=== PATIENT | female | born 1970 | race African-American/Black ===

== ENCOUNTER 2019-11-20 17:45 | Emergency (ER) | payer MEDICARE, MEDICAID, SELFPAY ==
[2019-11-20 17:47] VITALS: BP 125/97; PULSE 94; RESP 20; TEMP 36.2; O2SAT 100
[2019-11-20 19:18] VITALS: BP 125/85; PULSE 98; RESP 18; O2SAT 99
--- NOTE | 2019-11-20 19:30 | ED.EYEPROB ---
HPI - Eye Problem General Chief complaint: Eye Problems <Nikita Taveras PA-C - Last Filed: 11/20/19 19:40> Stated complaint: left eye pain <Nikita Taveras PA-C - Last Filed: 11/20/19 19:40> Time Seen by Provider: 11/20/19 18:38 <Nikita Taveras PA-C - Last Filed: 11/20/19 19:40> Source: patient <Nikita Taveras PA-C - Last Filed: 11/20/19 19:40> Mode of arrival: ambulatory <Nikita Taveras PA-C - Last Filed: 11/20/19 19:40> Limitations: no limitations <Nikita Taveras PA-C - Last Filed: 11/20/19 19:40> History of Present Illness HPI Narrative: Patient is a 49-year-old female who presents to emergency department for evaluation of left eye irritation for the last day noting that she believes she may have scratched her eye during the sleep patient notes 2 weeks ago she did the same thing and had accidentally poked herself in the eye but has started to have improvement. Patient notes irritation to the left eye worse with any movement with light sensitivity and some blurred vision <Nikita Taveras PA-C - Last Filed: 11/20/19 19:40> Related Data Allergies/adverse reactions: Allergies Allergy/AdvReac Type Severity Reaction Status Date / Time No Known Allergies Allergy Verified 11/20/19 17:59 <Nikita Taveras PA-C - Last Filed: 11/20/19 19:40> Review of Systems Review of Systems: All systems reviewed & are unremarkable except as noted in HPI and below <Nikita Taveras PA-C - Last Filed: 11/20/19 19:40> [facility] Past Medical History Medical History: Medical History Lung cancer <Nikita Taveras PA-C - Last Filed: 11/20/19 19:40> Social History Social History: Social History Smoking status: Former smoker <ANIA Ordaz Last Filed: 11/20/19 19:40> Exam Narrative: Exam Narrative: GENERAL: Well-appearing, well-nourished, and in no acute distress. HEAD: Normocephalic, atraumatic. EYES: PERRLA and EOMI. left eye with corneal abrasion over the iris at 6:00 conjunctival injection with clear discharge. . ENT: Nares clear, no rhinorrhea or epistaxis. Mucous membranes moist. CHEST: Clear to auscultation. No respiratory distress. No wheezes rales or rhonchi HEART: Regular rate and rhythm. No murmur heard. EXTREMITIES: Normal range of motion. No edema. SKIN: Warm, dry, no rash. NEURO: No focal deficits. Alert and oriented x3. Neurovascularly intact. Capillary refill less than 2 seconds PSYCH: Normal mood and affect. <ANIA Ordaz Last Filed: 11/20/19 19:40> Course Course Emergency Course: Patient in the room aware of case findings treatment plan and diagnosis agreeing to follow-up as directed with ophthalmology <ANIA Ordaz Last Filed: 11/20/19 19:40> Vital Signs Vital signs: Vital Signs Temperature 97.2 F L 11/20/19 17:47 Pulse Rate 94 11/20/19 17:47 Respiratory Rate 20 11/20/19 17:47 Blood Pressure 125/97 H 11/20/19 17:47 Pulse Oximetry 100 11/20/19 17:47 Temperature 97.2 F L 11/20/19 17:47 Pulse Rate 98 11/20/19 19:18 Respiratory Rate 18 11/20/19 19:18 Blood Pressure 125/85 11/20/19 19:18 Pulse Oximetry 99 11/20/19 19:18 <ANIA Ordaz Last Filed: 11/20/19 19:40> Vital Signs Temperature 97.2 F L 11/20/19 17:47 Pulse Rate 94 11/20/19 17:47 Respiratory Rate 20 11/20/19 17:47 Blood Pressure 125/97 H 11/20/19 17:47 Pulse Oximetry 100 11/20/19 17:47 Temperature 97.2 F L 11/20/19 17:47 Pulse Rate 98 11/20/19 19:18 Respiratory Rate 18 11/20/19 19:18 Blood Pressure 125/85 11/20/19 19:18 Pulse Oximetry 99 11/20/19 19:18 <Balbina Velasco MD - Last Filed: 11/20/19 19:42> MDM - Eye Problem MDM Narrative Medical decision making narrative: Patient with corneal abrasion in the room in
[2019-11-20 19:50] VITALS: BP 133/87; PULSE 77; RESP 17; TEMP 36.6; O2SAT 97
== END 2019-11-20 19:50 | disposition home or self-care (01) ==
PROVIDERS: Emergency Provider General Practice
DX: S05.02XA Injury of conjunctiva and corneal abrasion without foreign body, left eye, initial encounter (principal); Z87.891 Personal history of nicotine dependence; Z85.118 Personal history of other malignant neoplasm of bronchus and lung; W22.8XXA Striking against or struck by other objects, initial encounter
CPT/HCPCS: 99283

== ENCOUNTER 2020-01-02 19:01 | Emergency (ER) | payer MEDICARE, MEDICAID, SELFPAY ==
[2020-01-02] VITALS (9 sets, daily range): BP systolic 132–166; BP diastolic 80–119; PULSE 65–85; RESP 14–26; TEMP 36.3–37; O2SAT 96–100
--- NOTE | ~2020-01-02 | XR_ITS ---
XR foot RT min 3V DATE: 01/02/2020 19:52 INDICATION: Fall. Great toe injury, pain TECHNIQUE: 4 views of the right foot COMPARISON: None FINDINGS: No fracture or dislocation, periosteal reaction or bone destruction. IMPRESSION: Negative Reviewed, dictated and finalized at location A. IMPRESSION: Negative
--- NOTE | ~2020-01-02 | XR_ITS ---
XR wrist RT 2V DATE: 01/02/2020 21:04 INDICATION: Postoperative reduction examination TECHNIQUE: AP and crosstable lateral postoperative reduction views COMPARISON: 01/02/2020 prereduction radiographs FINDINGS: There is considerable interval improvement of the dorsal displacement, with only approximat caridad 3 mm residual dorsal displacement at the comminuted distal radial intra-articular fracture. There is mild impaction. There is reduction of the dorsal inclination of the distal radial articular surfa ce. Radiocarpal alignment is intact. A wrap superimposes the forearm and wrist. IMPRESSION: 3 mm residual dorsal displacement at comminuted intra-articular fracture of the distal ra dius; reduction of dorsal inclination of distal radial articular surface Reviewed, dictated and finalized at location A. IMPRESSION: 3 mm residual dorsal displacement at comminuted intra-articular fra cture of the distal radius; reduction of dorsal inclination of distal radial ar ticular surface
--- NOTE | ~2020-01-02 | XR_ITS ---
XR wrist RT min 3V DATE: 01/02/2020 19:52 INDICATION: Fall. Right wrist injury, pain, deformity TECHNIQUE: 3 views COMPARISON: None FINDINGS: There is a comminuted intra-articular fracture of the distal radius with almost complete do rsal displacement and prominent apex anterior angulation and associated dorsal inclination of the dis gunnar radial articular surface. Radiocarpal alignment is preserved. IMPRESSION: Comminuted intra-articular fracture of the distal radius with nearly complete dorsal disp lacement and prominent dorsal inclination of distal radial articular surface Reviewed, dictated and finalized at location A. IMPRESSION: Comminuted intra-articular fracture of the distal radius with nearl y complete dorsal displacement and prominent dorsal inclination of distal radia l articular surface
[2020-01-02] MEDS: ONDANSETRON INJ 4 MG/2 ML VIAL IV PUSH (19:49)
[2020-01-02] MEDS: MORPHINE SULFATE 4 MG/ML INJ IV PUSH (19:50)
--- NOTE | 2020-01-02 19:56 | ED.UPPEXIN ---
HPI - Extremity Injury (Upper) General Chief Complaint: Extremity Injury, Upper <Helen Soria PA-C - Last Filed: 01/02/20 22:25> Stated Complaint: R wrist pain <Helen Soria PA-C - Last Filed: 01/02/20 22:25> Time Seen by Provider: 01/02/20 19:23 <Helen Soria PA-C - Last Filed: 01/02/20 22:25> Source: patient <Helen Soria PA-C - Last Filed: 01/02/20 22:25> Mode of arrival: wheelchair <Helen Soria PA-C - Last Filed: 01/02/20 22:25> Limitations: no limitations <Helen Soria PA-C - Last Filed: 01/02/20 22:25> History of Present Illness HPI narrative: This is a 49-year-old female that presents the emergency department for right wrist injury sustained just prior to arrival. Reports she was running and tripped down 3 stairs. Reports catching herself with her right wrist. Reports that she has had pain and deformity of the right wrist. Reports decreased range of motion due to pain. Also notes pain in the right foot. Denies hitting her head, loss of consciousness, or numbness. <Helen Soria PA-C - Last Filed: 01/02/20 22:25> Related Data Allergies/Adverse Reactions: Allergies Allergy/AdvReac Type Severity Reaction Status Date / Time No Known Allergies Allergy Verified 01/02/20 19:29 <Helen Soria PA-C - Last Filed: 01/02/20 22:25> Review of Systems Review of Systems: Narrative: CONSTITUTIONAL: Denies fever MUSCULOSKELETAL: Reports joint pain, and myalgia. NEUROLOGIC: Denies numbness <Helen Soria PA-C - Last Filed: 01/02/20 22:25> All systems reviewed & are unremarkable except as noted in HPI and below <Helen Soria PA-C - Last Filed: 01/02/20 22:25> [facility] Social History Social History: Social History Smoking status: Former smoker Gender identity (if verbalized by the patient): Female <Helen Soria PA-C - Last Filed: 01/02/20 22:25> Exam Narrative: Exam Narrative: GENERAL: Well-appearing, well-nourished, and in no acute distress. HEAD: Normocephalic, atraumatic. EYES: EOMI. CHEST: Clear to auscultation. No respiratory distress. No wheezes rales or rhonchi HEART: Regular rate and rhythm. No murmur heard. Normal peripheral pulses. EXTREMITIES: Normal ROM, except decreased range of motion in the right wrist. Moderate edema and obvious deformity to the right wrist. Normal radial pulses. Normal sensation. Normal DP pulses SKIN: Warm, dry, no rash. NEURO: No focal deficits. Alert and oriented x3. PSYCH: Normal mood and affect <Helen Soria PA-C - Last Filed: 01/02/20 22:25> Course TOLL TEST WORKER/PA Physician Supervision For this patient encounter, I reviewed the TOLL TEST WORKER or PA documentation, treatment plan, and medical decision making; and I had [id number] time with this patient. <Carmen Cagle MD - Last Filed: 01/02/20 21:06> Consultations Consultation #1: Spoke with Dr. Parker about patient and work-up who will follow-up in clinic <Helen Soria PA-C - Last Filed: 01/02/20 22:25> Date: 01/02/20 <Helen Soria PA-C - Last Filed: 01/02/20 22:25> Time: 22:22 <ANIA Ng Last Filed: 01/02/20 22:25> Vital Signs Vital signs: Vital Signs Temperature 97.4 F L 01/02/20 19:16 Pulse Rate 80 01/02/20 19:16 Respiratory Rate 22 H 01/02/20 19:16 Blood Pressure 143/80 H 01/02/20 19:16 Pulse Oximetry 100 01/02/20 19:16 Temperature 98.6 F 01/02/20 21:10 Pulse Rate 69 01/02/20 21:24 Respiratory Rate 14 01/02/20 21:24 Blood Pressure 141/85 H 01/02/20 21:24 Pulse Oximetry 96 01/02/20 21:24 <Helen Soria PA-C - Last Filed: 01/02/20 22:25> Vital Signs Temperature 97.4 F L 01/02/20 19:16 Pulse Rate 80 01/02/20 19:16 Respiratory Rate 22 H 01/02/20 19:16 Blood Pressure 143/80 H 01/02/20 19:16 Pulse Oximetry 100 01/02/20 19:16 Temperature 98.6 F 01/02/20 21:10
--- NOTE | 2020-01-02 20:25 | PC.NURSE ---
2029 50 mg propofol administered ERP Gurjit IVP 2030 50 mg propofol administered ERP Gurjit IVP 2033 50 mg propofol administered ERP Gurjit IVP 2039 50 mg propofol administered ERP Gurjit IVP
== END 2020-01-02 22:30 | disposition home or self-care (01) ==
PROVIDERS: Emergency Provider Emergency Medicine
DX: S52.571A Other intraarticular fracture of lower end of right radius, initial encounter for closed fracture (principal); W10.9XXA Fall (on) (from) unspecified stairs and steps, initial encounter; Z87.891 Personal history of nicotine dependence
CPT/HCPCS: 25605; 73100; 73110; 73630; 96374; 96375; 99285; A4565; J2270; J2405; J7030

== ENCOUNTER 2020-01-14 14:10 | Outpatient (CLI) | payer MEDICARE, MEDICAID, SELFPAY ==
[2020-01-15 13:59] LABS: SARS-CoV-2 RNA PCR Negative
== END 2020-01-14 14:11 | disposition home or self-care (01) ==
LOC: ANHCOVIDDT 02-10 14:11
PROVIDERS: Visit Provider Orthopaedic Surgery
DX: Z01.818 Encounter for other preprocedural examination (principal); Z11.59 Encounter for screening for other viral diseases
CPT/HCPCS: 87635; C9803; U0003

== ENCOUNTER 2020-01-16 04:01 | Day surgery (SDC) | payer MEDICARE, MEDICAID, SELFPAY ==
[2020-01-12 14:08] VITALS: BMI 30.9
[2020-01-16] VITALS (10 sets, daily range): BP systolic 111–152; BP diastolic 72–99; PULSE 51–88; RESP 15–17; TEMP 36.1; O2SAT 94–100
--- NOTE | ~2020-01-16 | XR_ITS ---
XR surgery orthopedic 01/16/2020 09:55 Indication: Intraoperative fixation of right wrist fracture Procedure: 3 fluoroscopic images of the right wrist. 56 seconds of fluoroscopy. Comparison: 01/12/2020 Findings: There is anatomic alignment of the right wrist fracture distally status post intraoperative fixation with ventral side plate and multiple screws. Impression: 1: Anatomic alignment of comminuted distal radial fracture status post intraoperative fixation. Reviewed, dictated and finalized at location B. Impression: 1: Anatomic alignment of comminuted distal radial fracture status post intraope rative fixation.
--- NOTE | 2020-01-16 07:19 | WPDHPUPDATE1 ---
History and Physical Update Update Date/Time: 01/16/20 07:19 History and Physical has been reviewed, including an updated exam of the patient. There are NO changes in the patient's condition. Risks, benefits, and alternatives have been discussed and questions answered. Patient agrees to proceed with procedure.
[2020-01-16] MEDS: ACETAMINOPHEN 500 MG TABLET 1000 MG PO (07:40)
[2020-01-16] MEDS: LACTATED RINGERS 1,000 ML 30 ML IV CONT ×2 (07:49→10:18)
[2020-01-16] MEDS: KETOROLAC 15 MG/ML VIAL (*BKC) IV PUSH (07:50)
--- NOTE | 2020-01-16 07:54 | WPDANESEPPF ---
Anes - Initial Pre Proc Eval Procedure: Operation Date: 01/16/20 09:00 Proposed Procedures p Open Reduction Internal Fixation Of Right Wrist Fracture - Khalif Parker MD Date/Time: 01/16/20 07:54 Surgeon: Khalif Parker MD Pre Op Diagnosis: Right Distal Radius Fracture Patient Data Age: 49 Gender: F Height: 5 ft 1 in Weight: 73.3 kg Allergies Allergy/AdvReac Type Severity Reaction Status Date / Time No Known Allergies Allergy Verified 01/16/20 07:21 Home Medications Medication Instructions Recorded Confirmed Type alprazolam 0.25 mg disintegrating 0.25 mg PO DAILY 01/09/20 01/16/20 History tablet buspirone 10 mg tablet 10 mg PO BID 01/09/20 01/16/20 History cetirizine 10 mg capsule 10 mg PO DAILY 01/09/20 01/16/20 History morphine 15 mg tablet, crush 15 mg PO Q12H 01/09/20 01/16/20 History resistant, extended release naloxone 4 mg/actuation nasal spray 4 mg NASAL Q2M PRN 01/09/20 01/12/20 History omeprazole 20 mg capsule,delayed 20 mg PO DAILY 01/09/20 01/16/20 History release ondansetron 8 mg oral soluble film 8 mg PO Q12H PRN 01/09/20 01/12/20 History oxycodone 10 mg tablet 10 mg PO Q8H PRN 01/09/20 01/16/20 History prochlorperazine maleate 10 mg 10 mg PO Q8H PRN 01/09/20 01/12/20 History tablet sertraline 100 mg tablet 100 mg PO DAILY 01/09/20 01/16/20 History Patient hx anesthesia problems: none Family hx anesthesia problems: none PMFSH Social History Social History Smoking packs per day: 1 Smoking cigarettes per day: 20.0 Years smoked: 20 Smoking pack-years: 20.00 Smoking status: Former smoker Tobacco type: cigarettes Additional smoking assessment comments: QUIT 2013 Substance use: current Substance use type: marijuana Last use: 01/12/20 Gender identity (if verbalized by the patient): Female Spiritual care concerns: No Anes - Eval Final PreProcedure Day of Procedure 01/16/20 07:54 Patient weight: normal Heart: regular rate and rhythm Lungs: clear to auscultation Airway: Mallampati scale class II Neurological: alert and oriented Last oral intake: >/= 8 hours ASA classification: III Emergent: no Anesthetic plan: proceed Anesthesia type and monitoring: general LMA and standard monitoring Informed Consent: The patient's anesthetic plan and its attendant risks and benefits were discussed with the patient/family/POA. Questions were solicited and answers provided to the satisfaction of the patient/family/POA.
[2020-01-16] MEDS: ceFAZolin 2 GM/D5W 50 ML 2 GM/50 ML BAG IVPB (08:43)
[2020-01-16] MEDS: BUPIVACAINE/EPINEPHRINE 0.5% 30 ML VIAL INFILTRATE (09:15)
--- NOTE | 2020-01-16 11:35 | PM.PROC ---
Procedure Note - Detailed Date of procedure: 01/16/20 Pre-op diagnosis: Right Distal Radius Fracture Post-op diagnosis: same Procedure performed: ORIF distal radius fracture. Implants: [employer] volar plate; short, narrow. Anesthesia: GETA Surgeon: Khalif Parker MD Estimated blood loss (mL): 10 Complications: No immediate complications Condition: stable Disposition: PACU Findings: Operative details: Preoperative antibiotics were given. A general anesthetic was administered. The hand was prepped and draped in the usual sterile fashion with a well-padded tourniquet. The limb was exsanguinated and the tourniquet inflated to 250 millimeters of mercury. A longitudinal incision was created over the flexor carpi radialis tendon. Dissection was brought down through the sheath. The pronator quadratus was identified and released off of the radius. The fracture was carefully exposed and cleared of debris. Reduction was obtained with traction and manipulation. Fluoroscopy was used to confirm anatomic reduction. The volar plate was placed on the radius and the position was confirmed. Provisional pins were placed. The dynamic cortical screw was applied. The plate was fine tuned and fluoroscopy was use to confirm that the joint would not be violated. Subsequent distal pins and screws were placed, followed by the proximal row. The wound was irrigated and closed. #1 Vicryl suture was used to reapproximate the pronator quadratus. The tourniquet was released and meticulous hemostasis was confirmed. The skin was closed with 3-0 Monocryl suture and a running 4-0 Monocryl suture. Steri-Strips were applied on the skin. A sterile bulky dressing with a volar splint was applied.
--- NOTE | 2020-01-16 12:02 | SUR.PHASEII ---
1153 - dr. mccauley called in regards to pt's pain medication. additional oxycodone ordered to match what patient takes at home for pain control.
== END 2020-01-16 13:09 | disposition home or self-care (01) ==
PROVIDERS: Visit Provider Orthopaedic Surgery
PROC: (CPT 25575; principal; 2020-01-16 09:00)
DX: S52.501A Unspecified fracture of the lower end of right radius, initial encounter for closed fracture (principal); X58.XXXA Exposure to other specified factors, initial encounter; Z87.891 Personal history of nicotine dependence; F12.90 Cannabis use, unspecified, uncomplicated
CPT/HCPCS: 25608; A9270; J0690; J1100; J1885; J2250; J2405; J2704; J3010; J7120

== ENCOUNTER 2022-04-25 23:45 | Emergency (ER) | payer MEDICARE, MEDICAID, SELFPAY ==
--- NOTE | ~2022-04-25 | XR_ITS ---
EXAMINATION: XR ankle LT min 3V DATE: 04/26/2022 00:52 INDICATION: Left ankle pain post injury TECHNIQUE: Anteroposterior, oblique, mortise, and lateral views of the left ankle were obtained. COMPARISON: None. FINDINGS: Alignment is normal. No fracture. Joint spaces are well maintained. No ankle joint effusion. Mild s oft tissue swelling anterior to the ankle. IMPRESSION: 1. No osseous abnormality. Reviewed, dictated and finalized at location A. IMPRESSION: 1. No osseous abnormality.
--- NOTE | ~2022-04-25 | XR_ITS ---
EXAMINATION: XR wrist LT min 3V DATE: 04/26/2022 00:51 INDICATION: Left wrist pain post injury TECHNIQUE: Posteroanterior, ulnar deviation, oblique, and lateral views of the left wrist were obtain ed. COMPARISON: none FINDINGS: Bone alignment is normal. No fracture. Joint spaces are well maintained. There is no elbow joint effu laura. IMPRESSION: 1. No acute osseous abnormality. Reviewed, dictated and finalized at location A.
--- NOTE | ~2022-04-25 | XR_ITS ---
EXAMINATION: XR wrist RT min 3V DATE: 04/26/2022 00:52 INDICATION: Right wrist pain post fall TECHNIQUE: Posteroanterior, ulnar deviation, oblique, and lateral views of the right wrist were obtai bettye. COMPARISON: 04/05/2020 FINDINGS: Interval healing in essentially anatomic alignment of a prior distal right radial fracture which is f ixed with a volar T plate and screws. 1-2 mm ulnar positive variance. No acute fractures identified. 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 Soft tissues are unremarkabl e. IMPRESSION: 1. Old healed internally fixed distal right radial fracture which is in near-anatomic alignment. No a cute osseous abnormality. Reviewed, dictated and finalized at location A. IMPRESSION: 1. Old healed internally fixed distal right radial fracture which is in near-an atomic alignment. No acute osseous abnormality.
[2022-04-25 23:58] VITALS: BP 125/76; PULSE 84; RESP 16; TEMP 36.7; O2SAT 96
--- NOTE | 2022-04-26 00:12 | ED.FALL ---
HPI - Fall General Chief Complaint: Fall Stated Complaint: Fall Time Seen by Provider: 04/25/22 23:56 Source: patient Mode of arrival: ambulatory Limitations: no limitations History of Present Illness HPI Narrative: This is a 51 year old female that presents to the ER after a fall two nights ago. Reports she missed the last step. Reports she fell forward and caught herself with her wrists. Also reports twisting her left ankle. She did not hit her head or lose consciousness. Denies decreased ROM or numbness. Related Data Home Medications Medication Instructions Recorded Confirmed alprazolam 0.25 mg disintegrating 0.25 mg PO DAILY 01/09/20 01/16/20 tablet buspirone 10 mg tablet 10 mg PO BID 01/09/20 01/16/20 cetirizine 10 mg capsule (All Day 10 mg PO DAILY 01/09/20 01/16/20 Allergy (cetirizine)) morphine 15 mg tablet, crush 15 mg PO Q12H 01/09/20 01/16/20 resistant, extended release naloxone 4 mg/actuation nasal spray 4 mg intranasal Q2M PRN Sedation 01/09/20 01/12/20 omeprazole 20 mg capsule,delayed 20 mg PO DAILY 01/09/20 01/16/20 release ondansetron 8 mg oral soluble film 8 mg PO Q12H PRN Nausea 01/09/20 01/12/20 prochlorperazine maleate 10 mg 10 mg PO Q8H PRN Nausea 01/09/20 01/12/20 tablet sertraline 100 mg tablet 100 mg PO DAILY 01/09/20 01/16/20 Allergies Allergy/AdvReac Type Severity Reaction Status Date / Time No Known Allergies Allergy Verified 01/16/20 07:21 Review of Systems Review of Systems: CONSTITUTIONAL: Denies fever MUSCULOSKELETAL: Reports joint pain, and myalgia. NEUROLOGIC: Denies numbness All systems reviewed & are unremarkable except as noted in HPI and below PMFSH Past Medical History Medical History (Updated 04/26/22 @ 01:13 by Helen Soria PA-C) Brain mass Lung cancer Surgical History Surgical History History of brain surgery Family History Family History Unknown No problems noted. Social History Social History Smoking packs per day: 1 Smoking cigarettes per day: 20.0 Years smoked: 20 Smoking pack-years: 20.00 Smoking status: Former smoker Tobacco type: cigarettes Additional smoking assessment comments: QUIT 2012 Substance use: current Substance use type: marijuana Last use: 01/12/20 Gender identity (if verbalized by the patient): Female Spiritual care concerns: No Exam Narrative: GENERAL: Well-appearing, well-nourished, and in no acute distress. HEAD: Normocephalic, atraumatic. EYES: EOMI. CHEST: Clear to auscultation. No respiratory distress. No wheezes rales or rhonchi HEART: Regular rate and rhythm. No murmur heard. Normal peripheral pulses. EXTREMITIES: Normal range of motion. No edema or obvious deformity. Normal peripheral pulses. Normal sensation SKIN: Warm, dry, no rash. NEURO: No focal deficits. Alert and oriented x3. PSYCH: Normal mood and affect Course Vital Signs Vital signs: Vital Signs Temperature 98.1 F 04/25/22 23:58 Pulse Rate 84 04/25/22 23:58 Respiratory Rate 16 04/25/22 23:58 Blood Pressure 125/76 04/25/22 23:58 Pulse Oximetry 96 04/25/22 23:58 Oxygen Delivery Room Air 04/25/22 23:58 Temperature 98.1 F 04/25/22 23:58 Pulse Rate 84 04/25/22 23:58 Respiratory Rate 16 04/25/22 23:58 Blood Pressure 125/76 04/25/22 23:58 Pulse Oximetry 96 04/25/22 23:58 Oxygen Delivery Room Air 04/25/22 23:58 MDM - Fall MDM Narrative Medical decision making narrative: Patient presents emergency department after a fall from a step 2 nights ago. She denies hitting her head or loss of consciousness. She is neurovascularly intact. Reports pain in her bilateral wrists and left ankle. Bilateral wrist x-rays of left ankle x-rays without acute osseous abnormalities. Patient instructed to rest, ice an
== END 2022-04-26 01:30 | disposition home or self-care (01) ==
PROVIDERS: Emergency Provider Emergency Medicine
DX: S99.912A Unspecified injury of left ankle, initial encounter (principal); S69.92XA Unspecified injury of left wrist, hand and finger(s), initial encounter; S69.91XA Unspecified injury of right wrist, hand and finger(s), initial encounter; Z87.891 Personal history of nicotine dependence; Z85.118 Personal history of other malignant neoplasm of bronchus and lung; W10.9XXA Fall (on) (from) unspecified stairs and steps, initial encounter
CPT/HCPCS: 73110; 73610; 99284

== ENCOUNTER 2023-03-08 11:39 | Emergency (ER) | payer MEDICARE, MEDICAID, SELFPAY ==
--- NOTE | ~2023-03-08 | CT_ITS ---
EXAMINATION: CT knee LT wo con DATE: 03/08/2023 15:37 INDICATION: Ground-level fall with diffuse left knee pain TECHNIQUE: High resolution computed tomography (CT) of the left knee was performed without intravenou s contrast. Additional sagittal and coronal reconstructions were performed. Automated exposure contro l and iterative reconstruction technique were employed. The dose-length product was 641.20 mGy-cm. COMPARISON: Left knee radiographs dated 03/18/2023 FINDINGS: Comminuted proximal left tibial fracture. This includes a nondisplaced oblique fracture plane extendi ng from the anterior margin of the medial and lateral tibial plateau posterior inferiorly to the meta physeal region approximately 2 cm distal to the articular surface. There is fragmentation and impacti on of multiple fragments along the anterior metaphyseal region of both the medial and lateral tibial plateaus. This appears to spare the majority of the articular cortices. A minimal portion of the ante romedial rim of the medial tibial plateau is depressed by up to 6 mm. There is a nondisplaced fractur e plane involving a small portion of the anterolateral aspect the lateral tibial plateau stenting pro ximally 6 mm centrally from the rim. No other fractures identified. Large layering lipohemarthrosis a t the suprapatellar pouch. No appreciable osteophytosis to suggest significant osteoarthritis. There is a small amount of fluid tracking along the myotendinous junction between the soleus muscle and med ial head of the gastrocnemius muscle. IMPRESSION: 1. Comminuted intra-articular fracture of the proximal left tibia with impaction and majority the com minution extending along the anterior margin of the medial and lateral tibial plateaus pulmonary mild depression a minimal amount of a anteromedial margin of the lateral tibial plateau but sparing the m ajority of the articular surfaces. 2. Associated large left knee lipohemarthrosis. 3. Fluid extending along the tendon between the soleus and medial head of the gastrocnemius most like ly originating extension of reactive edema or hematoma related to the proximal tibial fracture with d ifferential including muscle strain. Reviewed, dictated and finalized at location A. IMPRESSION: 1. Comminuted intra-articular fracture of the proximal left tibia with impactio n and majority the comminution extending along the anterior margin of the media l and lateral tibial plateaus pulmonary mild depression a minimal amount of a a nteromedial margin of the lateral tibial plateau but sparing the majority of th e articular surfaces. 2. Associated large left knee lipohemarthrosis. 3. Fluid extending along the tendon between the soleus and medial head of the g astrocnemius most likely originating extension of reactive edema or hematoma re lated to the proximal tibial fracture with differential including muscle strain .
--- NOTE | ~2023-03-08 | XR_ITS ---
Left Knee Technique: AP, lateral, and sunrise views were obtained. Clinical History: Pain Findings: There is a transverse, minimally displaced fracture through the proximal tibia, extending t owards the very corner of the lateral tibial plateau, the fracture is predominantly metaphyseal regio n. There is also transverse, essentially nondisplaced fracture of the tip of the fibular head.. Joint spaces are preserved without degenerative or erosive change. Soft tissues are unremarkable. Lipohema rthrosis present. Impression: Transverse fracture predominantly through the proximal tibial metaphyseal region, with probable focal intra-articular extension at the lateral corner of the tibial plateau. Transverse nondisplaced fracture the tip of the fibular head. Lipohemarthrosis. Reviewed, dictated and finalized at location . Impression: Transverse fracture predominantly through the proximal tibial metaphyseal regio n, with probable focal intra-articular extension at the lateral corner of the t ibial plateau. Transverse nondisplaced fracture the tip of the fibular head. Lipohemarthrosis.
[2023-03-08 11:42] VITALS: BP 154/75; PULSE 69; RESP 18; TEMP 36.5; O2SAT 100
--- NOTE | 2023-03-08 13:16 | ED.FALL ---
HPI - Fall General Chief Complaint: Fall Stated Complaint: GLF, right knee popped Time Seen by Provider: 03/08/23 13:13 Source: patient and EMS Mode of arrival: EMS Limitations: no limitations History of Present Illness HPI Narrative: 52 years old -Emirati female came with left knee pain. Patient had a wasp on her arm, got panicky, lost her balance and fell, ground fall, landed on her bottom felt a pop at the left knee, pain is 10 out of 10. History of lung cancer on chemotherapy for the last 8 years. She denies any other injuries. Related Data Home Medications Medication Instructions Recorded Confirmed alprazolam 0.25 mg disintegrating 0.25 mg PO DAILY 01/09/20 01/16/20 tablet buspirone 10 mg tablet 10 mg PO BID 01/09/20 01/16/20 cetirizine 10 mg capsule (All Day 10 mg PO DAILY 01/09/20 01/16/20 Allergy (cetirizine)) morphine 15 mg tablet, crush 15 mg PO Q12H 01/09/20 01/16/20 resistant, extended release naloxone 4 mg/actuation nasal spray 4 mg intranasal Q2M PRN Sedation 01/09/20 01/12/20 omeprazole 20 mg capsule,delayed 20 mg PO DAILY 01/09/20 01/16/20 release ondansetron 8 mg oral soluble film 8 mg PO Q12H PRN Nausea 01/09/20 01/12/20 prochlorperazine maleate 10 mg 10 mg PO Q8H PRN Nausea 01/09/20 01/12/20 tablet sertraline 100 mg tablet 100 mg PO DAILY 01/09/20 01/16/20 apixaban 5 mg tablet (Eliquis) mg 03/08/23 Allergies Allergy/AdvReac Type Severity Reaction Status Date / Time No Known Allergies Allergy Verified 03/08/23 12:09 Review of Systems Review of Systems: All systems reviewed & are unremarkable except as noted in HPI and below PMFSH Past Medical History Medical History Brain mass Lung cancer Surgical History Surgical History History of brain surgery Family History Family History Unknown No problems noted. Social History Social History Smoking packs per day: 1 Smoking cigarettes per day: 20.0 Years smoked: 20 Smoking pack-years: 20.00 Smoking status: Former smoker Tobacco type: cigarettes Additional smoking assessment comments: QUIT 2013 Substance use: current Substance use type: marijuana Last use: 01/12/20 Gender identity (if verbalized by the patient): Female Spiritual care concerns: No Exam Narrative: General appearance: Well-developed, well-nourished Skin: Normal color Head: Normocephalic, nontraumatic Eyes: Clear conjunctiva ENT: Oropharynx normal, ears normal, nose normal Neck: Supple, nontender Chest and respiratory: Airway patent, no respiratory distress, no accessory muscle use Heart: Regular rate/rhythm Abdomen: Soft, nontender, no organomegaly, quiet bowel sounds Vascular: Normal peripheral pulses, normal capillary refill. Musculoskeletal: Severe diffuse tenderness of the left knee, severe limited range of motion, swelling. Neurologic: Alert and oriented ?3, MANAGER SALT is normal as tested, no gross motor deficit Course Consultations Consultation #1: Dr. Parker [facility] Date: 03/08/23 Time: 15:18 Consultation #2: [facility], Dr. Hall, orthopedic on-call Patient can go home and to call orthopedic clinic in the morning at [phone] Date: 03/08/23 Time: 15:51 Vital Signs Vital signs: Vital Signs Temperature 36.5 C 03/08/23 11:42 Pulse Rate 69 03/08/23 11:42 Respiratory Rate 18 03/08/23 11:42 Blood Pressure 154/75 H 03/08/23 11:42 Pulse Oximetry 100 03/08/23 11:42 Oxygen Delivery Room A
[2023-03-08] MEDS: HYDROmorphone HCL INJ (*CRX) 1 MG/ML SYR IM (13:24)
[2023-03-08] MEDS: ONDANSETRON HCL ODT 4 MG TABLET PO (13:24)
[2023-03-08 13:28] VITALS: BP 139/88; PULSE 70; RESP 18; O2SAT 100
--- NOTE | 2023-03-08 15:30 | PC.NURSE ---
Pt taken to CT at this time
[2023-03-08 16:23] VITALS: BP 136/90; PULSE 99; RESP 18; O2SAT 100
== END 2023-03-08 17:09 | disposition home or self-care (01) ==
PROVIDERS: Emergency Provider Emergency Medicine
DX: S82.142A Displaced bicondylar fracture of left tibia, initial encounter for closed fracture (principal); C34.90 Malignant neoplasm of unspecified part of unspecified bronchus or lung; Z87.891 Personal history of nicotine dependence; Z79.60 Long term (current) use of unspecified immunomodulators and immunosuppressants; Z79.01 Long term (current) use of anticoagulants; W18.39XA Other fall on same level, initial encounter
CPT/HCPCS: 73564; 73700; 96372; 99284; A9270; J1170

== ENCOUNTER 2024-09-18 21:07 | Emergency (ER) | payer MEDICARE, MEDICAID, SELFPAY ==
--- NOTE | ~2024-09-18 | CT_ITS ---
Non-contrast Head CT History: Syncope Technique: Axial non-contrast imaging of the brain was performed. Dose reduction technique was used on this scan by utilizing automated exposure control and iterative reconstruction technique. The dose -length product (DLP) was 681.00 mGy-cm. Findings: There is no evidence of intracranial hemorrhage, mass lesion, or acute infarct. Brain par enchyma appears normal. The ventricles and subarachnoid spaces are normal in size. The calvarium ap pears normal. The visualized paranasal sinuses and mastoid air cells are clear. There is postoperati ve change at the right occipital skull. Impression: No intracranial abnormality seen. Prior occipital craniotomy. Reviewed, dictated and finalized at location . Impression: No intracranial abnormality seen. Prior occipital craniotomy.
--- NOTE | ~2024-09-18 | CT_ITS ---
Clinical Indication: Syncope CT Scan of the Chest with Contrast: Technique: Contiguous sections were acquired throughout the chest after intravenous administration of 100 cc of Omnipaque 350. Dose reduction technique was used on this scan by utilizing automated expos ure control and iterative reconstruction technique. The dose-length product (DLP) was 523.07 mGy-cm. Findings: There is no evidence of any significant mediastinal, hilar or axillary lymphadenopathy. There is no f illing defect in the pulmonary arterial tree to suggest pulmonary embolus. There is no evidence of ao rtic dissection or aneurysm. There is no evidence of pleural or pericardial effusion. There is moderate to advanced emphysema with areas of scattered chronic interstitial change. Irregula r somewhat bandlike consolidation in the left lung apex extending to the left hilum is present, sugge stive of postradiation change or postoperative change with probable fiducial markers or clips present . There is additional irregular airspace opacity in the right upper lobe extending towards the hilum, again with surgical clips or fiducial markers, compatible with additional postoperative or posttreat ment change. Images through the upper abdomen reveal no abnormalities. Impression: No evidence of pulmonary embolus, aortic dissection, or aortic aneurysm. Somewhat bandlike irregular consolidation at the left lung apex extending to the hilum, and in the ri ght upper lobe, extending to the hilum, suggestive of postoperative and/or post treatment change. Cor relate with relevant clinical history. Comparison with any outside prior exams would be useful to ass ess for chronicity/interval change. Moderate to advanced emphysema with mild scattered chronic interstitial changes. Reviewed, dictated and finalized at [facility]. Impression: No evidence of pulmonary embolus, aortic dissection, or aortic aneurysm. Somewhat bandlike irregular consolidation at the left lung apex extending to th e hilum, and in the right upper lobe, extending to the hilum, suggestive of pos toperative and/or post treatment change. Correlate with relevant clinical histo ry. Comparison with any outside prior exams would be useful to assess for chron icity/interval change. Moderate to advanced emphysema with mild scattered chronic interstitial changes .
--- NOTE | ~2024-09-18 | XR_ITS ---
CHEST RADIOGRAPH, PA AND LATERAL CLINICAL HISTORY: syncopal episode, on blood thinners with a history of malignancy. COMPARISON: None available TECHNIQUE: PA and lateral views of the chest. FINDINGS The cardiomediastinal silhouette is unremarkable. Multiple clips projecting over the bilateral lung fernandez. 12 mm nodule within the right upper lobe. Coarse interstitial lung markings within the remainder of the chest. The lungs are otherwise clear. IMPRESSION: 12 mm nodule within the right upper lobe (possibly related to patient's history of chemotherapy). Coarse interstitial markings within the remainder of the chest without focal infiltrate or effusion. Reviewed, dictated and finalized at location A. IMPRESSION: 12 mm nodule within the right upper lobe (possibly related to patient's history of chemotherapy). Coarse interstitial markings within the remainder of the chest without focal in filtrate or effusion.
--- OUTSIDE RECORDS SUMMARY | 2024-09-18 21:12 | XMS_ITS | Encounter Summary ---
Author Organization [facility] Address [address] [place] [address] Care Team Providers Care Glass Worker Name Role Phone Marci Jay DO Unavailable [phone] Lisandra Jay MD Primary Care Provider George GARCIA MD, Francis G Primary Care Provider [phone] Eva Wen MD Unavailable Elizabeth Chao RN Unavailable Unavailabl Delonte Locke MD Unavailable Ana Car [facility] Unavailable [phone] Chapis Isabel MD Primary Care Provider [phone] Chapis Isabel MD Primary Care Provider Reason for Visit * Reason Onset Date Comments MEDICATION REFILL 09/20/2021 Encounter Details Date Type Department Care Team (Late st Contact Info) Description 09/20/2021 [facility] [address] [place] [address] Colton Perry MD [address] [facility] [place] [address] MEDICATION REFILL Social History Tobacco Use Types Packs/Day Years Used Date Smoking Tobacco: Former Cigarettes Q uit: 2014 Smokeless Tobacco: Never Alcohol Use Standard Drinks/Week Comments No 0 (1 standard drink = 0.6 oz pur e alcohol) Quit 2 years ago PHQ-2 Answer Date Recorded PHQ2 TOTAL SCORE 5 09/01/2021 Sex and Gender Information Value Date Recorded Sex Assigned at Not on file Gender Identity Not on file Sexual Orientation Not on file documented as of this encounter Functional Status Functional Status Response Date of Assess ment Is person deaf or have serious hearing difficult y? No 12/01/2018 Is person blind or have serious difficulty seein g? No 12/01/2018 Does person have serious dif ficulty walking/climbing stairs? No 12/01/2018 Does person have difficulty dressing/bathing? No 12/01/2018 Does person have difficulty doing errands alone? No 12/01/2018 Cognitive Status Response Date of Assessm ent Does person have difficulty concentrating/remembering/making decisions? No 12/01/2018 documented as of this encounter Plan of Treatment Upcoming Encounters Date Type Department Care Team (Late st Contact Info) Description 09/25/2024 10:00 AM CDT Hospital Encounter [facility] [address] [place] [address] [place] [address] [facility] [address] [place] [phone] 09/25/2024 10:40 AM CDT Office Visit [facility] - Hematology/Oncology [address] [place] [phone] Delonte Rosario MD [address] [place] [phone] 10/07/2024 3:00 PM CDT Office Visit [facility] - ENT [address] [place] [phone] Lalit Jackson MD [address] [place] [address] [place] [address] 10/07/2024 3:30 PM CDT Testing Visit [facility] - ENT [address] [place] [phone] Ronaldo Cavanaugh, PhD [address] [place] [address] [address] [place] [address] 11/06/2024 10:00 AM CDT Appointment [facility] [address] [place] [address] [place] [address] [facility] [address] [place] [phone] 11/06/2024 2:40 PM CDT Office Visit [facility] - Family Medicine [address] [place] [phone] Chapis Isabel MD [address] [place] [address] [address] [place] [address] 01/06/2025 12:30 PM CDT Appointment [facility] MRI [address] [place] [address] Colton Hollingsworth MD [address] [place] [address] 01/06/2025 1:30 PM CDT Appointment [facility] CAT SCAN [address] [place] [address] Colton Hollingsworth MD [address] [place] [phone] 01/12/2025 9:00 AM CDT Appointment [facility] ONC [address] [place] [address] Colton Hollingsworth MD [address] [place] [address] documented as of this encounter Goals Goal Patient Goal Type Associated Problems Recent Progress Patient-Stated? 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) Malignant neoplasm of lung, unspecified laterality, unspecified part of lung (HCC) documented in this encounter Care Teams Glass Worker Relationship Specialty Start Date End Date Lisandra Jay MD [address] [place] [address] PCP - General 09/02/21 10/30/21 Mannie Vazquez III, MD [address] [place] [phone] PCP - General 10/31/21 11/14/22 Chapis Isabel MD [address] [place] [phone] PCP - General Family Medicine 12/26/23 02/17/24 Chapis Isabel MD [address] [place] [phone] PCP - General 03/08/24 Marci Jay DO [address] [place] Resident - PCP Student Resident 10/12/20 06/11/22 Eva Wen MD [address] [place] [address] Resident - PCP Internal Medicine 06/12/22 02/17/24 Elizabeth Chao RN Registered Nurse 05/07/23 02/17/24 Delonte Rosario MD [address] [place] [address] Hematology and Oncology 05/07/23 Ana Car APRN-YOANA [address] [place] [address] Nurse Practitioner Nurse Practitioner Family 05/07/23 02/17/24 documented as of this encounter
--- OUTSIDE RECORDS SUMMARY | 2024-09-18 21:12 | XMS_ITS | Encounter Summary ---
Author Organization [facility] Address [address] [facility] [place] [address] Care Team Providers Care Research Scientist Name Role Phone Marci Jay DO Unavailable [phone] Gayle Bellamy ASSISTANT DIRECTOR OF SECURITY-SALES ADVISORY MANAGER Primary Care Provider + George GARCIA MD, Francis G Primary Care Provider [phone] Gayle Bellamy ASSISTANT DIRECTOR OF SECURITY-SALES ADVISORY MANAGER Primary Care Provider + Lisandra Jay MD Primary Care Provider George GARCIA MD, Francis G Primary Care Provider [phone] Eva Wen MD Unavailable Elizabeth Chao RN Unavailable Unavailabl Delonte Locke MD Unavailable Ana Car ASSISTANT DIRECTOR OF SECURITY-SALES ADVISORY MANAGER Unavailable + [phone] Chapis Isabel MD Primary Care Provider Chapis Isabel MD Primary Care Provider [phone] Reason for Visit * Reason Onset Date Comments MEDICATION REFILL 05/02/2021 Encounter Details Date Type Department Care Team (Late st Contact Info) Description 05/02/2021 [facility] [address] [place] [address] Huey Schafer MD [address] [facility] [place] [address] MEDICATION REFILL Social History Tobacco Use Types Packs/Day Years Used Date Smoking Tobacco: Former Cigarettes Q uit: 2015 Smokeless Tobacco: Never Alcohol Use Standard Drinks/Week Comments No 0 (1 standard drink = 0.6 oz pur e alcohol) Quit 2 years ago Sex and Gender Information Value Date Recorded [...] Encounters Date Type Department Care Team (Late Contact Info) Description 09/25/2024 10:00 AM CDT Hospital Encounter [facility] [address] [place] [address] [place] [address] [facility] [address] [place] [phone] 09/25/2024 10:40 AM CDT Office Visit [facility] - Hematology[facility]Oncology [address] [place] [phone] Delonte Rosario MD [address] [place] [phone] 10/07/2024 3:00 PM CDT Office Visit [facility]NT [address] [place] [address] Lalit Jackson MD [address] [place] [address] [place] [address] 10/07/2024 3:30 PM CDT Testing Visit [facility] - ENT [address] [place] [phone] Ronaldo Cavanaugh, PhD [address] [place] [address] [place] [address] 11/06/2024 10:00 AM CDT Appointment [facility] [address] [place] [address] [place] [address] [facility] [address] [place] [phone] 11/06/2024 2:40 PM CDT Office Visit [facility] - Family Medicine [address] [place] [phone] Chapis Isabel MD [address] [place] [address] [place] [address] 01/06/2025 12:30 PM CDT Appointment [facility] MRI [address] [place] [address] Colton Hollingsworth MD [address] [place] [address] 01/06/2025 1:30 PM CDT Appointment [facility] CAT SCAN [address] [place] [phone] Colton Hollingsworth MD [address] [place] [address] 01/12/2025 9:00 AM CDT Appointment [facility] [address] [place], [place] [phone] Colton Hollingsworth MD [address] [place], [place] [phone] documented as of this encounter Goals Goal Patient Goal Type Associated Problems Recent Progress Patient-Stated? 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) Malignant neoplasm of lung, unspecified laterality, unspecified part of lung (HCC) documented in this encounter Care Teams Research Scientist Relationship Specialty Start Date End Date Gayle Bellamy APRN-YOANA [address] DIV OF [facility] [place] [address] PCP - General 10/13/20 05/29/21 Mannie Vazquez III, MD [address] [place] [phone] PCP - General 05/30/21 06/08/21 Gayle Bellamy, JAY-SALES ADVISORY MANAGER [address] DIV OF [facility] [place] [address] PCP - General 06/09/21 09/01/21 Lisandra Jay MD [address] [place] [address] PCP - General 09/02/21 10/30/21 Mannie Vazquez III, MD [address] [place] [phone] PCP - General 10/31/21 11/14/22 Chapis Isabel MD [address] [place] [address] PCP - General Family Medicine 12/26/23 02/17/24 Chapis Isabel MD [address] [place] [phone] PCP - General 03/08/24 Marci Jay DO [address] DIV OF [facility] INTERNAL MEDICINE [place] Resident - PCP Student Resident 10/12/20 06/11/22 Eva Wen MD [address] [place] [address] Resident - PCP Internal Medicine 06/12/22 02/17/24 Elizabeth Chao, RN Registered Nurse 05/07/23 02/17/24 Delonte Rosario MD [address] [place] [phone] Hematology and Oncology 05/07/23 Ana Car APRN-YOANA [address] [place] [phone] Nurse Practitioner Nurse Practitioner Family 05/07/23 02/17/24 documented as of this encounter
--- OUTSIDE RECORDS SUMMARY | 2024-09-18 21:12 | XMS_ITS | Clinical Summary ---
Author Organization [facility] Address [address] [place] [address] Care Team Providers Care Promotions Representative Name Role Phone Chapis Isabel MD Primary Care Provider [phone] Source Comments [facility],non-owned Affiliates and Associated Physician Practices is amultiple site organization consisting of ambulatory clinics and hospital sitesin [place], [place], [place] and [place]. This disclosure is being madepursuant to the Care Everywhere program and may not contain all information available regarding this patient. Last updated 18.[facility] Luminary Micro Allergies No known active allergies Medications * Be aware that medications may not be up to date on this document. Alwaysverify current medications with the patient. Medication Sig Dispensed Refills Start Date End Date Status naloxone HCl (NARCAN) 4 MG/0.1ML nasal sprayIndication s:Cancer associated pain Yancey 1 spray into the nose as needed 1 device 1 9 Active ARTIFICIAL TEAR OP 1 drop by Ophthalmic route as needed Active buPROPion XL 24hr (WELLBUTRIN-XL) 150 MG tabletIndicatio ns:Recurrent major depressive disorder, in full remission Take 1 (one) tablet by mouth every morning 90 tablet 2 2 Active acetaminophen (Tylenol) 500 MG tablet Take 2 (two) tablets by mouth every 6 hours Maximum allowable Acetaminophen amount = 4 Grams (4000 mg) / 24 hours. 3 Active bisacodyl (Dulcolax) 10 MG suppository Insert 1 (one) suppository into the rectum once as needed for Constipation (no BM 4 hours MOM/Magnesium hydroxide) 3 Active docusate sodium (Colace) 100 MG capsule Take 1 (one) capsule by mouth 2 times daily 3 Active Additional Information Patient not taking.Reported on 09/18/2024 polyethylene glycol 3350 (Miralax) 17 g packet Take 17 (seventeen) g by mouth once daily 3 Active Additional Information Patient taking differently:17 g OralDAILY PRN, Reported on 08/04/2024 melatonin 3 MG tablet Take 1 (one) tablet by mouth nightly as needed - may repeat one time for Insomnia 3 Active nicotine (Nicoderm CQ) 14 MG/24HR patchIndication s:Encounter for smoking cessation counseling Apply 1 (one) patch to skin once daily 30 patch 1 4 Active metFORMIN ER 24hr (Glucophage XR) 500 MG tabletIndicatio ns:Pre-diabetes Take 1 (one) tablet by mouth daily with dinner 90 tablet 3 4 Active traZODone (Desyrel) 50 MG tablet Take 1 (one) tablet by mouth at bedtime 90 tablet 3 4 Active diphenhydrAMINE -zinc acetate (Benadryl Extra Strength) 2-0.1 % creamIndication s:amount per pharmacy for 1 month Apply to affected area as needed for Itching Reasons: amount per pharmacy for 1 month 6 g 2 4 Active triamcinolone acetonide (Kenalog) 0.1 % cream APPLY CREAM EXTERNALLY TO AFFECTED AREA THREE TIMES DAILY 30 g 4 Active triamcinolone acetonide (Kenalog) 0.1 % cream Apply to affected area 3 times daily 30 g 4 Active guaiFENesin ER 12hr (Mucinex) 600 MG tabletIndicatio ns:Acute cough,Congestio n of nasal sinus Take 1 (one) tablet by mouth every 12 hours 60 tablet 5 Active Additional Information Patient not taking.Reported on 09/18/2024 benzonatate (Tessalon) 200 MG capsuleIndicati ons:Acute cough Take 1 (one) capsule by mouth 3 times daily as needed for Cough 30 capsule 5 Active ALPRAZolam (Xanax) 0.5 MG tabletIndicatio ns:Metastatic cancer to brain (HCC) TAKE 1/2 (ONE-HALF) TABLET BY MOUTH TWICE DAILY NEEDED 30 tablet 5 Active Eliquis 5 MG tabletIndicatio ns:Blood clot in vein Take 1 tablet by mouth twice daily 60 tablet 5 Active famotidine (Pepcid) 20 MG tabletIndicatio ns:Gastroesopha geal reflux disease, unspecified whether esophagitis present Take 1 tablet by mouth twice daily 90 tablet 5 Active omeprazole (PriLOSEC) 40 MG capsuleIndicati ons:Gastroesoph ageal reflux disease, unspecified whether esophagitis present TAKE 1 CAPSULE BY MOUTH ONCE DAILY BEFORE BREAKFAST 90 capsule 5 Active morphine CR 12hr (MS Contin) 15 MG tabletIndicatio ns:Cancer associated pain,Malignant neoplasm of lung, unspecified laterality, unspecified part of lung (HCC) Take 1 (one) tablet by mouth every 12 hours 60 tablet 5 Active oxyCODONE, immediate release, (Roxicodone) 10 MG tabletIndicatio ns:Chronic Pain Take 1 (one) tablet by mouth every 6 hours as needed for Pain Reasons: Chronic Pain 60 tablet 5 Active omeprazole (PriLOSEC) 40 MG capsule TAKE 1 CAPSULE BY MOUTH ONCE DAILY BEFORE BREAKFAST 90 capsule 4 08/20/19 25 Discontinued morphine CR 12hr (MS Contin) 15 MG tabletIndicatio ns:Cancer associated pain,Malignant neoplasm of lung, unspecified laterality, unspecified part of lung (HCC) Take 1 (one) tablet by mouth every 12 hours 60 tablet 5 08/20/19 25 Discontinued(Re order) oxyCODONE, immediate release, (Roxicodone) 10 MG tabletIndicatio ns:Chronic Pain Take 1 (one) tablet by mouth every 6 hours as needed for Pain Reasons: Chronic Pain 120 tablet 5 08/20/19 25 Discontinued(Re order) oxyCODONE, immediate release, (Roxicodone) 10 MG tabletIndicatio ns:Chronic Pain Take 1 (one) tablet by mouth every 6 hours as needed for Pain Reasons: Chronic Pain 120 tablet 5 09/16/19 25 Discontinued(Re order) morphine CR 12hr (MS Contin) 15 MG tabletIndicatio ns:Cancer associated pain,Malignant neoplasm of lung, unspecified laterality, unspecified part of lung (HCC) Take 1 (one) tablet by mouth every 12 hours 60 tablet 5 08/26/19 25 Discontinued(Re order) Active Problems Problem Noted Date Diagnosed Date Acute cough 07/04/2024 Congestion of nasal sinus 07/04/2024 Smoking 07/04/2024 Encounter for immunotherapy 07/04/2024 Glaucoma 01/15/2024 Chronic pulmonary embolism without acute cor pul monale 06/12/2023 Overview (06/12/2023): CT of the chest abdominal pelvis with contrast August 14, 2022 Impression: 1.Left descending pulmonary artery shows focal luminal filling defect with calcified and noncalcified thrombus without significant distal obstruction. 2.Stable appearance of bilateral posttreatment changes. No evidence of disease recurrence. 3.No evidence of metastatic disease in the chest, abdomen or pelvis. Tibial plateau fracture, left, closed, initial e ncounter 03/09/2023 retirement (current) use of anticoagulants 2022 Personal history of nicotine dependence 07/02/19 23 Achilles tendinitis of right lower extremity 08/2021 Gastroesophageal reflux disease 01/27/2020 Metastatic cancer to brain 06/19/2019 Drug-induced constipation 01/07/2019 Prediabetes 01/07/2019 Advanced care planning/counseling discussion Overview (04/29/2018): Patient given DPOA forms on 04/29/18. Dysphagia 10/26/2017 Cancer associated pain 10/15/2017 Overview (04/29/2018): Pain contract signed 04/29/18. Malignant neoplasm of lung 09/25/2017 Cancer Staging:Pathologic:Stage SHAGUFTA(cT1, cN2, pM1b) - Signed by Delonte Rosario MD on 09/14/2023 Overview (06/12/2023): Follows [facility] Dr. Rosario - Diagnosed in 06/15 - Had an initial craniotomy and systemic combination chemotherapy. - Recurrent disease November 2018 with PD-L1 10%. Has been on the single agent Keytruda since. - On CT scan, no evidence of progressive disease at that. However PET/CT scan showing the new nodes at the mediastinal and left hilar are still hypermetabolic with SUV 6.6. There was no PET/CT scan for comparison which makes it difficult to distinguish between malignancy vs inflammation - Follows with [facility] for brain mets. Negative Brain MRI 05/31. Continue follow up. - Labs obtained today, CBC and CMP stable. - Treatment toxicity assessment completed, no new or worsening AE's noted. She continues to tolerate immunotherapy well. Follows [facility] Dr. Hollingsworth Right upper lung malignancy, stage T1N2M1, with recurrence growth of the right upper lung nodule status post 6000 cGy in 3 fractions ending on 04/04/2018 Right cerebellar surgical bed after craniotomy status post 2000 cGy in 1 fractions ending on 07/23/2015 Recurrent right cerebellar lesion status post 2400 cGy in 1 fraction ending on December 03, 2018 Progressive left upper lung adenocarcinoma stage T1, status post 6000 cGy in 3 fractions ending on December 06, 2018 Combination chemotherapy with carboplatin, Alimta and Avastin followed by Alimta and Avastin maintenance. Switch to single agent Keytruda 2018 and remains on chronic immunotherapy for Stage IV [id number] adenocarcinoma lung Recurrent major depressive disorder, in full rem ission 06/15/2016 Trigger finger 06/15/2016 Overview (10/24/2017): Overview: To R ring and L long fingers, showed good improvement with local steroid injections. H/O: hysterectomy 06/02/2015 Resolved Problems Problem Noted Date Diagnosed Date Resolved Date Glaucoma suspect of left eye 04/04/2022 01/15/2024 Blurry vision 04/04/2022 01/15/2024 Hyperlipidemia 01/27/2020 01/15/2024 Closed fracture of right wrist 01/27/2020 01/15/2024 Dizziness 01/07/2019 01/15/2024 Bilateral hearing loss 01/07/201901/14 Pneumothorax after biopsy 11/29/2018 Pneumothorax, postprocedural 02/28/2018 07/04/2019 Carpal tunnel syndrome of right wrist 07/13/2017 01/15/2024 Anxiety 06/15/2016 03/19/2020 Hypertension 06/15/2016 01/15/2024 Panic attack 06/15/2016 03/19/2020 Encounters Date Type Department Care Team Description 09/18/2024 2:20 PM CDT Office Visit [facility] - Family Medicine [address] [facility] [place] [address] Chapis Isabel MD Chronic tension-type headache, intractable (Primary Dx) 09/18/2024 Travel 09/17/2024 Refill [facility] - Hematology/Oncolog y [address] [place] [address] Delonte Rosario MD Refill Request 09/15/2024 Refill [facility] - Hematology/Oncolog y [address] [place] [address] Britton Lopez, DESPATCHING AND RECEIVING CLERK REFILL 09/09/2024 Travel 08/26/2024 Refill [facility] - Hematology/Oncolog y [address] [place] [address] Britton Lopez, DESPATCHING AND RECEIVING CLERK REFILL 08/26/2024 [facility]ill [facility]colog y [address] [place] [address] Delonte Rosario MD Refill Request 08/20/2024 Refill [facility] - Hematology/Oncolog y [address] [place] [address] Silvio Stuart MD MEDICATION REFILL 08/20/2024 Refill [facility] - Hematology/Oncolog y [address] [place] [address] Delonte Rosario MD Refill Request 08/15/2024 9:40 AM CHEMICAL PROCESSING SUPERVISOR Office Visit [facility] - Hematology/Oncolog y [address] [place] [address] Miladys Peralta, JAY-PRINTING MECHANIST Malignant neoplasm of left lung, unspecified part of lung (Primary Dx); Encounter for immunotherapy; Acute cough; Congestion of nasal sinus; Cancer associated pain 08/15/2024 9:30 AM CHEMICAL PROCESSING SUPERVISOR - 08/15/2024 11:59 PM CHEMICAL PROCESSING SUPERVISOR Hospital Encounter [facility] [address] [place] [address] Paulo Conte MD Discharge Disposition: Home or Self Care 08/15/2024 Travel 08/13/2024 Refill [facility] - Hematology/Oncolog y [address] [place] [phone] Delonte Rosario MD Refill Request 08/04/2024 10:30 AM CHEMICAL PROCESSING SUPERVISOR - 08/04/2024 11:59 PM CHEMICAL PROCESSING SUPERVISOR Hospital Encounter [facility] [address] [place] [address] Colton Hollingsworth MD Discharge Disposition: Home or Self Care 07/29/2024 Refill [facility] - Hematology/Oncolog y [address] [place] [phone] Delonte Rosario MD Refill Request 07/23/2024 Refill [facility] - Hematology/Oncolog y [address] [place] [phone] Britton Lopez, DESPATCHING AND RECEIVING CLERK REFILL 07/16/2024 Refill [facility] - Hematology/Oncolog y [address] [place] [phone] Delonte Rosario MD Refill Request 07/09/2024 Telephone [facility] - Hematology/Oncolog y [address] [place] [phone] Miladys Peralta, PEDIATRIC SPORTS MEDICINE SPECIALIST-PRINTING MECHANIST Follow-up (Patient had requested phone call after imaging. ) 07/08/2024 1:30 PM CHEMICAL PROCESSING SUPERVISOR - 07/08/2024 11:59 PM CHEMICAL PROCESSING SUPERVISOR Hospital Encounter [facility] [address] [place] [address] Delonte Rosario MD Discharge Disposition: Home or Self Care 07/04/2024 10:20 AM CHEMICAL PROCESSING SUPERVISOR Office Visit [facility] - Hematology/Oncolog y [address] [place] [address] Paulo Conte MD Emrich, Miladys Hauser, PEDIATRIC SPORTS MEDICINE SPECIALIST-PRINTING MECHANIST Acute cough (Primary Dx); Malignant neoplasm of lung, unspecified laterality, unspecified part of lung; Congestion of nasal sinus; Smoking; Encounter for immunotherapy 07/04/2024 9:30 AM CHEMICAL PROCESSING SUPERVISOR - 07/04/2024 11:59 PM CHEMICAL PROCESSING SUPERVISOR Hospital Encounter [facility] [address] [place] [address] Paulo oCnte MD Discharge Disposition: Home or Self Care 07/04/2024 Orders Only [facility]colog y [address] [place] [address] Delonte Rosario MD 07/04/2024 Travel 06/28/2024 Refill [facility] - Hematology/Oncolog y [address] [place] [address] Silvio Stuart MD Refill Request 06/24/2024 Refill [facility]Oncolog y [address] [place] [address] Delonte Rosario MD Refill Request 06/23/2024 Refill [facility]Oncolog y [address] [place] [address] Britton Lopez, DESPATCHING AND RECEIVING CLERK REFILL from Last 3 Months Immunizations Name Administration Dates Next Due COVID MODERNA 12+ yr 50mcg/0.5mL 03/21/2024 Covid Moderna primary monovalent 12+ yr 0.5mL ,10/30/2020 FLU VACCINE TRI IIV3 SPLIT PF IM (FLUVIRIN) 06/01 HEP B VACCINE ADOL/ADULT 2 DOSE 11/21/2022 HEP B VACCINE, ADULT 3 DOSE 06/12/2022 INFLUENZA VACCINE, HIGH-DOSE , QUADR. (FLUZONE HIGH-DOSE QUADRIVALENT; 65Y+), 0.7 ML (HD-IIV4) 04/07/2019 INFLUENZA VACCINE, HIGH-DOSE , TRIV. (FLUZONE HIGH-DOSE TRIVALENT; 65Y+) (HD-IIV3) 04/07/2019 INFLUENZA VACCINE, TRIV. (FL UZONE; FLULAVAL; FLUARIX; AFLURIA TRIVALENT; 6MO+), 0.5 ML (IIV3) 03/21/2024 Influenza Intradermal 05/14/2017,06/15/2016 PNEUMOCOCCAL PPSV23 06/15/2016 TDAP (7yrs+) 10/14/2014 Zoster Hzv Vacc Recombinant Inj Im 04/25/2024, iNFLUENZA VACCINE, RECOM-ESPANA, QUADR. (FLUBLOCK QUADRIVALENT; 18Y+) (RIV4) 06/12/2022 Family History Medical History Relation Name Comments Cancer - Breast Maternal Aunt Cancer - Breast Maternal Cousin Diabetes - Type 2 Maternal Grandmother Hypertension Mother Cancer - Breast Paternal Aunt Relation Name Status Comments Maternal Aunt Maternal Cousin Maternal Grandmother Mother Paternal Aunt Social History Tobacco Use Types Packs/Day Years Used Date Smoking Tobacco: Former Cigarettes Q uit: 2014 Smokeless Tobacco: Never Tobacco Cessation:Counseling Given: Not Answered Alcohol Use Standard Drinks/Week Comments Yes 1 (1 standard drink = 0.6 oz pur e alcohol) AUDIT-C Answer Date Recorded Frequency of Alcohol Consumption Not on file 03/15/2023 Q2: How many drinks containi ng alcohol do you have on a typical day when you are drinking? Patient does not drink Frequency of Binge Drinking Not on file 03/02 PHQ-2 Answer Date Recorded Patient Health Questionnaire-2 Score 4 09/18/2024 Sex and Gender Information Value Date Recorded Sex Assigned at Not on file Gender Identity Not on file Sexual Orientation Not on file Last Filed Vital Signs Vital Sign Reading Time Taken Comments Blood Pressure 123/82 09/18/2024 2:41 PM CDT Pulse 106 09/18/2024 2:41 PM CDT Temperature 35.8 C (96.5 F) 08/15/2024 9:56 AM CHEMICAL PROCESSING SUPERVISOR Respiratory Rate 18 08/15/2024 9:56 AM CHEMICAL PROCESSING SUPERVISOR Oxygen Saturation 98% 09/18/2024 2:41 PM CDT Inhaled Oxygen Concentration - - Weight 72.1 kg (159 lb) 09/18/2024 2:41 PM CDT Height 154.9 cm (5' 1 ) 09/18/2024 2:41 PM CDT Body Mass Index 30.04 09/18/2024 2:41 PM CDT Plan of Treatment Upcoming Encounters Date Type Department Care Team (Late st Contact Info) Description 09/25/2024 10:00 AM CDT Hospital Encounter [facility] [address] [place] [address] [place] [address] [facility] [address] [place] [phone] 09/25/2024 10:40 AM CDT Office Visit [facility] - Hematology/Oncology [address] [place] [phone] Delonte Rosario MD [address] [place] [phone] 10/07/2024 3:00 PM CDT Office Visit [facility] - ENT [address] [place] [phone] Lalit Jackson MD [address] [place] [address] [place] [address] 10/07/2024 3:30 PM CDT Testing Visit [facility] - ENT [address] [place] [phone] Ronaldo Cavanaugh, PhD [address] [place] [address] [address] [place] [address] 11/06/2024 10:00 AM CDT Appointment [facility] [address] [place] [address] [place] [address] [place] [address] 11/06/2024 2:40 PM CDT Office Visit [facility] Medicine [facility] [facility] [place] [phone] Chapis Isabel MD [address] [place] [address] [place] [phone] 01/06/2025 12:30 PM CDT Appointment [facility] [address] [place] [phone] Colton Hollingsworth MD [address] [place] [phone] 01/06/2025 1:30 PM CDT Appointment [facility] [address] [place] [phone] Colton Hollingsworth MD [facility] [place], [place] [phone] 01/12/2025 9:00 AM CDT Appointment [facility] [address] [place], [place] [phone] Colton Hollingsworth MD [address] [place] [address] Health Maintenance Due Date Last Done Comments COLOGUARD (AGES 45-75) - COLON CA SCREENING 1968 COLON MONITORING 1968 COLONOSCOPY - COLON CA SCREENING 1968 CT COLONOGRAPHY - COLON CA SCREENING 1968 Colorectal Cancer Screening 1968 FIT - COLON CA SCREENING 1968 FLEX SIG - COLON CA SCREENING 1968 PNEUMOCOCCAL VACCINE 50+ (2 of 2 - PCV) 06/15/2017 06/15/2016 HEPATITIS B VACCINE (3 of 3 - 19+ 3-dose series) 01/16/2023 11/21/2022, 06/12/2022 MEDICARE AWV 12 MONTHS 06/12/2023 06/12/2022, 10/12/2020 DEPRESSION SCREENING 07/02/2024 01/15/2024, 05/04/2023, 05/04/2023, Additional history exists LIPID TESTING 07/08/2024 07/08/2019, 08/02, 06/21/2016 DTAP/TDAP/TD VACCINES (2 - Td or Tdap) 10/14/2024 10/14/2014 MAMMOGRAM 02/21/2026 02/22/2024, 10/31, 11/10/2021, Additional history exists SCREENING FOR DIABETES 08/15/2027 , 07/04/2024, 05/23/2024, Additional history exists HIV SCREENING Completed 01/07/2019 HEPATITIS C SCREENING Completed 10/12/2020 COVID-19 VACCINE Completed 03/21/2024, , 10/30/2020 INFLUENZA VACCINE Completed 03/21/2024, , 04/07/2019, Additional history exists ZOSTER VACCINE Completed 04/25/2024, 02/21/2024 HIB VACCINE Aged Out No longer eligi ble based on patient's age to complete this topic HPV VACCINE Aged Out No longer eligi ble based on patient's age to complete this topic MENINGOCOCCAL (Group B) VACCINE SHARED DECISION-MAKING Aged Out No longer eligible based on patient's age to complete this topic MENINGOCOCCAL GROUPS A/C/Y/W VACCINE Aged Out No longer eligible based on patient's age to complete this topic PAP with HPV Discontinued Goals Goal Patient Goal Type Associated Problems Recent Progress Patient-Stated? Author Depression Lifestyle No Gayle Bellamy, PEDIATRIC SPORTS MEDICINE SPECIALIST-PRINTING MECHANIST Medical Devices Implanted Type Area Officer Lieutenant Device Identifier Shelf Expiration Date Model / Serial / Lot Point Coil Implanted:Qty: 3 on 02/28/2018 at [facility] Right: Lung [id number] / / Pointcoil Implanted:Qty: 3 on 11/21/2018 at [facility] [id number] / / Description:3 FIDUCIALS IMPL ANTED IN UPPER LOBE OF LEFT LUNG Screw 4.7mm 60mm Ft Evos Strl Osteopenia Implanted:Qty: 1 on 03/15/2023 by Colton Espinoza MD at [facility] Left: [employer] [id number] / / Plate Implanted:Qty: 1 on 03/15/2023 by Colton Espinoza MD at [facility] Left: [employer] Trauma [id number] / / Screw 3.5mm 28mm Slf-Tap Cortx Evos Strl Implanted:Qty: 2 on 03/15/2023 by Colton Espinoza MD at [facility] Left: [employer] [id number] / / Screw 3.5mm 65mm Slf-Tap Cortx Evos Strl Implanted:Qty: 1 on 03/15/2023 by Colton Espinoza MD at [facility] Left: [employer] [id number] / / Screw 3.5mm 30mm Cortx Slf-Tap Evos Strl Implanted:Qty: 1 on 03/15/2023 by Colton Espinoza MD at [facility] Left: [employer] [id number] / / Screw 3.5mm 65mm Slf-Tap Lck Evos Strl Implanted:Qty: 1 on 03/15/2023 by Colton Espinoza MD at [facility] Left: [employer] [id number] / / Screw 3.5mm 60mm Slf-Tap Lck Evos Strl Implanted:Qty: 1 on 03/15/2023 by Colton Espinoza MD at [facility] Left: [employer] [id number] / / Screw 4.7mm 36mm Ft Evos Strl Osteopenia Implanted:Qty: 1 on 03/15/2023 by Colton Espinoza MD at [facility] Left: [employer] [id number] / / Procedures Procedure Name Priority Date/Time Associated Diagnosis Comments COMPREHENSIVE METABOLIC PANEL STAT 08/15/2024 9:47 AM CHEMICAL PROCESSING SUPERVISOR Malignant neoplasm of lung, unspecified laterality, unspecified part of lung Metastatic cancer to brain CBC W AUTO DIFFERENTIAL STAT 08/15/2024 9:47 AM CHEMICAL PROCESSING SUPERVISOR Malignant neoplasm of lung, unspecified laterality, unspecified part of lung Metastatic cancer to brain TSH REFLEX FREE T4 STAT 08/15/2024 9: 47 AM CHEMICAL PROCESSING SUPERVISOR Malignant neoplasm of lung, unspecified laterality, unspecified part of lung Metastatic cancer to brain CT CHEST ABDOMEN PELVIS W CONT Routine 07/08/2024 2:18 PM CHEMICAL PROCESSING SUPERVISOR Malignant neoplasm of lung, unspecified laterality, unspecified part of lung COMPREHENSIVE METABOLIC PANEL STAT 07/04/2024 11:02 AM CHEMICAL PROCESSING SUPERVISOR Non-small cell cancer of left lung Metastatic cancer to brain CBC W AUTO DIFFERENTIAL STAT 07/04/2024 11:02 AM CHEMICAL PROCESSING SUPERVISOR Non-small cell cancer of left lung Metastatic cancer to brain TSH REFLEX FREE T4 STAT 07/04/2024 11 :02 AM CHEMICAL PROCESSING SUPERVISOR Non-small cell cancer of left lung Metastatic cancer to brain MAMMO BILAT SCREENING W BANDAR Routine 02/22/2024 12:10 PM CDT Screening mammogram for breast cancer HEPATITIS C ANTIBODY Routine 10/12/2020 3:27 PM CDT Need for hepatitis C screening test LIPID PROFILE Routine 07/08/2019 2:50 PM CHEMICAL PROCESSING SUPERVISOR Overweight (BMI 25.0-29.9) HIV-1 HIV-2 ANTIGEN/ANTIBODY Routine 01/07/2019 1:49 PM CDT Healthcare maintenance from Last 3 Months or Most Recently Relevant to Health Maintenance Results * TSH REFLEX FREE T4 (08/15/2024 9:47 AM CHEMICAL PROCESSING SUPERVISOR) Only the most recent of2 resultswithin the time period is included. TSH 1.462 0.350 - 4.940 uIU/mL 08/15/2024 10:47 AM [facility] Blood BLOOD SPECIMEN / Unknown Venipuncture / Unknown 08/15/2024 9:47 AM CHEMICAL PROCESSING SUPERVISOR 08/15/2024 10:08 AM CHEMICAL PROCESSING SUPERVISOR Delonte Rosario MD LAB - CHEMISTRY ORDERABLES [facility] [address] [place] [phone], [facility] [phone] * CBC W AUTO DIFFERENTIAL (08/15/2024 9:47 AM [facility]) Only the most recent of2 resultswithin the time period is included. WBC 6.9 4.0 - 10.7 x10E9/L 08/15/2024 10:06 AM [facility] RBC Count 4.70 3.90 - 5.20 x10E12/L 08/15/2024 10:06 AM [facility] Hemoglobin 13.1 11.9 - 15.8 g/dL 08/15/2024 10:06 AM [facility] Hematocrit 39.2 34.8 - 46.1 % 08/15/2024 10:06 AM [facility] MCV 83.4 80.0 - 98.0 fL 08/15/2024 10:06 AM [facility] MCH 27.9 26.7 - 33.6 pg 08/15/2024 10:06 AM [facility] MCHC 33.4 31.7 - 36.3 g/dL 08/15/2024 10:06 AM [facility] RDW-CV 13.9 11.3 - 14.8 % 08/15/2024 10:06 AM [facility] Platelet Count 249 150 - 420 x10E9/L 08/15/2024 10:06 AM [facility] MPV 9.7 7.8 - 11.4 fL 08/15/2024 10:06 AM [facility] Preliminary Absolute Neutrophil 4.64 1.60 - 7.50 x10E9/L 08/15/2024 10:06 AM [facility] Neutrophil % 67.4 41.0 - 74.0 % 08/15/2024 10:06 AM [facility] Lymphocyte % 24.5 17.0 - 47.0 % 08/15/2024 10:06 AM [facility] Monocyte % 5.2 3.0 - 11.0 % 08/15/2024 10:06 AM [facility] Eosinophil % 2.5 0.0 - 7.0 % 08/15/2024 10:06 AM [facility] Basophil % 0.1 0.0 - 1.6 % 08/15/2024 10:06 AM [facility] Immature Granulocytes % 0.3 0.0 - 1.0 % 08/15/2024 10:06 AM [facility] Neutrophil Absolute 4.64 1.60 - 7.50 x10E9/L 08/15/2024 10:06 AM [facility] Lymphocyte Absolute 1.69 1.00 - 4.40 x10E9/L 08/15/2024 10:06 AM [facility] Monocyte Absolute 0.36 0.15 - 1.00 x10E9/L 08/15/2024 10:06 AM [facility] Eosinophil Absolute 0.17 0.00 - 0.60 x10E9/L 08/15/2024 10:06 AM [facility] Basophil Absolute 0.01 0.00 - 0.13 x10E9/L 08/15/2024 10:06 AM [facility] Blood BLOOD SPECIMEN / Unknown Venipuncture / Unknown 08/15/2024 9:47 AM [facility] 08/15/2024 10:00 AM [facility] Delonte Rosario MD LAB - HEMATOLOGY ORDERABLES [facility] [address] [place] [address], [facility] [phone] * (ABNORMAL) COMPREHENSIVE METABOLIC PANEL (08/15/2024 9:47 AM [facility]) Only the most recent of2 resultswithin the time period is included. BUN 12 7 - 26 mg/dL 08/15/2024 10:29 AM [facility] Creatinine 0.75 0.56 - 0.96 mg/dL 08/15/2024 10:29 AM [facility] Sodium 138 136 - 145 mmol/L 08/15/2024 10:29 AM [facility] Potassium 4.1 3.5 - 4.5 mmol/L 08/15/2024 10:29 AM [facility] Chloride 108(H) 98 - 107 mmol/L 08/15/2024 10:29 AM [facility] CO2 21(L) 22 - 29 mmol/L 08/15/2024 10:29 AM [facility] Glucose 127(H) 70 - 99 mg/dL 08/15/2024 10:29 AM [facility] Calcium 9.1 8.4 - 10.2 mg/dL 08/15/2024 10:29 AM [facility] Protein Total 8.1 6.0 - 8.3 g/dL 08/15/2024 10:29 AM [facility] Albumin 4.0 3.4 - 5.0 g/dL 08/15/2024 10:29 AM [facility] Bilirubin Total 0.3 0.2 - 1.2 mg/dL 08/15/2024 10:29 AM [facility] Alkaline Phosphatase 88 40 - 150 U/L 08/15/2024 10:29 AM [facility] ALT 9 5 - 55 U/L 08/15/2024 10:29 AM [facility] AST 12 5 - 34 U/L 08/15/2024 10:29 AM [facility] Anion Gap 9 6 - 16 08/15/2024 10:29 AM [facility] BUN/Creatinine Ratio 16 7 - 23 08/15/2024 10:29 AM [facility] Osmolality Calculated 287 275 - 295 mOsm/kg 08/15/2024 10:29 AM [facility] Albumin/Globulin Ratio 1.0(L) 1.1 - 2.3 08/15/2024 10:29 AM [facility] eGFR by CKD-EPI >90 >=90 mL/min/1.7 3 m2 08/15/2024 10:29 AM [facility] Blood BLOOD SPECIMEN / Unknown Venipuncture / Unknown 08/15/2024 9:47 AM CHEMICAL PROCESSING SUPERVISOR 08/15/2024 10:08 AM CHEMICAL PROCESSING SUPERVISOR Delonte Rosario MD LAB - CHEMISTRY ORDERABLES [facility] [address] [place] [phone], [facility] [phone] * CT THORAX ABDOMEN PELVIS W CONT (07/08/2024 2:18 PM CHEMICAL PROCESSING SUPERVISOR) Anatomical Region Laterality Modality Chest, Abdomen, Pelvis Computed Tomography 07/08/2024 3:10 PM CHEMICAL PROCESSING SUPERVISOR Impressions 07/08/2024 3:19 PM CHEMICAL PROCESSING SUPERVISOR IMPRESSION: 1. Emphysema in both lungs with bilateral areas of consolidation with architectural distortion, consistent with known lung malignancy and treatment change. No CT evidence of disease progression in the lungs. 2. No CT evidence of metastatic disease in the chest, abdomen or pelvis. > Interpreting Provider: Jesus Gonzáles MD on 07/08/2024 3:19 PM Narrative 07/08/2024 3:19 PM CHEMICAL PROCESSING SUPERVISOR PROCEDURE: CT CHEST ABDOMEN PELVIS W CONT DATE/TIME OF EXAM: 07/08/2024 2:19 PM CLINICAL INFORMATION: None relevant/not provided if blank. Indication: C34.90: Malignant neoplasm of lung, unspecified laterality, unspecified part of lung (HCC) Additional History: COMPARISON: 11/20/2023. PET/CT dated 03/14/2024 was reviewed. TECHNIQUE: CT of the chest, abdomen and pelvis was performed following intravenous contrast utilizing standard protocol. CT dose reduction technique was used, including Automated Exposure Control. CONTRAST: IOPAMIDOL 76 % IV SOLN:100 mL FINDINGS: There is been no substantial change in a left upper lobe mass with 2 fiducial markers seen on series 4 image 21 measuring 2.8 cm with spiculations. Additional linear consolidation and architectural distortion seen in the right anterior upper lobe on series 4 image 34 with multiple radiopaque treatment material, also overall similar to the prior exam. There is advanced emphysema in both lungs. There are multiple sub-3 mm nodules scattered throughout both lungs, similar to the prior exam. No new pulmonary nodule or evidence of disease progression. No pleural effusion or pneumothorax. The heart is normal in size. There is no pericardial effusion. The thoracic aorta is normal in caliber. The visualized thyroid gland is normal. There is no mediastinal lymphadenopathy. Abdomen and pelvis: The liver is normal without focal liver lesion or intrahepatic bile duct dilatation. The gallbladder is normal. The spleen is normal. The pancreas is normal. The adrenal glands are normal. Kidneys enhance symmetrically with no hydronephrosis. The urinary bladder is normal. Uterus is normal. There is no adnexal mass. The small and large bowel are normal in caliber without bowel obstruction. There is no free intraperitoneal gas or free fluid in the pelvis. Appendix is normal. Abdominal aorta is normal in caliber with calcifications. The portal vein is patent. No suspicious osseous lytic or blastic lesion on bone windows. Multiple level spine degenerative disc disease. Procedure Note Jesus Gonzáles MD - 07/08/2024 PROCEDURE: CT CHEST ABDOMEN PELVIS W CONT DATE/TIME OF EXAM: 07/08/2024 2:19 PM CLINICAL INFORMATION: None relevant/not provided if blank. Indication: C34.90: Malignant neoplasm of lung, unspecified laterality, unspecified part of lung (HCC) Additional History: COMPARISON: 11/20/2023. PET/CT dated 03/14/2024 was reviewed. TECHNIQUE: CT of the chest, abdomen and pelvis was performed following intravenous contrast utilizing standard protocol. CT dose reduction technique was used, including Automated ExposureControl. CONTRAST: IOPAMIDOL 76 % IV SOLN:100 mL FINDINGS: There is been no substantial change in a left upper lobe mass with 2 fiducial markers seen on series 4 image 21 measuring 2.8 cm with spiculations. Additional linear consolidation and architecturaldistortion seen in the right anterior upper lobe on series 4 image 34 with multiple radiopaque treatment material, also overall similar to the prior exam. There is advanced emphysema in both lungs. There are multiple sub-3 mm nodules scattered throughout both lungs, similar to the prior exam. Nonew pulmonary nodule or evidence of disease progression. No pleural effusion or pneumothorax. The heart is normal in size. There is no pericardial effusion. Thethoracic aorta is normal in caliber. The visualized thyroid gland is normal. There is no mediastinal lymphadenopathy. Abdomen and pelvis: The liver is normal without focal liver lesion or intrahepatic bile duct dilatation. The gallbladder is normal. The spleen is normal. Thepancreas is normal. The adrenal glands are normal. Kidneys enhance symmetrically with no hydronephrosis. The urinary bladder is normal. Uterus is normal. There is no adnexalmass. The small and large bowel are normal in caliber without bowelobstruction. There is no free intraperitoneal gas or free fluid in the pelvis.Appendix is normal. Abdominal aorta is normal in caliber with calcifications. The portalvein is patent. No suspicious osseous lytic or blastic lesion on bone windows. Multiple level spine degenerative disc disease. IMPRESSION: 1. Emphysema in both lungs with bilateral areas of consolidation with architectural distortion, consistent with known lung malignancy and treatment change. No CT evidence of disease progression in the lungs. 2. No CT evidence of metastatic disease in the chest, abdomen or pelvis. > Interpreting Provider: Jesus Gonzáles MD on 07/08/2024 3:19 PM Delonte Rosario MD CT ORDERABLES * Mammo Bilat Screening W [place] (02/22/2024 12:10 PM CDT) Anatomical Region Laterality Modality Breast Bilateral Mammography 02/22/2024 1:03 PM CDT Impressions 02/22/2024 1:09 PM CDT : No mammographic evidence of malignancy. RECOMMENDATION: Screening mammography in one year, pending no interval breast concerns. Patient will receive the examination results by lay letter. OVERALL ASSESSMENT: BI-RADS CATEGORY 1: NEGATIVE. > Interpreting Provider: Jojo Vargas MD on 02/22/2024 1:09 PM Narrative 02/22/2024 1:09 PM CDT EXAMINATIONS: BILATERAL DIGITAL SCREENING MAMMOGRAM AND BILATERAL BREAST TOMOSYNTHESIS LOCATION: [facility] EXAM DATE: 02/22/2024 HISTORY: Screening. RISK ASSESSMENT CALCULATION: Patient completed a breast cancer risk assessment during her appointment 02/22/2024. Based upon the information she provided and her mammographic breast density, her lifetime risk of developing breast cancer is 9 % (Average Risk <15%; Intermediate / Moderate Risk 15-19; High Risk > 20%). Risk assessment based upon the Tyrer-Cuzick v8 model. COMPARISON: Comparison is made with relevant prior imaging in PACS dating back to 2017. TECHNIQUE: Tomosynthesis (3D) and reconstructed synthetic 2-D images acquired and reviewed in the bilateral craniocaudal and mediolateral oblique projections. A total of images obtained. Transpara AI was utilized in the interpretation. BREAST PARENCHYMAL COMPOSITION: Category B: There are scattered areas of fibroglandular density. FINDINGS: There are no suspicious findings or evidence of malignancy on mammography. Benign postsurgical changes in the right breast. There is no significant change from the prior. Misa Jay PEDIATRIC SPORTS MEDICINE SPECIALIST-PRINTING MECHANIST MAMMO ORDERABLES * HEPATITIS C ANTIBODY (10/12/2020 3:27 PM CDT) Hepatitis C Antibody Non-react juan a Non-reac tive 10/12/2020 4:55 PM CDT [facility] Comment:Hepatitis C Antibody screen indicates no serologic evidence of past or current infection with Hepatitis C Virus. Patients with unexplained liver disease who are immunocompromised or suspected of having acute Hepatitis C infection may benefit from Nucleic Acid Test (ALCIRA) for Hepatitis C Viral RNA to confirm Hepatitis C status. Blood BLOOD SPECIMEN / Unknown Lab Venipuncture / Unknown 10/12/2020 3:27 PM CDT 10/12/2020 4:11 PM CDT Khalif Ocasio MD LAB - CHEMISTRY O RDERABLES [facility] [address] [place] [address], [facility] [phone] * LIPID PROFILE (07/08/2019 2:50 PM CHEMICAL PROCESSING SUPERVISOR) Cholesterol Total 169 <200 mg/dL 07/08/2019 3:53 PM [facility] HDL 55 >40 mg/dL 07/08/2019 3:53 PM [facility] Comment: ATP III Classification of HDL Cholesterol: <40 mg/dL: Considered a major risk factor. >60 mg/dL: Considered a negative risk factor. LDL Calculated 99 <100 mg/dL 07/08/2019 3:53 PM [facility] Comment: ATP III Classification of LDL Cholesterol: <100 mg/dL: Optimal 100 - 129 mg/dL: Near Optimal/Above Optimal 130 - 159 mg/dL: Borderline High 160 - 189 mg/dL: High >190 mg/dL: Very High Triglycerides 73 <150 mg/dL 07/08/2019 3:53 PM CHEMICAL PROCESSING SUPERVISOR [facility] Comment: ATP III Classification of Triglycerides: <150 mg/dL: Normal 150 - 199 mg/dL: Borderline High 200 - 400 mg/dL: High >500 mg/dL: Very High Blood BLOOD SPECIMEN / Unknown Lab Venipuncture / Unknown 07/08/2019 2:50 PM CHEMICAL PROCESSING SUPERVISOR 07/08/2019 3:11 PM CHEMICAL PROCESSING SUPERVISOR Gayle Bellamy APRN-PRINTING MECHANIST LAB - CHEMISTRY ORDERABLES [address] [phone] * HIV-1 HIV-2 ANTIGEN/ANTIBODY (01/07/2019 1:49 PM CDT) HIV Antigen/Antibod y 1 & 2 Non-reacti ve Non-react juan a 01/07/2019 3:31 PM CDT [facility] Comment: Neither HIV-1 p24 Antigen nor HIV-1/HIV-2 Antibodies are detected. Blood BLOOD SPECIMEN / Unknown Lab Venipuncture / Unknown 01/07/2019 1:49 PM CDT 01/07/2019 2:38 PM CDT Gayle Bellamy APRN-PRINTING MECHANIST LAB - HEMATOLOGY ORDERABLES Performing Organization Address City/[facility]/ZIP Co de Phone Number [address] [phone] from Last 3 Months or Most Recently Relevant to Health Maintenance Advance Directives Documents on File Type Date Recorded Patient Box Tender Expl anation Adv Directive/Living Will/POA 12/26/2018 11:30 AM POWER OF AIRCRAFT CHARTER DISPATCHER * Full Code (Latest Code Status on File) Date Activated Date Inactivated Comments 03/15/2023 11:33 AM 03/17/2023 12:54 PM * Full Code Date Activated Date Inactivated Comments 11/29/2018 6:49 PM 12/01/2018 3:17 PM Care Teams Promotions Representative Relationship Specialty Start Date End Date Chapis Isabel MD [address] [phone] PCP - General 03/08/24
--- OUTSIDE RECORDS SUMMARY | 2024-09-18 21:12 | XMS_ITS | Encounter Summary ---
Author Organization [facility] Address [address] [facility] [place] [address] Care Team Providers Care Hand Printed Circuit Board Assembler Name Role Phone Hunter Treadwell MD Primary Care Provider Khalif Ocasio MD Primary Care Provider [phone] Marci Jay DO Unavailable [phone] Gayle Bellamy TRAFFIC CONTROL FLAGGER-ATTRACTION ATTENDANT Primary Care Provider + George GARCIA MD, Francis G Primary Care Provider [phone] Gayle Bellamy TRAFFIC CONTROL FLAGGER-ATTRACTION ATTENDANT Primary Care Provider + Lisandra Jay MD Primary Care Provider George GARCIA MD, Francis G Primary Care Provider [phone] Eva Wen MD Unavailable Elizabeth Chao RN Unavailable Unavailabl Delonte Locke MD Unavailable [phone] Ana Car TRAFFIC CONTROL FLAGGER-ATTRACTION ATTENDANT Unavailable [phone] Chapis Isabel MD Primary Care Provider Chapis Isabel MD Primary Care Provider Reason for Visit * Reason Onset Date Comments Tube Feed Management 01/21/2019 Follow-up 01/23/2019 Encounter Details Date Type Department Care Team (Late st Contact Info) Description 01/21/2019 Telephone [facility] General Internal Medicine [address] [facility] [address] [place] [address] Hunter Treadwell MD [address] [place] [address] Tube Feed Management; Follow-up Social History Tobacco Use Types Packs/Day Years [...] No 12/01/2018 documented as of this encounter Miscellaneous Notes * Telephone Encounter - Gayle Zepeda APRN-CNP - 01/23/2019 9:08 AM CDT Can we please find out who send that request to Chrissy? Thanks, CARLOS Quiñones * Telephone Encounter - Erich Jaramillo - 01/23/2019 9:04 AM CDT Contact made with the pt to confirm that she is not on tube feedings, pt confirmed that she is not currently nor was she ever on tube feeding Message routed to the provider as follow-up * Telephone Encounter - Erich Jaramillo - 01/23/2019 9:01 AM CDT [facility] called to follow-up on request for clinical notes for pt's tube feed. Upon chart review, message below provided: Message from YOANA Zepeda Can you please find out when patient was started on tube feeds and how long she has been on tube feeds? ?? I am unable to find documentation that patient is on tube feedings. ?? Thanks, CARLOS Quiñones Caller stated that the prescription had been written by Dr. Treadwell previously, [place] informed caller that Dr. Treadwell is no longer with this practice, and there is not any documentation to support the fact the pt was ever on tube feedings. Caller verbalized understanding * Telephone Encounter - Gayle Zepeda APRN-CNP - 01/21/2019 2:02 PM CDT Can you please find out when patient was started on tube feeds and how long she has been on tube feeds? I am unable to find documentation that patient is on tube feedings. Thanks, CARLOS Quiñones * Telephone Encounter - Erich Jaramillo - 01/21/2019 11:14 AM CDT [facility] called to request clinical notes for that support the need for the pt'stube feed formula. Caller stated that she faxed over a request form to [facility] office on 01/17, upon chart review, caller informed that the fax had not been uploaded into the pt's chart as this time if ithad been received. Caller stated she would re-fax the document, and [facility] fax number was verified. Caller provided a fax number for [place] of [phone] Message routed to [facility] nurse communication and the provider for further assistance documented in this encounter Plan of Treatment Upcoming Encounters Date Type Department Care Team (Late st Contact Info) Description 09/25/2024 10:00 AM CDT Hospital Encounter [facility] [address] [place] [phone] [place] [address] [place] [phone] 09/25/2024 10:40 AM CDT Office Visit [facility] - Hematology/Oncology [address] [place] [phone] Delonte Rosario MD [address] [place] [phone] 10/07/2024 3:00 PM CDT Office Visit [facility] - ENT [address] [place] [phone] Lalit Jackson MD [address] [place] [address] [place] [address] 10/07/2024 3:30 PM CDT Testing Visit [facility] - ENT [address] [place] [phone] Ronaldo Cavanaugh, PhD [address] [place] [address] [address] [place] [address] 11/06/2024 10:00 AM CDT Appointment [facility] [address] [place] [phone] [place] [address] [place] [phone] 11/06/2024 2:40 PM CDT Office Visit [facility] - Family Medicine [address] [facility] [place] [address] Chapis Isabel MD [address] [place] [address] [address] [place] [address] 01/06/2025 12:30 PM CDT Appointment [facility] [address] [place] [phone] Colton Hollingsworth MD [address] [place] [phone] 01/06/2025 1:30 PM CDT Appointment [facility] CAT SCAN [address] [place] [phone] Colton Hollingsworth MD [address] [place] [address] 01/12/2025 9:00 AM CDT Appointment [facility] RAD ONC [address] [place] [address] Colton Hollingsworth MD [address] [place] [phone] documented as of this encounter Goals Goal Patient Goal Type Associated Problems Recent Progress Patient-Stated? Author Depression Lifestyle No Gayle Bellamy, TRAFFIC CONTROL FLAGGER-ATTRACTION ATTENDANT documented as of this encounter Visit Diagnoses Not on filedocumented in this encounter Care Teams Hand Printed Circuit Board Assembler Relationship Specialty Start Date End Date Hunter Treadwell MD PCP - General 01/08/19 01/22/19 Khalif Ocasio MD [address] [place] [address] [address] [place] [address] PCP - General Internal Medicine 10/12/20 10/12/20 Gayle Bellamy, TRAFFIC CONTROL FLAGGER-ATTRACTION ATTENDANT [address] DIV OF [facility] [place] [address] PCP - General 10/13/20 05/29/21 Mannie Vazquez III, MD [address] [place] [address] PCP - General 05/30/21 06/08/21 Gayle Bellamy, TRAFFIC CONTROL FLAGGER-ATTRACTION ATTENDANT [address] [place] [address] PCP - General 06/09/21 09/01/21 Lisandra Jay MD [address] [place] [address] PCP - General 09/02/21 10/30/21 Mannie Vazquez III, MD [address] [place] [phone] PCP - General 10/31/21 11/14/22 Chapis Isabel MD [address] [place] [address] PCP - General Family Medicine 12/26/23 02/17/24 Chapis Isabel MD [address] [place] [address] PCP - General 03/08/24 Marci Jay DO [address] DIV [place], [place] Resident - PCP Student Resident 10/12/20 06/11/22 Eva Wen MD [address] [place], [place] [phone] Resident - PCP Internal Medicine 06/12/22 02/17/24 Elizabeth Chao, RN Registered Nurse 05/07/23 02/17/24 Delonte Rosario MD [address] [place] [address] Hematology and Oncology 05/07/23 Ana Car APRN-YOANA [address] [place] [address] Nurse Practitioner Nurse Practitioner Family 05/07/23 02/17/24 documented as of this encounter
--- OUTSIDE RECORDS SUMMARY | 2024-09-18 21:12 | XMS_ITS | Encounter Summary ---
Author Organization [facility] Address [address] [facility] [facility] [place] [address] Care Team Providers Care Hobbing Machine Operator Name Role Phone Eva Wen MD Unavailable Elizabeth Chao RN Unavailable Unavailabl e Delonte Rosario MD Unavailable Ana Car APRN-SHAKER FLATWORK Unavailable [phone] Chapis Isabel MD Primary Care Provider Chapis Isabel MD Primary Care Provider Reason for Visit * Reason Onset Date Comments MEDICATION REFILL 11/22/2022 Encounter Details Date Type Department Care Team (Late st Contact Info) Description 11/22/2022 Refill [facility] - Hematology[facility]Oncology [address] [place] [address] [place] [address] [facility] [address] [place] [address] MEDICATION REFILL Social History Tobacco Use Types Packs/Day Years Used Date Smoking Tobacco: Former Cigarettes Q uit: 2015 Smokeless Tobacco: Never Alcohol Use Standard Drinks/Week Comments No 0 (1 standard drink = 0.6 oz pur e alcohol) Quit 2 years ago AUDIT-C Answer Date Recorded Q1: How often do you have a drink containing alc ohol? Never 07/05/2022 Average Number of Drinks Not on file 023 Frequency of Binge Drinking Not on file 09/2022 PHQ-2 Answer Date Recorded PHQ2 TOTAL SCORE 1 11/21/2022 Sex and Gender Information Value Date Recorded Sex Assigned at Not on file Gender Identity Not on file Sexual Orientation Not on file COVID-19 Exposure Response Date Recorded In the last 10 days, have yo u been in contact with someone who was confirmed or suspected to have Coronavirus/COVID-19? No / Unsure 11/21/2022 2:31 PM CDT documented as of this encounter Functional Status Functional Status Response Date of Assess ment Is person deaf or have serious hearing difficult y? No 07/05/2022 Is person blind or have serious difficulty seein g? No 07/05/2022 Does person have serious dif ficulty walking/climbing stairs? No 07/05/2022 Does person have difficulty dressing/bathing? No 07/05/2022 Does person have difficulty doing errands alone? No 07/05/2022 Cognitive Status Response Date of Assessm ent Does person have difficulty concentrating/remembering/making decisions? No 07/05/2022 documented as of this encounter Plan of Treatment Upcoming Encounters Date Type Department Care Team (Late st Contact Info) Description 09/25/2024 10:00 AM CDT Hospital Encounter [facility] [address] [place] [address] [place] [address] [facility] [address] [place] [address] 09/25/2024 10:40 AM CDT Office Visit [facility] - Hematology/Oncology [address] [place] [phone] Delonte Rosario MD [address] [place] [address] 10/07/2024 3:00 PM CDT Office Visit [facility] - ENT [address] [place] [phone] Lalit Jackson MD [address] [place] [address] [place] [address] 10/07/2024 3:30 PM CDT Testing Visit [facility] - ENT [address] [place] [phone] Ronaldo Cavanaugh, PhD [address] [place] [address] [place] [address] 11/06/2024 10:00 AM CDT Appointment [facility] [address] [place] [address] [place] [address] [facility] [address] [place] [address] 11/06/2024 2:40 PM CDT Office Visit [facility] - Family Medicine [address] [place] [phone] Chapis Isabel MD [address] [place] [address] [place] [address] 01/06/2025 12:30 PM CDT Appointment [facility] MRI [address] [place] [address] Colton Hollingsworth MD [address] [place] [address] 01/06/2025 1:30 PM CDT Appointment [facility] CAT SCAN [address] [place] [address] Colton Hollingsworth MD [address] [place] [address] 01/12/2025 9:00 AM CDT Appointment [facility] [address] [place], [place] [phone] Colton Hollingsworth MD [address] [place], [place] [phone] documented as of this encounter Goals Goal Patient Goal Type Associated Problems Recent Progress Patient-Stated? 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) Malignant neoplasm of lung, unspecified laterality, unspecified part of lung (HCC) documented in this encounter Care Teams Hobbing Machine Operator Relationship Specialty Start Date End Date Chapis Isabel MD [address] [place] [address] PCP - General Family Medicine 12/26/23 02/17/24 Chapis Isabel MD [address] [place] [address] PCP - General 03/08/24 Eva Wen MD [address] [place] [address] Resident - PCP Internal Medicine 06/12/22 02/17/24 Elizabeth Chao, ROBER Registered Nurse 05/07/23 02/17/24 Delonte Rosario MD [address] [place] [address] Hematology and Oncology 05/07/23 Ana Car APRN-SHAKER FLATWORK [address] [place] [address] Nurse Practitioner Nurse Practitioner Family 05/07/23 02/17/24 documented as of this encounter
--- OUTSIDE RECORDS SUMMARY | 2024-09-18 21:12 | XMS_ITS | Encounter Summary ---
Author Organization [facility] Address [address] [facility] [place] [address] Care Team Providers Care Transportation Driver Name Role Phone Marci Jay DO Unavailable [phone] Gayle Bellamy APPLICATIONS SYSTEM ANALYST-SPECIALTY FOOD PRODUCTS SUPERVISOR Primary Care Provider + George GARCIA MD, Francis G Primary Care Provider [phone] Gayle Bellamy APPLICATIONS SYSTEM ANALYST-SPECIALTY FOOD PRODUCTS SUPERVISOR Primary Care Provider + Lisandra Jay MD Primary Care Provider [phone] George GARCIA MD, Francis G Primary Care Provider [phone] Eva Wen MD Unavailable Elizabeth Chao RN Unavailable UnavailDelonte Dash MD Unavailable [phone] Ana Car APPLICATIONS SYSTEM ANALYST-SPECIALTY FOOD PRODUCTS SUPERVISOR Unavailable + [phone] Chapis Isabel MD Primary Care Provider [phone] Chapis Isabel MD Primary Care Provider [phone] Reason for Visit * Reason Comments Refill Request Encounter Details Date Type Department Care Team (Late st Contact Info) Description 01/02/2021 [facility] [address] [place] [address] Huey Schafer MD [facility] [place] [address] Refill Request Social History Tobacco Use Types Packs/Day Years [...] Description 09/25/2024 10:00 AM CDT Hospital Encounter [facility] [address] [place] [address] [place] [address] [facility] [address] [place] [address] 09/25/2024 10:40 AM CDT Office Visit [facility] - Hematology/Oncology [address] [place] [address] Delonte Rosario MD [address] [place] [address] 10/07/2024 3:00 PM CDT Office Visit [facility] - ENT [address] [facility] [place] [address] Lalit Jackson MD [address] [place] [address] DEPT [place] [address] 10/07/2024 3:30 PM CDT Testing Visit [facility] - ENT [address] [place] [phone] Ronal[place] Cavanaugh, PhD [address] [place] [address] [place] [address] 11/06/2024 10:00 AM CDT Appointment [facility] [address] [place] [address] [place] [address] [facility] [address] [place] [address] 11/06/2024 2:40 PM CDT Office Visit [facility] - Family Medicine [address] [place] [phone] Chapis Isabel MD [address] [place] [address] [place] [address] 01/06/2025 12:30 PM CDT Appointment [facility] MRI [address] [place] [address] Colton Hollingsworth MD [address] [place] [address] 01/06/2025 1:30 PM CDT Appointment [facility] CAT SCAN [address] [place] [phone] Colton Hollingsworth MD [address] [place] [address] 01/12/2025 9:00 AM CDT Appointment [facility] [address] [place] [address] Colton Hollingsworth MD [address] [place], [place] [phone] documented as of this encounter Goals Goal Patient Goal Type Associated Problems Recent Progress Patient-Stated? Author Depression Lifestyle No Gayle Bellamy, APPLICATIONS SYSTEM ANALYST-SPECIALTY FOOD PRODUCTS SUPERVISOR documented as of this encounter Visit Diagnoses Diagnosis Anxiety Anxiety state, unspecified documented in this encounter Care Teams Transportation Driver Relationship Specialty Start Date End Date Gayle Bellamy, APPLICATIONS SYSTEM ANALYST-SPECIALTY FOOD PRODUCTS SUPERVISOR [address] DIV OF [facility] [place] [address] PCP - General 10/13/20 05/29/21 Mannie Vazquez III, MD [address] [place] [address] PCP - General 05/30/21 06/08/21 Gayle Bellamy, APPLICATIONS SYSTEM ANALYST-SPECIALTY FOOD PRODUCTS SUPERVISOR [address] [place] [address] PCP - General 06/09/21 09/01/21 Lisandra Jay MD [address] [place] [address] PCP - General 09/02/21 10/30/21 Mannie Vazquez III, MD [address] [place] [address] PCP - General 10/31/21 11/14/22 Chapis Isabel MD [address] [place] [address] PCP - General Family Medicine 12/26/23 02/17/24 Chapis Isabel MD [address] [facility] [address] PCP - General 03/08/24 Marci Jay DO [address] [place] [facility] [place] Resident - PCP Student Resident 10/12/20 06/11/22 Eva Wen MD [facility]8 [place], [place] [phone] Resident - PCP Internal Medicine 06/12/22 02/17/24 Elizabeth Chao, ROBER Registered Nurse 05/07/23 02/17/24 Delonte Rosario MD [address] [place] [address] Hematology and Oncology 05/07/23 Ana Car APRN-SPECIALTY FOOD PRODUCTS SUPERVISOR [address] [place] [address] Nurse Practitioner Nurse Practitioner Family 05/07/23 02/17/24 documented as of this encounter
--- OUTSIDE RECORDS SUMMARY | 2024-09-18 21:12 | XMS_ITS | Clinical Summary ---
Author Organization [facility] Address [facility] [place] [address] Care Team Providers Care Accountant Supervisor Name Role Phone Unavailable Primary Care Provider Unavailabl e Social History Tobacco Use Types Packs/Day Years Used Date Smoking Tobacco: Never Assessed Comments Unknown Sex and Gender Information Value Date Recorded Sex Assigned at Not on file Legal Sex Female 5:00 PM CDT Gender Identity Not on file Sexual Orientation Not on file Plan of Treatment Health Maintenance Due Date Last Done Comments Cervical Cancer Screening Pa p Smear (Age 30 to 64) Every 3 Years 1968 Colorectal Cancer Screening Colonoscopy (10 Years) 1968 Annual Physical 1971 Hepatitis C 1986 DTaP, Tdap and Td Vaccines ( 1 - Tdap) 1987 Hepatitis B Vaccines (1 of 3 - 19+ 3-dose series) 1987 Cervical Cancer Screening Pa p with HPV Testing (Age 30 to 64) Every 5 Years 1998 Cervical Cancer Screening with HPV 1998 Mammogram Screening 2008 Zoster Vaccines (1 of 2) 2018 COVID-19 Vaccine (2023-2 5 season) 2024 Influenza Adult (#1) 2024 Meningococcal B Vaccine Aged Out No l onger eligible based on patient's age to complete this topic Meningococcal Vaccine Aged Out No pineda sara eligible based on patient's age to complete this topic Pneumococcal Vaccine: Pediat rics (0 to 5 Years) and At-Risk Patients (6 to 64 Years) Aged Out No longer eligible b ased on patient's age to complete this topic RSV Immunizations Under 20 Months Aged Out No longer eligible based on patient's age to complete this topic
--- OUTSIDE RECORDS SUMMARY | 2024-09-18 21:12 | XMS_ITS | Encounter Summary ---
Author Organization [facility] Address [address] [place] [address] Care Team Providers Care Aircraft Log Clerk Name Role Phone Gayle Bellamy NURSE SANE-CLINICAL APPLICATION MANAGER Primary Care Provider + Hunter Treadwell MD Primary Care Provider Khalif Ocasio MD Primary Care Provider [phone] Marci Jay DO Unavailable [phone] Gayle Bellamy NURSE SANE-CLINICAL APPLICATION MANAGER Primary Care Provider + George GARCIA MD, Francis G Primary Care Provider [phone] Gayle Bellamy NURSE SANE-CLINICAL APPLICATION MANAGER Primary Care Provider + Lisandra Jay MD Primary Care Provider George GARCIA MD, Francis G Primary Care Provider [phone] Eva Wen MD Unavailable Elizabeth Chao RN Unavailable Unavailabl Delonte Locke MD Unavailable Ana Car NURSE SANE-CLINICAL APPLICATION MANAGER Unavailable [phone] Chapis Isabel MD Primary Care Provider [phone] Chapis Isabel MD Primary Care Provider [phone] Encounter Details Date Type Department Care Team (Late st Contact Info) Description 10/16/2018 [facility] [address] [place] [address] Document, Scanned Social History Tobacco Use Types Packs/Day Years Used Date Smoking Tobacco: Former Smokeless Tobacco: Never Alcohol Use Standard Drinks/Week [...] or have serious hearing difficult y? No 04/03/2018 Is person blind or have serious difficulty seein g? No 04/03/2018 Does person have serious dif ficulty walking/climbing stairs? No 04/03/2018 Does person have difficulty dressing/bathing? No 04/03/2018 Does person have difficulty doing errands alone? No 04/03/2018 Cognitive Status Response Date of Assessm ent Does person have difficulty concentrating/remembering/making decisions? No 04/03/2018 documented as of this encounter Plan of Treatment Upcoming Encounters Date Type Department Care Team (Late st Contact Info) Description 09/25/2024 10:00 AM CDT Hospital Encounter [facility] [address] [place] [address] [place] [address] [facility] [address] [place] [address] 09/25/2024 10:40 AM CDT Office Visit [facility] - Hematology/Oncology [address] [place] [address] Delnote Rosario MD [address] [place] [address] 10/07/2024 3:00 PM CDT Office Visit [facility] - ENT [address] [place] [phone] Lalit Jackson MD [address] [place] [address] [place] [address] 10/07/2024 3:30 PM CDT Testing Visit [facility] - ENT [address] [place] [phone] Ronal[place] Cavanaugh, PhD [address] [place] [address] [place] [address] 11/06/2024 10:00 AM CDT Appointment [facility] [address] [place] [address] [place] [address] [facility] [address] [place] [address] 11/06/2024 2:40 PM CDT Office Visit [facility] - Family Medicine [address] [place] [phone] Chapis Isabel MD [address] [place] [address] [place] [address] 01/06/2025 12:30 PM CDT Appointment [facility] MRI [address] [place] [address] Colton Hollingsworth MD [address] [place] [address] 01/06/2025 1:30 PM CDT Appointment [facility] CAT SCAN [address] [place] [phone] Colton Hollingsworth MD [address] [place] [address] 01/12/2025 9:00 AM CDT Appointment [facility] [address] [place] [address] Colton Hollingsworth MD [address] [place], [place] [phone] documented as of this encounter Visit Diagnoses Not on filedocumented in this encounter Care Teams Aircraft Log Clerk Relationship Specialty Start Date End Date Gayle Bellamy, NURSE SANE-CLINICAL APPLICATION MANAGER [address] [place] [address] PCP - General Nurse Practitioner 01/07/19 01/07/19 Hunter Treadwell MD [address] [place] [address] PCP - General 01/08/19 01/22/19 Khalif Ocasio MD [address] [place] [address] PCP - General Internal Medicine 10/12/20 10/12/20 Gayle Bellamy, NURSE SANE-CLINICAL APPLICATION MANAGER [address] [place] [address] PCP - General 10/13/20 05/29/21 Mannie Vazquez III, MD [address] [place] [address] PCP - General 05/30/21 06/08/21 Gayle Bellamy, NURSE SANE-CLINICAL APPLICATION MANAGER [address] [place] [address] PCP - General 06/09/21 09/01/21 Lisandra Jay MD [address] [place] [address] PCP - General 09/02/21 10/30/21 Mannie Vazquez III, MD [address] [place] [address] PCP - General 10/31/21 11/14/22 Chapis Isabel MD [address] [place] [address] PCP - General Family Medicine 12/26/23 02/17/24 Chapis Isabel MD [address] [place] [address] PCP - General 03/08/24 Marci Jay DO [address] [place] Resident - PCP Student Resident 10/12/20 06/11/22 Eva Wen MD [address] [place] [address] Resident - PCP Internal Medicine 06/12/22 02/17/24 Elizabeth Chao, RN Registered Nurse 05/07/23 02/17/24 Delonte Rosario MD [address] [place] [phone] Hematology and Oncology 05/07/23 Ana Car APRN-CLINICAL APPLICATION MANAGER [address] [place] [phone] Nurse Practitioner Nurse Practitioner Family 05/07/23 02/17/24 documented as of this encounter
--- OUTSIDE RECORDS SUMMARY | 2024-09-18 21:12 | XMS_ITS | Encounter Summary ---
Author Organization [facility] Address [address] [facility] [place] [address] Care Team Providers Care Specimen Processor Name Role Phone Marci Jay DO Unavailable [phone] Lisandra Jay MD Primary Care Provider George GARCIA MD, Francis G Primary Care Provider [phone] Eva Wen MD Unavailable Elizabeth Chao RN Unavailable Unavailabl Delonte Locke MD Unavailable Ana Car [facility] Unavailable [phone] Chapis Isabel MD Primary Care Provider Chapis Isabel MD Primary Care Provider Reason for Visit * Reason Onset Date Comments MEDICATION REFILL 09/20/2021 Encounter Details Date Type Department Care Team (Late st Contact Info) Description 09/20/2021 [facility] [address] [place] [address] Colton Perry MD [address] [facility] [place] [address] MEDICATION REFILL Social History Tobacco Use Types [...] Description 09/25/2024 10:00 AM CDT Hospital Encounter [facility] [address] [place] [address] [place] [address] [facility] [address] [place] [address] 09/25/2024 10:40 AM CDT Office Visit [facility] - Hematology/Oncology [address] [place] [phone] Delonte Rosario MD [address] [place] [address] 10/07/2024 3:00 PM CDT Office Visit [facility] - ENT [address] [place] [phone] Lalit Jackson MD [address] [place] [address] [place] [address] 10/07/2024 3:30 PM CDT Testing Visit [facility] - ENT [address] [place] [address] Ronal[place] Cavanaugh, PhD [address] [place] [address] [address] [place] [address] 11/06/2024 10:00 AM CDT Appointment [facility] [address] [place] [address] [place] [address] [facility] [address] [place] [address] 11/06/2024 2:40 PM CDT Office Visit [facility]ician Group - Family Medicine [address] [place] [phone] Chapis Isabel MD [address] [place] [address] [address] [place] [address] 01/06/2025 12:30 PM CDT Appointment [facility] MRI [address] [place] [address] Colton Hollingsworth MD [address] [place] [address] 01/06/2025 1:30 PM CDT Appointment [facility] CAT SCAN [address] [place] [address] Colton Hollingsworth MD [address] [place] [phone] 01/12/2025 9:00 AM CDT Appointment [facility] RAD ONC [address] [place] [address] Colton Hollingsworth MD [address] [place] [address] documented as of this encounter Goals Goal Patient Goal Type Associated Problems Recent Progress Patient-Stated? 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) Malignant neoplasm of lung, unspecified laterality, unspecified part of lung (HCC) documented in this encounter Care Teams Specimen Processor Relationship Specialty Start Date End Date Lisandra Jay MD [address] [place] [address] PCP - General 09/02/21 10/30/21 Mannie Vazquez III, MD [address] [place] [address] PCP - General 10/31/21 11/14/22 Chapis Isabel MD [address] [place] [address] PCP - General Family Medicine 12/26/23 02/17/24 Chapis Isabel MD [address] [place] [address] PCP - General 03/08/24 Marci Jay DO [address] [place] Resident - PCP Student Resident 10/12/20 06/11/22 Eva Wen MD [address] [place] [address] Resident - PCP Internal Medicine 06/12/22 02/17/24 Elizabeth Chao RN Registered Nurse 05/07/23 02/17/24 Delonte Rosario MD [address] [place] [address] Hematology and Oncology 05/07/23 Ana Car APRN-YOANA [address] [place] [address] Nurse Practitioner Nurse Practitioner Family 05/07/23 02/17/24 documented as of this encounter
--- OUTSIDE RECORDS SUMMARY | 2024-09-18 21:12 | XMS_ITS ---
Author Organization [facility] Health Address [address] [facility] [address] Care Team Providers Care Advertising Internship Name Role Phone Chapis Isabel MD Primary Care Provider [phone] Active Problems Problem Noted Date Diagnosed Date [...] fracture, left, closed, initial e ncounter 03/09/2023 intermediate project manager (current) use of anticoagulants 2022 Personal history [...] Rosario MD on 09/14/2023 Overview (06/12/2023): Follows [facility] Dr. Rosario - Diagnosed in 06/15 - [...] between malignancy vs inflammation - Follows with [facility] for brain mets. Negative Brain MRI 05/31. Continue follow up. - Labs obtained today, CBC and CMP stable. - Treatment toxicity assessment completed, no new or worsening AE's noted. She continues to tolerate immunotherapy well. Follows [facility] Dr. Hollingsworth Right upper lung malignancy, [...] remains on chronic immunotherapy for Stage IV [id number] adenocarcinoma lung Recurrent major depressive disorder, in full rem ission 06/15/2016 Trigger finger 06/15/2016 Overview (10/24/2017): Overview: To R ring and L long fingers, showed good improvement with local steroid injections. H/O: hysterectomy 06/02/2015 Current Oncology Plans NSC LUNG MET (PEMBROLIZUMAB) Q42 DAYS - 9 CYCLES OF PEMBRO GIVEN ON PREV ORDER* Plan Start Date:07/11/2019 Plan Provider:Paulo Conte MD Linked Problems Malignant neoplasm of lung, unspecified laterality, unspecified part of lung (HCC)Metastatic cancer to brain (HCC) Treatment Medications Current Day (Day 1 , Cycle 65 - Planned for 09/26/2024) Next Day (Day 1, Cycle 65 - Planned for 11/07/2024) pembrolizumab (Keytruda) Infusion pembrolizumab (Keytruda) 400 mg in 0.9% NaCl IV 116 mL infusion pembrolizumab (Keytruda) 400 mg in 0.9% NaCl IV 116 mL infusion Past Plans ONCOLOGY TREATMENT Plan Name Start Date Discontinue Date Treatment Medications Discontinue Reason Plan Provider Cycles NSC LUNG (DOCETAX EL RAMUCIRU MAB) Q21 DAYS 06/19/20 19 07/11/2019 DOCEtaxel (Taxotere) 250 mL infusionramucirumab (CYRAMZA) infusion Not Started Huey Schafer MD Treatment not started NSC LUNG MET (PEMBROL IZUMAB) Q21 DAYS 9 06/17/2019 pembrolizumab (Keytruda) Infusion Progression Huey Schafer MD 9 of 13 cycles started NSCLC (PEMETRE XED BEVACIZU MAB) Q21 DAYS 6 11/13/2018 bevacizumab (Avastin) InfusionPEMEtrexed (Alimta) Infusion Progression Huey Schafer MD 42 of 42 cycles started Radiation Treatments * Plan Last Treated On Elapsed Days Fractions Treated Prescribed Fraction Dose Prescribed Total Dose #Mediastinu m 07/10/2023 10 of 10 3,000 cGy Reference Point Last Treated On Elapsed Days Session Dose Total Dose PTV 07/10/2023 300 cGy 3,000 cGy Lifetime Dose Tracking * Chemical Lifetime Dose Automatic Entry Manual Entr y Dose Length Product 13,316.8 mGy-cm 13,316.8 mGy-cm 0 mGy-cm Resolved Problems Problem Noted Date Diagnosed Date [...]
--- OUTSIDE RECORDS SUMMARY | 2024-09-18 21:12 | XMS_ITS | Encounter Summary ---
Author Organization [facility] Address [address] [facility] [place] [address] Care Team Providers Care Rubbish Collector Name Role Phone Gayle Bellamy MANAGER CONCRETE-COLD ROLL INSPECTOR Primary Care Provider + Hunter Treadwell MD Primary Care Provider Khalif Ocasio MD Primary Care Provider [phone] Marci Jay DO Unavailable [phone] Gayle Bellamy MANAGER CONCRETE-COLD ROLL INSPECTOR Primary Care Provider + George GARCIA MD, Francis G Primary Care Provider [phone] Gayle Bellamy MANAGER CONCRETE-COLD ROLL INSPECTOR Primary Care Provider + Lisandra Jay MD Primary Care Provider [phone] George GARCIA MD, Francis G Primary Care Provider [phone] Eva Wen MD Unavailable Elizabeth Chao RN Unavailable Unavailabl Delonte Locke MD Unavailable nAa Car MANAGER CONCRETE-COLD ROLL INSPECTOR Unavailable [phone] Chapis Isabel MD Primary Care Provider [phone] Chapis Isabel MD Primary Care Provider [phone] Encounter Details Date Type Department Care Team (Late st Contact Info) Description 11/15/2018 [facility]phone [facility] [address] [place] [address] JoseBlaire, MANAGER CONCRETE-COLD ROLL INSPECTOR [address] [facility] OF HEMATOLOGY [place] [address] Social History Tobacco Use Types Packs/Day Years [...] No 04/03/2018 documented as of this encounter Miscellaneous Notes * Telephone Encounter - Tadeo Tillman MD - 11/16/2018 8:33 AM CDT ----- Message from Talya Velazco RN sent at 11/15/2018 2:19 PM CDT ----- Regarding: PRECRIPTION REQUEST Contact: Patient phoned additional time today requesting prescriptions for: Morphine CR 15 mg tablets: Sig: (1) tablet q 12 hours #60- last script 10/16/18 And Oxycodone IR 10 mg tablets Sig:(1) tablet q 8 hours PRN #90-last script 10/16/2018 Talya Velazco RN, OCN [phone]. documented in this encounter Plan of Treatment Upcoming Encounters Date Type Department Care Team (Late st Contact Info) Description 09/25/2024 10:00 AM CDT Hospital Encounter [facility] [address] [place] [address] [place] [address] [place] [phone] 09/25/2024 10:40 AM CDT Office Visit [facility] - Hematology/Oncology [address] [place] [phone] Delonte Rosario MD [address] [place] [phone] 10/07/2024 3:00 PM CDT Office Visit [facility] - ENT [address] [place] [phone] Lalit Jackson MD [address] [place] [address] DEPT [place] [address] 10/07/2024 3:30 PM CDT Testing Visit [facility] - ENT [address] [place] [phone] Ronaldo Cavanaugh, PhD [address] [place] [address] [place] [address] 11/06/2024 10:00 AM CDT Appointment [facility] [address] [place] [address] [place] [address] [phone] 11/06/2024 2:40 PM CDT Office Visit [facility] Group - Family Medicine [address] [facility], [place] [address] Chapis Isabel MD [address] [place] [address] 2L [place] [address] 01/06/2025 12:30 PM CDT Appointment [facility] MRI [address] [place] [phone] Colton Hollingsworth MD [address] [place] [address] 01/06/2025 1:30 PM CDT Appointment [facility] CAT SCAN [address] [place] [phone] Colton Hollingsworth MD [address] [place] [address] 01/12/2025 9:00 AM CDT Appointment [facility] RAD ONC [facility] [place] [address] Colton Hollingsworth MD [address] [place] [address] documented as of this encounter Visit Diagnoses Not on filedocumented in this encounter Care Teams Rubbish Collector Relationship Specialty Start Date End Date Gayle Bellamy, MANAGER CONCRETE-COLD ROLL INSPECTOR [address] [place] [address] PCP - General Nurse Practitioner 01/07/19 01/07/19 Hunter Treadwell MD [facility] [place] [address] PCP - General 01/08/19 01/22/19 Khalif Ocasio MD [address] [place] [address] 2L DIV OF [facility] [place] [address] PCP - General Internal Medicine 10/12/20 10/12/20 Gayle Bellamy, MANAGER CONCRETE-COLD ROLL INSPECTOR [address] 2L DIV OF [facility] [place] [address] PCP - General 10/13/20 05/29/21 Mannie Vazquez III, MD [address] 2[address] [place] [address] PCP - General 05/30/21 06/08/21 Gayle Bellamy APRN-COLD ROLL INSPECTOR [address] 2[address] [place] [address] PCP - General 06/09/21 09/01/21 Lisandra Jay MD [address] [place] [address] PCP - General 09/02/21 10/30/21 Mannie Vazquez III, MD [address] [place] [address] PCP - General 10/31/21 11/14/22 Chapis Isabel MD [address] [place] [address] PCP - General Family Medicine 12/26/23 02/17/24 Chapis Isabel MD [address] [place] [address] PCP - General 03/08/24 Marci Jay DO [address] 2[address] [facility] INTERNAL MEDICINE [place] Resident - PCP Student Resident 10/12/20 06/11/22 Eva Wen MD [address] [place] [address] Resident - PCP Internal Medicine 06/12/22 02/17/24 Elizabeth Chao, ROBER Registered Nurse 05/07/23 02/17/24 Delonte Rosario MD [address] [place] [address] Hematology and Oncology 05/07/23 Ana Car APRN-YOANA [address] [place] [address] Nurse Practitioner Nurse Practitioner Family 05/07/23 02/17/24 documented as of this encounter
--- OUTSIDE RECORDS SUMMARY | 2024-09-18 21:13 | XMS_ITS | Encounter Summary ---
Author Organization [facility] Address [address] [facility] [place] [address] Care Team Providers Care Pot Runner Name Role Phone Khalif Ocasio MD Primary Care Provider [phone] Marci Jay DO Unavailable [phone] Gayle Bellamy CUPOLA OPERATOR INSULATION-APPLICATIONS ENGINEER MANUFACTURING Primary Care Provider + George GARCIA MD, Francis G Primary Care Provider [phone] Gayle Bellamy CUPOLA OPERATOR INSULATION-APPLICATIONS ENGINEER MANUFACTURING Primary Care Provider + Lisandra Jay MD Primary Care Provider [phone] George GARCIA MD, Francis G Primary Care Provider [phone] Eva Wen MD Unavailable Elizabeth Chao RN Unavailable UnavailDelonte Dash MD Unavailable [phone] Ana Car CUPOLA OPERATOR INSULATION-APPLICATIONS ENGINEER MANUFACTURING Unavailable + [phone] Chapis Isabel MD Primary Care Provider [phone] Chapis Isabel MD Primary Care Provider [phone] Reason for Visit * Reason Onset Date Comments MEDICATION REFILL 03/31/2019 Encounter Details Date Type Department Care Team (Late st Contact Info) Description 03/31/2019 Refill [facility] General Internal Medicine [address] [facility] [address] [place] [address] Gayle Bellamy, CUPOLA OPERATOR INSULATION-APPLICATIONS ENGINEER MANUFACTURING [address] [facility] 2L DIV OF [facility] [place] [address] MEDICATION REFILL Social History Tobacco Use Types [...] encounter Miscellaneous Notes * Telephone Encounter - Johanny Zhou - 03/31/2019 10:14 AM CDT Refill request sent per protocol to provider [facility] 02-26-19 NOV 04-07-19 documented in this encounter Plan of Treatment Upcoming Encounters Date Type Department Care Team (Late Contact Info) Description 09/25/2024 10:00 AM CDT Hospital Encounter [facility] [address] [facility] [place] [address] [place] [address] [facility] [address] [place] [address] 09/25/2024 10:40 AM CDT Office Visit [facility] Physician Group - Hematology/Oncology [address] [place] [phone] Delonte Rosario MD [address] [place] [phone] 10/07/2024 3:00 PM CDT Office Visit [facility] Physician Group - ENT [address] [place] [phone] Lalit Jackson MD [address] [place] [address] [place] [address] 10/07/2024 3:30 PM CDT Testing Visit [facility] Physician Group - ENT [address] [place] [phone] Ronaldo Cavanaugh, PhD [address] [place] [address] 2L [place] [address] 11/06/2024 10:00 AM CDT Appointment [facility] [place] [facility] [address] [place] [address] [place] [address] [facility] [address] [place] [phone] 11/06/2024 2:40 PM CDT Office Visit [facility] Physician Group - Family Medicine [address] [place] [phone] Chapis Isabel MD [address] [place] [address] 2L [place] [phone] 01/06/2025 12:30 PM CDT Appointment [facility] MRI [address] [place] [phone] [place]ton Hollingsworth MD [address] [place] [address] 01/06/2025 1:30 PM CDT Appointment [facility] CAT SCAN [address] [place] [phone] Colton Hollingsworth MD [address] [place] [address] 01/12/2025 9:00 AM CDT Appointment [facility] RAD ONC [address] [place] [address] Colton Hollingsworth MD [facility]5 [place], [place] [phone] documented as of this encounter Goals Goal Patient Goal Type Associated Problems Recent Progress Patient-Stated? Author Depression Lifestyle No Gayle Bellamy, CUPOLA OPERATOR INSULATION-APPLICATIONS ENGINEER MANUFACTURING documented as of this encounter Visit Diagnoses Diagnosis Essential hypertension documented in this encounter Care Teams Pot Runner Relationship Specialty Start Date End Date Khalif Ocasio MD [address] [facility] 2L DIV OF [facility] [place] [address] PCP - General Internal Medicine 10/12/20 10/12/20 Gayle Bellamy, CUPOLA OPERATOR INSULATION-APPLICATIONS ENGINEER MANUFACTURING [address] [facility] 2[place] [address] PCP - General 10/13/20 05/29/21 Mannie Vazquez III, MD [address] [facility] 2L [place] [address] PCP - General 05/30/21 06/08/21 Gayle Bellamy, CUPOLA OPERATOR INSULATION-APPLICATIONS ENGINEER MANUFACTURING [address] [facility] 2L DIV OF [facility] [place] [address] PCP - General 06/09/21 09/01/21 Lisandra Jay MD [address] [place] [address] PCP - General 09/02/21 10/30/21 Mannie Vazquez III, MD [address] [place] [phone] PCP - General 10/31/21 11/14/22 Chapis Isabel MD [address] 2[place] [phone] PCP - General Family Medicine 12/26/23 02/17/24 Chapis Isabel MD [address] [place] [phone] PCP - General 03/08/24 Marci Jay DO [address] 2[address] DIV OF [facility] [place] Resident - PCP Student Resident 10/12/20 06/11/22 Eva Wen MD [address] [place] [address] Resident - PCP Internal Medicine 06/12/22 02/17/24 Elizabeth Chao, ROBER Registered Nurse 05/07/23 02/17/24 Delonte Rosario MD [address] [place] [address] Hematology and Oncology 05/07/23 Ana Car APRN-APPLICATIONS ENGINEER MANUFACTURING [address] [place] [address] Nurse Practitioner Nurse Practitioner Family 05/07/23 02/17/24 documented as of this encounter
--- OUTSIDE RECORDS SUMMARY | 2024-09-18 21:13 | XMS_ITS | Encounter Summary ---
Author Organization [facility] Address [address] [facility] [place] [address] Care Team Providers Care Room Cooler Installer Name Role Phone Chapis Isabel MD Primary Care Provider Reason for Visit * Reason Comments Refill Request Encounter Details Date Type Department Care Team (Late st Contact Info) Description 08/26/2024 Refill [facility] - Hematology/Oncology [address] [place] [address] Delonte Rosario MD [address] [place] [address] Refill Request Social History Tobacco Use Types Packs/Day Years Used Date Smoking Tobacco: Former Cigarettes Q uit: 2015 Smokeless Tobacco: Never Alcohol Use Standard Drinks/Week Comments Yes 1 [...] Answer Date Recorded Patient Health Questionnaire-2 Score 2 01/15/2024 Sex and Gender Information Value Date Recorded [...] 10:00 AM CDT Hospital Encounter [facility] [address] [place] [address] [place] [address] [facility] [address] [place] [phone] 09/25/2024 10:40 AM CDT Office Visit [facility] Physician Group - Hematology/Oncology [address] [place] [phone] Delonte Rosario MD [address] [place] [phone] 10/07/2024 3:00 PM CDT Office Visit [facility] - ENT [address] [place] [phone] Lalit Jackson MD [address] [place] [address] [place] [address] 10/07/2024 3:30 PM CDT Testing Visit [facility]ician Group - ENT [address] [place] [phone] Ronaldo Cavanaugh, PhD [address] [place] [address] 2L [place] [address] 11/06/2024 10:00 AM CDT Appointment [facility] [address] [place] [address] [place] [address] [place] [phone] 11/06/2024 2:40 PM CDT Office Visit [facility] Physician Group - Family Medicine [address] [facility], [place] [phone] Chapis Isabel MD [address] [place] [address] 2L [facility] [place] [phone] 01/06/2025 12:30 PM CDT Appointment [facility] MRI [address] [place] [phone] Colton Hollingsworth MD [address] [place] [address] 01/06/2025 1:30 PM CDT Appointment [facility] CAT SCAN [address] [place] [phone] Colton Hollingsworth MD [address] [place] [address] 01/12/2025 9:00 AM CDT Appointment [facility] RAD ONC [address] [place] [address] Colton Hollingsworth MD [address] [place] [address] documented as of this encounter Goals Goal Patient Goal Type Associated Problems Recent Progress Patient-Stated? Author Depression Lifestyle No Gayle Bellamy, HOME HEALTH CLINICIAN-MOBILE PLANT OPERATORS documented as of this encounter Visit Diagnoses Diagnosis Blood clot in vein Embolism and thrombosis of unspecified site documented in this encounter Care Teams Room Cooler Installer Relationship Specialty Start Date End Date Chapis Isabel MD [address] [phone] PCP - General 03/08/24 documented as of this encounter
--- OUTSIDE RECORDS SUMMARY | 2024-09-18 21:13 | XMS_ITS | Encounter Summary ---
Author Organization [facility] Health Address [address] [facility] [place] [address] Care Team Providers Care Sales Clerk Name Role Phone Chapis Isabel MD Primary Care Provider [phone] Reason for Referral * Evaluate & Treat (Routine) - Open Specialty Diagnoses / Procedures Referred By Ever t Referred To Contact Neurology Diagnoses Chronic tension-type headache, intractable Chapis Isabel MD [address] [place] [phone] [facility] [address] [address] Referral ID Status Reason Start Date Expiration Date V isits Requested Visits Authorized [id number] Open Specialty Services Required 09/18/2024 09/18/2025 1 1 Scheduling Instructions Chronic headaches, worsened after brain surgery. Consider trial of botox. Reason for Visit * Reason Comments Headache Encounter Details Date Type Department Care Team ([facility] Contact Info) Description 09/18/2024 2:20 PM CDT Office Visit [facility] - Family Medicine [address] [place] [address], [place] [phone] Chapis Isabel MD [address] [place] [place] [address] [place] [address] Chronic tension-type headache, intractable (Primary Dx) Social History Tobacco Use Types Packs/Day Years Used Date Smoking Tobacco: Former Cigarettes Q uit: 2015 Smokeless Tobacco: Never Tobacco Cessation:Counseling Given: Not [...] on file documented as of this encounter Last Filed Vital Signs Vital Sign Reading Time Taken Comments Blood Pressure 123/82 09/18/2024 2:41 PM CDT Pulse 106 09/18/2024 2:41 PM CDT Temperature - - Respiratory Rate - - Oxygen Saturation 98% 09/18/2024 2:41 PM CDT Inhaled Oxygen Concentration - - Weight 72.1 kg (159 lb) 09/18/2024 2:41 PM CDT Height 154.9 cm (5' 1 ) 09/18/2024 2:41 PM CDT Body Mass Index 30.04 09/18/2024 2:41 PM CDT documented in this encounter Functional Status Functional Status Response [...] No 07/05/2022 documented as of this encounter Patient Instructions * Patient Instructions* Chapis Isabel MD - 09/18/2024 3:26 PM CDT Neurology referral - Someone should be calling you to schedule, or you can call to schedule this. If you don't hear from the scheduling office in a week, please let me know. See me in October - Call when needing oxycodone - will write 3 times a day. To help keep ear wax from building up: Mix OTC hydrogen peroxide with water 50:50 in a cough syrup cup. Soak this into a cotton ball and squeeze the liquid into your ear. Allow this to sit for about 5 minutes and then drain the liquid. Allow warm water from a shower to enter your ear. Make sure all the liquid comes out. You should not insert a qtip into your ear canal, but you can place it at the entrance of the ear canal to help clean up any liquid. Do this every 1-2 weeks. documented in this encounter Plan of Treatment Upcoming Encounters Date Type Department Care Team (Late st Contact Info) Description 09/25/2024 10:00 AM CDT Hospital Encounter [facility] [address] [place] [address] [place] [address] [facility] [address] [place] [phone] 09/25/2024 10:40 AM CDT Office Visit [facility] - Hematology/Oncology [address] [place] [phone] Delonte Rosario MD [address] [place] [phone] 10/07/2024 3:00 PM CDT Office Visit [facility] Physician [facility] - ENT [address] [place] [phone] Lalit Jackson MD [address] [place] [address] [place] [address] 10/07/2024 3:30 PM CDT Testing Visit [facility] - ENT [address] [place] [phone] Ronaldo Cavanaugh, PhD [address] [place] [address] 2L [place] [address] 11/06/2024 10:00 AM CDT Appointment [facility] [address] [place] [address] [place] [address] [facility] [address] [place] [phone] 11/06/2024 2:40 PM CDT Office Visit [facility] Physician Group - Family Medicine [address] [place] [phone] Chapis Isabel MD [address] [place] [address] DIV [place] [address] 01/06/2025 12:30 PM CDT Appointment [facility] MRI [address] [place] [address] Colton Hollingsworth MD [address] [place] [address] 01/06/2025 1:30 PM CDT Appointment [facility] CAT SCAN [address] [place] [phone] Colton Hollingsworth MD [facility] [place] [address] 01/12/2025 9:00 AM CDT Appointment [facility] RAD ONC [facility]5 [place] [address] Colton Hollingsworth MD [address] [place] [address] Scheduled Referrals Name Type Priority Associated Diagnoses Orde r Schedule AMB REFERRAL TO NEUROLOGY Outpatient Referral Routine Chronic tension-type headache, intractable 1 Occurrences starting 09/18/2024 until 09/18/2025 documented as of this encounter Goals Goal Patient Goal Type Associated Problems Recent Progress Patient-Stated? Author Depression Lifestyle No Gayle Bellamy, PROPERTY INSURANCE INSPECTOR-MEAT HOSTESS documented as of this encounter Visit Diagnoses Diagnosis Chronic tension-type headache, intractable- Primary Chronic tension type headache documented in this encounter Care Teams Sales Clerk Relationship Specialty Start Date End Date Chapis Isabel MD [address] [place] [address] PCP - General 03/08/24 documented as of this encounter
--- OUTSIDE RECORDS SUMMARY | 2024-09-18 21:13 | XMS_ITS | Encounter Summary ---
Author Organization [facility] Health Address [address] [facility] [place] [address] Care Team Providers Care Bicycle Repairer Name Role Phone Chapis Isabel MD Primary Care Provider Reason for Visit * Reason Comments Refill Request Encounter Details Date Type Department Care Team (Late st Contact Info) Description 09/17/2024 Refill [facility] - Hematology/Oncology [address] [place] [address] Delonte Rosario MD [address] [place] [address] Refill Request Social History Tobacco [...] Description 09/25/2024 10:00 AM CDT Hospital Encounter [facility] [address] [place] [address] [place] [address] [facility] [address] [place] [phone] 09/25/2024 10:40 AM CDT Office Visit [facility] - Hematology/Oncology [address] [place] [phone] Delonte Rosario MD [address] [place] [phone] 10/07/2024 3:00 PM CDT Office Visit [facility] - ENT [address] [place] [phone] Lalit Jackson MD [address] [place] [address] DE[place] [address] 10/07/2024 3:30 PM CDT Testing Visit [facility] - ENT [address] [place] [phone] Ronaldo Cavanaugh, PhD [address] [place] [address] 2L [place] [address] 11/06/2024 10:00 AM CDT Appointment [facility] [address] [place] [address] [place] [address] [place] [phone] 11/06/2024 2:40 PM CDT Office Visit [facility] - Family Medicine [address] [facility], [place] [phone] Chapis Isabel MD [address] [place] [address] 2[place] [phone] 01/06/2025 12:30 PM CDT Appointment [facility] MRI [address] [place] [phone] Colton Hollingsworth MD [address] [place] [address] 01/06/2025 1:30 PM CDT Appointment [facility] CAT SCAN [address] [place] [phone] Colton Hollingsworth MD [address] [place] [address] 01/12/2025 9:00 AM CDT Appointment [facility] RAD ONC [address] [place] [address] Colton Hollingsworth MD [address] [place] [address] documented as of this encounter Goals Goal Patient Goal Type Associated Problems Recent Progress Patient-Stated? Author Depression Lifestyle No Gayle Bellamy, CORRECTION LIEUTENANT-METAL MODEL MAKER documented as of this encounter Visit Diagnoses Diagnosis Metastatic cancer to brain (HCC) Secondary malignant neoplasm of brain and spinal cord documented in this encounter Care Teams Bicycle Repairer Relationship Specialty Start Date End Date Chapis Isable MD [address] [place] [phone] PCP - General 03/08/24 documented as of this encounter
--- OUTSIDE RECORDS SUMMARY | 2024-09-18 21:13 | XMS_ITS | Encounter Summary ---
Author Organization [facility] Health Address [address] [facility] [place] [address] Care Team Providers Care Car Shunter Name Role Phone Chapis Isabel MD Primary Care Provider [phone] Reason for Visit * Reason Onset Date Comments MEDICATION REFILL 03/04/2024 Refill Request 03/04/2024 Encounter Details Date Type Department Care Team (Late st Contact Info) Description 03/04/2024 Telephone [facility] - Hematology/Oncology [address] [place] [address] Taylor Smith Update Information MEDICATION REFILL; Refill Request Social History Tobacco Use Types [...] No 07/05/2022 documented as of this encounter Miscellaneous Notes * Telephone Encounter - Taylor Cooper - 03/04/2024 10:56 AM CDT MEDICATION REFILL REQUEST: Patient or (family/friend) calling for request: patient Has pharmacy been contacted by patient/caregiver to verify if any refills are left?yes Name of requestor/pharmacy/company:[facility] Requestor's call back and/or fax number: [phone] Concerns/issues with the prescription?none Pharmacy prescription is to be sent to: [facility] oxycodone Route message to Nurse Pool documented in this encounter Plan of Treatment Upcoming Encounters Date Type Department Care Team (Late st Contact Info) Description 09/25/2024 10:00 AM CDT Hospital Encounter [facility] [address] [place] [address] [place] [address] [facility] [address] [place] [phone] 09/25/2024 10:40 AM CDT Office Visit [facility] - Hematology/Oncology [address] [place] [phone] Delonte Rosario MD [address] [place] [phone] 10/07/2024 3:00 PM CDT Office Visit [facility] - ENT [address] [place] [phone] Lalit Jackson MD [address] [place] [address] [place] [address] 10/07/2024 3:30 PM CDT Testing Visit [facility] - ENT [address] [place] [phone] Ronaldo Cavanaugh, PhD [address] [place] [address] [place] [address] 11/06/2024 10:00 AM CDT Appointment [facility] [address] [place] [address] [place] [address] [facility] [address] [place] [address] 11/06/2024 2:40 PM CDT Office Visit [facility] - Family Medicine [address] [place] [phone] Chapis Isabel MD [address] [place] [address] [place] [address] 01/06/2025 12:30 PM CDT Appointment [facility] MRI [address] [place] [address] Colton Hollingsworth MD [address] [place] [address] 01/06/2025 1:30 PM CDT Appointment [facility] CAT SCAN [address] [place] [address] Colton Hollingsworth MD [address] [place] [address] 01/12/2025 9:00 AM CDT Appointment [facility] [address] [place] [address] Colton Hollingsworth MD [address] [place] [address] documented as of this encounter Goals Goal Patient Goal Type Associated Problems Recent Progress Patient-Stated? Author Depression Lifestyle No Gayle Bellamy, WATER PLANT PUMP OPERATOR-SERVICE RIG OPERATOR documented as of this encounter Visit Diagnoses Not on filedocumented in this encounter Care Teams Car Shunter Relationship Specialty Start Date End Date Chapis Isabel MD [address] [place] [phone] PCP - General 03/08/24 documented as of this encounter
--- OUTSIDE RECORDS SUMMARY | 2024-09-18 21:13 | XMS_ITS | Encounter Summary ---
Author Organization [facility] Health Address [address] [facility] [place] [address] Care Team Providers Care Pastry Assistant Name Role Phone Chapis Isabel MD Primary Care Provider [phone] Encounter Details Date Type Department Care Team (Latest Contact Info) Description 09/18/2024 Travel Social History Tobacco Use Types Packs/Day Years [...] Description 09/25/2024 10:00 AM CDT Hospital Encounter [facility] [address] [place] [address] [place] [address] [place] [phone] 09/25/2024 10:40 AM CDT Office Visit [facility] - Hematology/Oncology [address] [place] [phone] Delonte Rosario MD [address] [place] [phone] 10/07/2024 3:00 PM CDT Office Visit [facility] - ENT [address] [place] [phone] Lalit Jackson MD [address] [place] [address] [place] [address] 10/07/2024 3:30 PM CDT Testing Visit [facility] - ENT [address] [place] [phone] Ronaldo Cavanaugh, PhD [address] [place] [address] [place] [address] 11/06/2024 10:00 AM CDT Appointment [facility] [address] [place] [address] [place] [address] [place] [phone] 11/06/2024 2:40 PM CDT Office Visit [facility] - Family Medicine [facility] [facility], [place] [address] Chapis Isabel MD [address] [place] [address] 2[address] [place] [phone] 01/06/2025 12:30 PM CDT Appointment [facility] MRI [address] [place] [phone] Colton Hollingsworth MD [address] [place] [address] 01/06/2025 1:30 PM CDT Appointment [facility] CAT SCAN [address] [place] [phone] Colton Hollingsworth MD [address] [place] [address] 01/12/2025 9:00 AM CDT Appointment [facility] RAD ONC [address] [place] [address] Colton Hollingsworth MD [address] [place] [address] documented as of this encounter Goals Goal Patient Goal Type Associated Problems Recent Progress Patient-Stated? Author Depression Lifestyle No Gayle Bellamy, ADVANCED CLINICAL SPECIALIST-CERTIFIED NURSES AIDE documented as of this encounter Visit Diagnoses Not on filedocumented in this encounter Care Teams Pastry Assistant Relationship Specialty Start Date End Date Chapis Isabel MD [address] [place] [address] [address] [place] [phone] PCP - General 03/08/24 documented as of this encounter
--- OUTSIDE RECORDS SUMMARY | 2024-09-18 21:13 | XMS_ITS | Encounter Summary ---
Author Organization [facility] Address [address] [facility] [place] [address] Care Team Providers Care Laser Beam Color Scanner Operator Name Role Phone Khalif Ocasio MD Primary Care Provider [phone] Marci Jay DO Unavailable [phone] Gayle Bellamy ECHO TECHNOLOGIST-SQL REPORT DEVELOPER Primary Care Provider + George GARCIA MD, Francis G Primary Care Provider [phone] Gayle Bellamy ECHO TECHNOLOGIST-SQL REPORT DEVELOPER Primary Care Provider + Lisandra aJy MD Primary Care Provider [phone] George GARCIA MD, Francis G Primary Care Provider [phone] Eva Wen MD Unavailable Elizabeth Chao RN Unavailable UnavailDelonte Dash MD Unavailable [phone] Ana Car ECHO TECHNOLOGIST-SQL REPORT DEVELOPER Unavailable + [phone] Chapis Isabel MD Primary Care Provider [phone] Chapis Isabel MD Primary Care Provider [phone] Reason for Visit * Reason Onset Date Comments Eye Problem 11/25/2019 Encounter Details Date Type Department Care Team (Late Contact Info) Description 11/25/2019 Telephone [facility] [address] [place] [address] Lizette Singh MD No info available Eye Problem Social History Tobacco Use Types Packs/Day Years [...] encounter Miscellaneous Notes * Telephone Encounter - Elviateresa Edward - 11/25/2019 4:30 PM CDT Currently on chemotherapy Recurrent corneal abrasions Woke up a couple days ago with eye pain and blurry vision Went to ED and dx with corneal abrasion that needs fu Patient to be seen tomorrow on MARILEE at 0930 prior to chemo treatment on same day at 11 ==r Pt called in was In the ed and was told to come in at 8:45 I dont see notes pt is in pain. documented in this encounter Plan of Treatment Upcoming Encounters Date Type Department Care Team (Late Contact Info) Description 09/25/2024 10:00 AM CDT Hospital Encounter [facility] [address] [place] [address] [place] [address] [facility] [address] [place] [address] 09/25/2024 10:40 AM CDT Office Visit [facility] - Hematology/Oncology [address] [place] [phone] Delonte Rosario MD [address] [place] [phone] 10/07/2024 3:00 PM CDT Office Visit [facility] - ENT [address] [place] [phone] Lalit Jackson MD [address] [place] [address] [place] [address] 10/07/2024 3:30 PM CDT Testing Visit [facility] - ENT [address] [place] [phone] Ronaldo Cavanaugh, PhD [address] [place] [address] 2L [place] [address] 11/06/2024 10:00 AM CDT Appointment [facility] [address] [place] [address] [place] [address] [facility] [address] [place] [address] 11/06/2024 2:40 PM CDT Office Visit [facility] - Family Medicine [address] [place] [phone] Chapis Isabel MD [address] [place] [address] 2L [place] [phone] 01/06/2025 12:30 PM CDT Appointment [facility] MRI [address] [place] [phone] Colton Hollingsworth MD [address] [place], [place] [phone] 01/06/2025 1:30 PM CDT Appointment [facility] CAT SCAN [address] [place] [phone] Colton Hollingsworth MD [address] [place], [place] [phone] 01/12/2025 9:00 AM CDT Appointment [facility] RAD ONC [address] [place] [address] Colton Hollingsworth MD [address] [place], [place] [phone] documented as of this encounter Goals Goal Patient Goal Type Associated Problems Recent Progress Patient-Stated? Author Depression Lifestyle No Gayle Bellamy, ECHO TECHNOLOGIST-SQL REPORT DEVELOPER documented as of this encounter Visit Diagnoses Not on filedocumented in this encounter Care Teams Laser Beam Color Scanner Operator Relationship Specialty Start Date End Date Khalif Ocasio MD [address] [facility] [address] 2[address] [place] [address] PCP - General Internal Medicine 10/12/20 10/12/20 Gayle Bellamy, ECHO TECHNOLOGIST-SQL REPORT DEVELOPER [address] [place] [address] PCP - General 10/13/20 05/29/21 Mannie Vazquez III, MD [address] [place] [phone] PCP - General 05/30/21 06/08/21 Gayle Bellamy, ECHO TECHNOLOGIST-SQL REPORT DEVELOPER [address] [place] [address] PCP - General 06/09/21 09/01/21 Lisandra Jay MD [address] [place] [address] PCP - General 09/02/21 10/30/21 Mannie Vazquez III, MD [address] [place] [phone] PCP - General 10/31/21 11/14/22 Chapis Isabel MD [address] [place] [phone] PCP - General Family Medicine 12/26/23 02/17/24 Chapis Isabel MD [address] [place] [phone] PCP - General 03/08/24 Marci Jay DO [address] 2[address] [place] Resident - PCP Student Resident 10/12/20 06/11/22 Eva Wen MD [address] [place] [address] Resident - PCP Internal Medicine 06/12/22 02/17/24 Elizabeth Chao, ROBER Registered Nurse 05/07/23 02/17/24 Delonte Rosario MD [address] [place] [phone] Hematology and Oncology 05/07/23 Ana Car APRN-SQL REPORT DEVELOPER [address] [place] [address] Nurse Practitioner Nurse Practitioner Family 05/07/23 02/17/24 documented as of this encounter
--- OUTSIDE RECORDS SUMMARY | 2024-09-18 21:13 | XMS_ITS | Encounter Summary ---
Author Organization [facility] Health Address [address] [facility] [place] [address] Care Team Providers Care Manual Writer Name Role Phone Chapis Isabel MD Primary Care Provider [phone] Reason for Visit * Reason Onset Date Comments MEDICATION REFILL 04/03/2024 Encounter Details Date Type Department Care Team (Late st Contact Info) Description 04/03/2024 Refill [facility] - Hematology/Oncology [address] [place] [phone] Taylor Smith Update Information MEDICATION REFILL Social History Tobacco Use Types [...] * Telephone Encounter - Taylor Cooper - 04/03/2024 10:32 AM CDT MEDICATION REFILL REQUEST: Patient or (family/friend) calling for request:patient Has pharmacy been contacted by patient/caregiver to verify if any refills are left?yes Name of requestor/pharmacy/company:jayy [facility]on Requestor's call back and/or fax number: [phone] Concerns/issues with the prescription?last month pharmacy didn;t have enough supply of oxycodone Pharmacy prescription is to be sent to: [facility] [employer] [facility] Oxycodone; morphine Route message to Nurse Pool documented in this encounter Plan of Treatment Upcoming Encounters Date Type Department Care Team (Late st Contact Info) Description 09/25/2024 10:00 AM CDT Hospital Encounter [facility] [address] [place] [address] [place] [address] [facility] [address] [place] [phone] 09/25/2024 10:40 AM CDT Office Visit [facility] - Hematology/Oncology [address] [place] [phone] Delonte Rosario MD [address] [place] [phone] 10/07/2024 3:00 PM CDT Office Visit [facility] - ENT [address] [place] [phone] Lalit Jackson MD [address] [place] [address] [place] [address] 10/07/2024 3:30 PM CDT Testing Visit [facility] - ENT [address] [place] [phone] Ronaldo Cavanaugh, PhD [address] [place] [address] [place] [address] 11/06/2024 10:00 AM CDT Appointment [facility] [address] [place] [address] [place] [address] [facility] [address] [place] [phone] 11/06/2024 2:40 PM CDT Office Visit [facility] - Family Medicine [address] [place] [phone] Chapis Isabel MD [address] [place] [address] [place] [address] 01/06/2025 12:30 PM CDT Appointment [facility] MRI [address] [place] [address] Colton Hollingsworth MD [address] [place] [address] 01/06/2025 1:30 PM CDT Appointment [facility] CAT SCAN [address] [place] [address] Colton Hollingsworth MD [address] [place] [address] 01/12/2025 9:00 AM CDT Appointment [facility] [address] [place] [address] Colton Hollingsworth MD [address] [place] [address] documented as of this encounter Goals Goal Patient Goal Type Associated Problems Recent Progress Patient-Stated? Author Depression Lifestyle No Gayle Bellamy, ABSORPTION OPERATOR-ADMISSION SPECIALIST documented as of this encounter Visit Diagnoses Not on filedocumented in this encounter Care Teams Manual Writer Relationship Specialty Start Date End Date Chapis Isabel MD [address] [place] [phone] PCP - General 03/08/24 documented as of this encounter
[2024-09-18 21:27] VITALS: BP 111/84; PULSE 78; RESP 17; TEMP 36.6; O2SAT 100
--- NOTE | 2024-09-18 21:31 | ECG_ITS ---
Test Date: 2024-09-18 21:37:55 Measurements Intervals [place] Rate: 85 P: 62 IA: 219 QRS: 76 QRSD: 78 T: 20 QT: 367 QTc: 438 Interpretive Statements SINUS RHYTHM WITH FIRST DEGREE AV BLOCK POSSIBLE LEFT ATRIAL ENLARGEMENT [-0.1mV P WAVE IN V1/V2] NONSPECIFIC T-WAVE ABNORMALITY No previous ECG available for comparison Electronically Signed On 09-19-2024 18:27:35 CDT by Amy Jay M.D.
[2024-09-18 21:53] LABS: Basophils Percent Auto 0.4 % (0.2-1.2); Eosinophils Absolute Auto 0.2 K/mm3 (0-0.3); Eosinophils Percent Auto 2.3 % (0-4.4); Hematocrit 39.6 % (37.0-47.0); Hemoglobin 13.1 g/dL (12.0-15.0); Immature Granulocyte Absolute 0.03 K/mm3 (0.00-0.031); Immature Granulocyte Percent A 0.4 % (0-0.5); Lymphocytes Absolute Auto 2.13 K/mm3 (0.9-3.2); Lymphocytes Percent Auto 25.7 % (18.3-44.2); Mean Corpuscular HGB Conc 33.1 g/dl (32-36); Mean Corpuscular Hemoglobin 28.6 pg (26-34); Mean Corpuscular Volume 86.5 fl (80-100); Mean Platelet Volume 10.2 fl (7.4-10.4); Monocytes Absolute Auto 0.5 K/mm3 (0.1-0.6); Neutrophils Absolute Auto 5.4 K/mm3 (1.3-6.7); Neutrophils Percent Auto 65.2 % (45.5-73.1); Platelet Count Result 249 k/mm3 (150-375); Red Blood Count 4.58 M/mm3 (4.2-5.4); White Blood Count 8.3 K/mm3 (4.5-10.0)
[2024-09-18 22:04] LABS: Alanine Aminotransferase 16 U/L (6-35); Albumin Level 4.5 g/dL (3.5-5.1); Alkaline Phosphatase 95 U/L (38-126); Anion Gap 11 mmol/L (4-12); Aspartate Amino Transferase 22 U/L (14-36); Bilirubin,Total 0.4 mg/dL (0.2-1.3); Blood Urea Nitrogen 18 mg/dL (7-17); Calcium 9.3 mg/dL (8.4-10.2); Carbon Dioxide 24 mmol/L (22-30); Chloride 105 mmol/L (98-107); Estimated CRCL calculation 71 ml/min; Estimated Glomerular Filt Rate > 60; Glucose 125 mg/dL (65-110); Potassium 3.9 mmol/L (3.4-5.0); Sodium 140 mmol/L (137-145)
[2024-09-19 01:04] VITALS: BP 96/67; PULSE 77; PULSE 78; RESP 12; TEMP 36.3; O2SAT 100; O2SAT 99
[2024-09-19 02:00] VITALS: BP 102/79; BP 105/76; BP 94/72; PULSE 78; PULSE 85; PULSE 88
[2024-09-19 02:58] LABS: Magnesium 1.7 mg/dL (1.6-2.3); Troponin I < 0.012 ng/mL (0.000-0.034)
[2024-09-19 03:03] VITALS: O2SAT 97
[2024-09-19 03:14] LABS: BEDSIDEPREGUCG Negative (Negative)
[2024-09-19 03:15] VITALS: BP 125/67; PULSE 74; RESP 16; TEMP 36.6; O2SAT 100
--- OUTSIDE RECORDS SUMMARY | 2024-09-19 04:33 | XMS_ITS | Encounter Summary ---
Author Organization [facility] Address [address] [facility] [place] [address] Care Team Providers Care Family Advocate Name Role Phone Gayle Bellamy SWIMMING POOL MAINTENANCE SUPERVISOR-TOOL AND EQUIPMENT RENTAL CLERK Primary Care Provider + Hunter Treadwell MD Primary Care Provider Khalif Ocasio MD Primary Care Provider [phone] Marci Jay DO Unavailable [phone] Gayle Bellamy SWIMMING POOL MAINTENANCE SUPERVISOR-TOOL AND EQUIPMENT RENTAL CLERK Primary Care Provider + George GARCIA MD, Francis G Primary Care Provider [phone] Gayle Bellamy SWIMMING POOL MAINTENANCE SUPERVISOR-TOOL AND EQUIPMENT RENTAL CLERK Primary Care Provider + Lisandra Jay MD Primary Care Provider George GARCIA MD, Francis G Primary Care Provider [phone] Eva Wen MD Unavailable Elizabeth Chao RN Unavailable Unavailabl Delonte Locke MD Unavailable [phone] Ana Car SWIMMING POOL MAINTENANCE SUPERVISOR-TOOL AND EQUIPMENT RENTAL CLERK Unavailable [phone] Chapis Isabel MD Primary Care Provider Chapis Isabel MD Primary Care Provider [phone] Encounter Details Date Type Department Care Team (Late st Contact Info) Description 11/15/2018 [facility]phone [facility] [address] [place] [address] JoseBlaire, SWIMMING POOL MAINTENANCE SUPERVISOR-TOOL AND EQUIPMENT RENTAL CLERK [address] [facility] [place] [place] [address] Social History Tobacco Use Types Packs/Day Years [...] #90-last script 10/16/2018 Talya Velazco RN, OCN [phone]. documented in this encounter Plan of Treatment Upcoming Encounters Date Type Department Care Team (Late st Contact Info) Description 09/25/2024 10:00 AM CDT Hospital Encounter [facility] [address] [place] [address] [place] [address] [place] [phone] 09/25/2024 10:40 AM CDT Office Visit [facility] - Hematology/Oncology [address] [place] [phone] Delonte Rosario MD [address] [place] [phone] 10/07/2024 3:00 PM CDT Office Visit [facility] - ENT [address] [place] [phone] Lalit Jackson MD [address] [place] [address] DE[place] [address] 10/07/2024 3:30 PM CDT Testing Visit [facility] - ENT [address] [place] [phone] Ronaldo Cavanaugh, PhD [address] [place] [address] [place] [address] 11/06/2024 10:00 AM CDT Appointment [facility] [address] [place] [address] [place] [address] [phone] 11/06/2024 2:40 PM CDT Office Visit [facility] - Family Medicine [address] [facility] [place] [address] Chapis Isabel MD [address] [place] [address] [address]L [place] [address] 01/06/2025 12:30 PM CDT Appointment [facility] MRI [address] [place] [phone] Colton Hollingsworth MD [address] [place] [address] 01/06/2025 1:30 PM CDT Appointment [facility] CAT SCAN [address] [place] [phone] Colton Hollingsworth MD [address] [place] [address] 01/12/2025 9:00 AM CDT Appointment [facility] RAD ONC [facility] [place] [address] Colton Hollingsworth MD [address] [place] [address] documented as of this encounter Visit Diagnoses Not on filedocumented in this encounter Care Teams Family Advocate Relationship Specialty Start Date End Date Gayle Bellamy, SWIMMING POOL MAINTENANCE SUPERVISOR-TOOL AND EQUIPMENT RENTAL CLERK [address] [place] [address] PCP - General Nurse Practitioner 01/07/19 01/07/19 Hunter Treadwell MD [facility] [place] [address] PCP - General 01/08/19 01/22/19 Khalif Ocasio MD [address] [place] [address] 2L DIV OF [facility] [place] [address] PCP - General Internal Medicine 10/12/20 10/12/20 Gayle Bellamy, SWIMMING POOL MAINTENANCE SUPERVISOR-TOOL AND EQUIPMENT RENTAL CLERK [address] 2[address] DIV OF [facility] [place] [place] [address] PCP - General 10/13/20 05/29/21 Mannie Vazquez III, MD [address] [place] [address] PCP - General 05/30/21 06/08/21 Gayle Bellamy APRN-TOOL AND EQUIPMENT RENTAL CLERK [address] [place] [address] PCP - General 06/09/21 09/01/21 Lisandra Jay MD [address] [place] [address] PCP - General 09/02/21 10/30/21 Mannie Vazquez III, MD [address] [place] [address] PCP - General 10/31/21 11/14/22 Chapis Isabel MD [address] [place] [address] PCP - General Family Medicine 12/26/23 02/17/24 Chapis Isabel MD [address] [place] [address] PCP - General 03/08/24 Marci Jay DO [address] [facility] [place] Resident - PCP Student Resident 10/12/20 06/11/22 Eva Wen MD [address] [place] [address] Resident - PCP Internal Medicine 06/12/22 02/17/24 Elizabeth Chao, ROBER Registered Nurse 05/07/23 02/17/24 Delonte Rosario MD [address] [place] [address] Hematology and Oncology 05/07/23 Ana Car APRN-YOANA [address] [place] [address] Nurse Practitioner Nurse Practitioner Family 05/07/23 02/17/24 documented as of this encounter
--- OUTSIDE RECORDS SUMMARY | 2024-09-19 04:33 | XMS_ITS | Encounter Summary ---
Author Organization [facility] Address [address] [facility] [address] Care Team Providers Care Comber Setter Name Role Phone Marci Jay DO Unavailable [phone] Lisandra Jay MD Primary Care Provider George GARCIA MD, Francis G Primary Care Provider [phone] Eva Wen MD Unavailable Elizabeth Chao RN Unavailable Unavailabl Delonte Locke MD Unavailable [phone] Ana Car APRNSAINT [facility] Unavailable [phone] Chapis Isabel MD Primary Care Provider Chapis Isabel MD Primary Care Provider Reason for Visit * Reason Onset Date Comments MEDICATION REFILL 09/20/2021 Encounter Details Date Type Department Care Team (Late st Contact Info) Description 09/20/2021 [facility] [address] [place] [address] Colton Perry MD [address] [facility] [place] [address] MEDICATION REFILL Social History Tobacco Use Types [...] Encounter [facility] [address] [place] [address] [place] [address] [facility] [address] [place] [phone] 09/25/2024 10:40 AM CDT Office Visit [facility] - Hematology/Oncology [address] [place] [phone] Delonte Rosario MD [address] [place] [address] 10/07/2024 3:00 PM CDT Office Visit [facility] - ENT [address] [place] [phone] Lalit Jackson MD [address] [place] [address] [place] [address] 10/07/2024 3:30 PM CDT Testing Visit [facility] - ENT [address] [place] [phone] Ronaldo Cavanaugh, PhD [address] [place] [address] 2[address] [place] [address] 11/06/2024 10:00 AM CDT Appointment [facility] [address] [place] [address] [place] [address] [facility] [address] [place] [phone] 11/06/2024 2:40 PM CDT Office Visit [facility] - Family Medicine [address] [place] [phone] Chapis Isabel MD [address] [place] [address] 2[address] [place] [address] 01/06/2025 12:30 PM CDT Appointment [facility] MRI [address] [place] [address] Colton Hollingsworth MD [address] [place] [address] 01/06/2025 1:30 PM CDT Appointment [facility] CAT SCAN [address] [place] [address] Colton Hollingsworth MD [address] [place] [phone] 01/12/2025 9:00 AM CDT Appointment [facility] RAD ONC [address] [place] [address] Colton Hollingsworth MD [address] [place] [address] documented as of this encounter Goals Goal Patient Goal Type Associated Problems Recent Progress Patient-Stated? 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) Malignant neoplasm of lung, unspecified laterality, unspecified part of lung (HCC) documented in this encounter Care Teams Comber Setter Relationship Specialty Start Date End Date Lisandra Jay MD [address] [place] [address] PCP - General 09/02/21 10/30/21 Mannie Vazquez III, MD [address] [place] [address] PCP - General 10/31/21 11/14/22 Chapis Isabel MD [address] [place] [address] PCP - General Family Medicine 12/26/23 02/17/24 Chapis Isabel MD [address] [place] [address] PCP - General 03/08/24 Marci Jay DO [address] 2[address] DIV [place] Resident - PCP Student Resident 10/12/20 06/11/22 Eva Wen MD [address] [place] [address] Resident - PCP Internal Medicine 06/12/22 02/17/24 Elizabeth Chao RN Registered Nurse 05/07/23 02/17/24 Delonte Rosario MD [address] [place] [address] Hematology and Oncology 05/07/23 Ana Car APRN-YOANA [address] [place] [address] Nurse Practitioner Nurse Practitioner Family 05/07/23 02/17/24 documented as of this encounter
--- OUTSIDE RECORDS SUMMARY | 2024-09-19 04:33 | XMS_ITS | Clinical Summary ---
Author Organization [facility] Address [facility] [place] [address] Care Team Providers Care Frame Repairer Name Role Phone Unavailable Primary Care Provider [...]
--- OUTSIDE RECORDS SUMMARY | 2024-09-19 04:33 | XMS_ITS | Encounter Summary ---
Author Organization [facility] Address [address] [place] [address] Care Team Providers Care Menhaden Fishing Crew Member Name Role Phone Marci Jay DO Unavailable [phone] Gayle Bellamy INDUSTRIAL SAFETY AND HEALTH TECHNICIAN-SUPERVISOR FINISHING Primary Care Provider + George GARCIA MD, Francis G Primary Care Provider [phone] Gayle Bellamy INDUSTRIAL SAFETY AND HEALTH TECHNICIAN-SUPERVISOR FINISHING Primary Care Provider + Lisandra Jay MD Primary Care Provider George GARCIA MD, Francis G Primary Care Provider [phone] Eva Wen MD Unavailable Elizabeth Chao RN Unavailable UnavailDelonte Dash MD Unavailable [phone] Ana Car INDUSTRIAL SAFETY AND HEALTH TECHNICIAN-SUPERVISOR FINISHING Unavailable + [phone] Chapis Isabel MD Primary Care Provider [phone] Chapis Isabel MD Primary Care Provider [phone] Reason for Visit * Reason Comments Refill Request Encounter Details Date Type Department Care Team (Late st Contact Info) Description 01/02/2021 [facility] [address] [place] [address] Huey Schafer MD [facility] [facility] OF HEMAT[facility] [place] [address] Refill Request Social History Tobacco Use Types [...] 10:00 AM CDT Hospital Encounter [facility] [address] [place] [address] [place] [address] [facility] [address] [place] [phone] 09/25/2024 10:40 AM CDT Office Visit [facility] - Hematology/Oncology [address] [place] [phone] Delonte Rosario MD [address] [place] [address] 10/07/2024 3:00 PM CDT Office Visit [facility] ENT [address] [facility] [place] [address] Lalit Jackson MD [address] [place] [address] DEPT [place] [address] 10/07/2024 3:30 PM CDT Testing Visit [facility] - ENT [address] [place] [phone] Ronaldo Cavanaugh, PhD [address] [place] [address] [place] [address] 11/06/2024 10:00 AM CDT Appointment [facility] [address] [place] [address] [place] [address] [facility] [address] [place] [address] 11/06/2024 2:40 PM CDT Office Visit [facility] - Family Medicine [address] [place] [phone] Chapis Isabel MD [address] [place] [address] OF [place] [phone] 01/06/2025 12:30 PM CDT Appointment [facility] MRI [address] [place] [address] Colton Hollingsworth MD [address] [place] [address] 01/06/2025 1:30 PM CDT Appointment [facility] CAT SCAN [address] [place] [phone] Colton Hollingsworth MD [address] [place] [address] 01/12/2025 9:00 AM CDT Appointment [facility] ONC [address] [place] [address] Colton Hollingsworth MD [address] [place], [place] [phone] documented as of this encounter Goals Goal Patient Goal Type Associated Problems Recent Progress Patient-Stated? Author Depression Lifestyle No Gayle Bellamy, INDUSTRIAL SAFETY AND HEALTH TECHNICIAN-SUPERVISOR FINISHING documented as of this encounter Visit Diagnoses Diagnosis Anxiety Anxiety state, unspecified documented in this encounter Care Teams Menhaden Fishing Crew Member Relationship Specialty Start Date End Date Gayle Bellamy, INDUSTRIAL SAFETY AND HEALTH TECHNICIAN-SUPERVISOR FINISHING [address] 2[address] DIV OF [facility] [place] [address] PCP - General 10/13/20 05/29/21 Mannie Vazquez III, MD [address] [place] [phone] PCP - General 05/30/21 06/08/21 Gayle Bellamy, INDUSTRIAL SAFETY AND HEALTH TECHNICIAN-SUPERVISOR FINISHING [address] [place] [address] PCP - General 06/09/21 09/01/21 Lisandra Jay MD [address] [place] [address] PCP - General 09/02/21 10/30/21 Mannie Vazquez III, MD [address] [place] [address] PCP - General 10/31/21 11/14/22 Chapis Isabel MD [address] [place] [address] PCP - General Family Medicine 12/26/23 02/17/24 Chapis Isabel MD [address] [facility] [place] [address] PCP - General 03/08/24 Marci Jay DO [address] DIV OF [facility] [place] Resident - PCP Student Resident 10/12/20 06/11/22 Eva Wen MD [facility]8 [place], [place] [phone] Resident - PCP Internal Medicine 06/12/22 02/17/24 Elizabeth Chao, ROBER Registered Nurse 05/07/23 02/17/24 Delonte Rosario MD [address] [place] [address] Hematology and Oncology 05/07/23 Ana Car APRN-SUPERVISOR FINISHING [address] [place] [address] Nurse Practitioner Nurse Practitioner Family 05/07/23 02/17/24 documented as of this encounter
--- OUTSIDE RECORDS SUMMARY | 2024-09-19 04:33 | XMS_ITS | Encounter Summary ---
Author Organization [facility] Address [address] [facility] [place] [address] Care Team Providers Care Liquified Natural Gas Technician Name Role Phone Marci Jay DO Unavailable [phone] Lisandra Jay MD Primary Care Provider George GARCIA MD, Francis G Primary Care Provider [phone] Eva Wen MD Unavailable Elizabeth Chao RN Unavailable Unavailabl Delonte Locke MD Unavailable Ana Car [facility] Unavailable [phone] Chapis Isabel MD Primary Care Provider [phone] Chapis Isabel MD Primary Care Provider [phone] Reason for Visit * Reason Onset Date Comments MEDICATION REFILL 09/20/2021 Encounter Details Date Type Department Care Team (Late st Contact Info) Description 09/20/2021 [facility] [address] [place] [address] Colton Perry MD [address] [facility] [place] [address] MEDICATION REFILL Social History Tobacco Use Types [...] Description 09/25/2024 10:00 AM CDT Hospital Encounter [facility] [address] [place] [address] [place] [address] [facility] [address] [place] [phone] 09/25/2024 10:40 AM CDT Office Visit [facility] - Hematology/Oncology [address] [place] [phone] Delonte Rosario MD [address] [place] [address] 10/07/2024 3:00 PM CDT Office Visit [facility] - ENT [address] [place] [phone] Lalit Jackson MD [address] [place] [address] [place] [address] 10/07/2024 3:30 PM CDT Testing Visit [facility] - ENT [address] [place] [phone] Ronaldo Cavanaugh, PhD [address] [place] [address] 2L [place] [address] 11/06/2024 10:00 AM CDT Appointment [facility] [address] [place] [address] [place] [address] [facility] [address] [place] [address] 11/06/2024 2:40 PM CDT Office Visit [facility] - Family Medicine [address] [place] [address] Chapis Isabel MD [address] [place] [address] 2L [place] [address] 01/06/2025 12:30 PM CDT Appointment [facility] [address] [place] [address] Colton Hollingsworth MD [address] [place] [address] 01/06/2025 1:30 PM CDT Appointment [facility] CAT SCAN [address] [place] [address] Colton Hollingsworth MD [address] [place] [phone] 01/12/2025 9:00 AM CDT Appointment [facility] ONC [address] [place] [address] Colton Hollingswroth MD [address] [place] [address] documented as of this encounter Goals Goal Patient Goal Type Associated Problems Recent Progress Patient-Stated? 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) Malignant neoplasm of lung, unspecified laterality, unspecified part of lung (HCC) documented in this encounter Care Teams Liquified Natural Gas Technician Relationship Specialty Start Date End Date Lisandra Jay MD [address] [place] [address] PCP - General 09/02/21 10/30/21 Mannie Vazquez III, MD [address] [place] [address] PCP - General 10/31/21 11/14/22 Chapis Isabel MD [address] 2[address] [place] [address] PCP - General Family Medicine 12/26/23 02/17/24 Chapis Isabel MD [address] [place] [address] PCP - General 03/08/24 Marci Jay DO [address] 2[address] [place] Resident - PCP Student Resident 10/12/20 06/11/22 Eva Wen MD [address] [place] [address] Resident - PCP Internal Medicine 06/12/22 02/17/24 Elizabeth Chao RN Registered Nurse 05/07/23 02/17/24 Delonte Rosario MD [address] [place] [address] Hematology and Oncology 05/07/23 Ana Car APRN-YOANA [address] [place] [address] Nurse Practitioner Nurse Practitioner Family 05/07/23 02/17/24 documented as of this encounter
--- OUTSIDE RECORDS SUMMARY | 2024-09-19 04:33 | XMS_ITS | Encounter Summary ---
Author Organization [facility] Address [address] [place] [address] Care Team Providers Care Biomedical Equipment Technician Name Role Phone Marci Jay DO Unavailable [phone] Gayle Bellamy AUTOMATIC BRINE MIXER OPERATOR-WARD MAID Primary Care Provider + George GARCIA MD, Francis G Primary Care Provider [phone] Gayle Bellamy AUTOMATIC BRINE MIXER OPERATOR-WARD MAID Primary Care Provider + Lisandra Jay MD Primary Care Provider George GARCIA MD, Francis G Primary Care Provider [phone] Eva Wen MD Unavailable Elizabeth Chao RN Unavailable Unavailabl Delonte Locke MD Unavailable [phone] Ana Car AUTOMATIC BRINE MIXER OPERATOR-WARD MAID Unavailable + [phone] Chapis Isabel MD Primary Care Provider Chapis Isabel MD Primary Care Provider [phone] Reason for Visit * Reason Onset Date Comments MEDICATION REFILL 05/02/2021 Encounter Details Date Type Department Care Team (Late st Contact Info) Description 05/02/2021 [facility] [address] [place] [address] Huey Schafer MD [address] [facility] OF HEMATOLOGY & [place] [address] MEDICATION REFILL Social History Tobacco Use Types [...] Description 09/25/2024 10:00 AM CDT Hospital Encounter [facility] [address] [place] [address] [place] [address] [facility] [address] [place] [address] 09/25/2024 10:40 AM CDT Office Visit [facility] [address] [place] [address] Delonte Rosario MD [address] [place] [address] 10/07/2024 3:00 PM CDT Office Visit [facility] ENT [address], [place] [address] Lalit Jackson MD [address] [place] [address] DEPT [place] [address] 10/07/2024 3:30 PM CDT Testing Visit [facility] - ENT [address] [place] [phone] Ronaldo Cavanaugh, PhD [address] [place] [address] [place] [address] 11/06/2024 10:00 AM CDT Appointment [facility] [address] [place] [address] [place] [address] [facility] [address] [place] [address] 11/06/2024 2:40 PM CDT Office Visit [facility] - Family Medicine [address] [place] [address] Chapis Isabel MD [address] [place] [address] [place] [address] 01/06/2025 12:30 PM CDT Appointment [facility] MRI [address] [place] [address] Colton Hollingsworth MD [address] [place] [address] 01/06/2025 1:30 PM CDT Appointment [facility] CAT SCAN [address] [place] [address] Colton Hollingsworth MD [address] [place] [address] 01/12/2025 9:00 AM CDT Appointment [facility] [address] [place], [place] [phone] Colton Hollingsworth MD [address] [place], [place] [phone] documented as of this encounter Goals Goal Patient Goal Type Associated Problems Recent Progress Patient-Stated? 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) Malignant neoplasm of lung, unspecified laterality, unspecified part of lung (HCC) documented in this encounter Care Teams Biomedical Equipment Technician Relationship Specialty Start Date End Date Gayle Bellamy APRN-YOANA [address] DIV OF [facility] [place] [address] PCP - General 10/13/20 05/29/21 Mannie Vazquez III, MD [address] [place] [phone] PCP - General 05/30/21 06/08/21 Gayle Bellamy, JAY-WARD MAID [address] DIV OF [facility] [place] [address] PCP - General 06/09/21 09/01/21 Lisandra Jay MD [address] [place] [address] PCP - General 09/02/21 10/30/21 Mannie Vazquez III, MD [address] [place] [address] PCP - General 10/31/21 11/14/22 Chapis Isabel MD [address] [place] [address] PCP - General Family Medicine 12/26/23 02/17/24 Chapis Isabel MD [address] [place] [address] PCP - General 03/08/24 Marci Jay DO [address] DIV OF [facility] [place] Resident - PCP Student Resident 10/12/20 06/11/22 Eva Wen MD [address] [place] [address] Resident - PCP Internal Medicine 06/12/22 02/17/24 Elizabeth Chao, RN Registered Nurse 05/07/23 02/17/24 Delonte Rosario MD [address] [place] [phone] Hematology and Oncology 05/07/23 Ana Car APRN-YOANA [address] [place] [address] Nurse Practitioner Nurse Practitioner Family 05/07/23 02/17/24 documented as of this encounter
--- OUTSIDE RECORDS SUMMARY | 2024-09-19 04:33 | XMS_ITS | Encounter Summary ---
Author Organization [facility] Health Address [address] [facility] [place] [address] Care Team Providers Care Wares Sorter Name Role Phone Eva Wen MD Unavailable Elizabeth Chao RN Unavailable Unavailabl e Delonte Rosario MD Unavailable [phone] Ana Car APRN-MASTER CONTROL TECHNICIAN Unavailable [phone] Chapis Isabel MD Primary Care Provider [phone] Chapis Isabel MD Primary Care Provider [phone] Reason for Visit * Reason Onset Date Comments MEDICATION REFILL 11/22/2022 Encounter Details Date Type Department Care Team (Late st Contact Info) Description 11/22/2022 Refill [facility] [address] [place] [address] [place] [address] [facility] [address] [place] [address] MEDICATION REFILL Social History Tobacco [...] Description 09/25/2024 10:00 AM CDT Hospital Encounter [facility] [address] [place] [address] [place] [address] [facility] [address] [place] [address] 09/25/2024 10:40 AM CDT Office Visit [facility] - Hematology/Oncology [address] [place] [address] Delonte Rosario MD [address] [place] [address] 10/07/2024 3:00 PM CDT Office Visit [facility] - ENT [address] [place] [phone] Lalit Jackson MD [address] [place] [address] DE[place] [address] 10/07/2024 3:30 PM CDT Testing Visit [facility] - ENT [address] [place] [phone] Ronaldo Cavanaugh, PhD [address] [place] [address] [place] [address] 11/06/2024 10:00 AM CDT Appointment [facility] [address] [place] [address] [place] [address] [facility] [address] [place] [address] 11/06/2024 2:40 PM CDT Office Visit [facility] - Family Medicine [address] [place] [phone] Chapis Isabel MD [address] [place] [address] [place] [address] 01/06/2025 12:30 PM CDT Appointment [facility] MRI [address] [place] [address] Colton Hollingsworth MD [address] [place] [address] 01/06/2025 1:30 PM CDT Appointment [facility] CAT SCAN [address] [place] [address] Colton Hollingsworth MD [address] [place] [address] 01/12/2025 9:00 AM CDT Appointment [facility] [address] [place], [place] [phone] Colton Hollingsworth MD [address] [place], [place] [phone] documented as of this encounter Goals Goal Patient Goal Type Associated Problems Recent Progress Patient-Stated? 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) Malignant neoplasm of lung, unspecified laterality, unspecified part of lung (HCC) documented in this encounter Care Teams Wares Sorter Relationship Specialty Start Date End Date Chapis Isabel MD [address] [place] [address] PCP - General Family Medicine 12/26/23 02/17/24 Chapis Isabel MD [address] [place] [address] PCP - General 03/08/24 Eva Wen MD [address] [place] [address] Resident - PCP Internal Medicine 06/12/22 02/17/24 Elizabeth Chao, ROBER Registered Nurse 05/07/23 02/17/24 Delonte Rosario MD [address] [place] [address] Hematology and Oncology 05/07/23 Ana Car APRN-MASTER CONTROL TECHNICIAN [address] [place] [address] Nurse Practitioner Nurse Practitioner Family 05/07/23 02/17/24 documented as of this encounter
--- OUTSIDE RECORDS SUMMARY | 2024-09-19 04:33 | XMS_ITS | Encounter Summary ---
Author Organization [facility] Address [address] [facility] [place] [address] Care Team Providers Care Car Changer Name Role Phone Gayle Bellamy AUTOMATION ARCHITECT-CINDER DUMP CRANE OPERATOR Primary Care Provider + Hunter Treadwell MD Primary Care Provider Khalif Ocasio MD Primary Care Provider [phone] Marci Jay DO Unavailable [phone] Gayle Bellamy AUTOMATION ARCHITECT-CINDER DUMP CRANE OPERATOR Primary Care Provider + George GARCIA MD, Francis G Primary Care Provider [phone] Gayle Bellamy AUTOMATION ARCHITECT-CINDER DUMP CRANE OPERATOR Primary Care Provider + Lisandra Jay MD Primary Care Provider [phone] George GARCIA MD, Francis G Primary Care Provider [phone] Eva Wen MD Unavailable Elizabeth Chao RN Unavailable Unavailabl Delonte [place] MD Unavailable Ana Car AUTOMATION ARCHITECT-CINDER DUMP CRANE OPERATOR Unavailable [phone] Chapis Isabel MD Primary Care Provider Chapis Isabel MD Primary Care Provider Encounter Details Date Type Department Care Team (Late st Contact Info) Description 10/16/2018 [facility] [address] [place] [address] Document, Scanned Social History Tobacco Use Types [...] Description 09/25/2024 10:00 AM CDT Hospital Encounter [facility] [address] [place] [address] [place] [address] [facility] [address] [place] [address] 09/25/2024 10:40 AM CDT Office Visit [facility]On[facility] [address] [place] [address] Delonte Rosario MD [address] [place] [address] 10/07/2024 3:00 PM CDT Office Visit [facility] ENT [address] [place] [address] Lalit Jackson MD [address] [place] [address] DE[place] [address] 10/07/2024 3:30 PM CDT Testing Visit [facility] - ENT [address] [place] [phone] Ronaldo Cavanaugh, PhD [address] [place] [address] [place] [address] 11/06/2024 10:00 AM CDT Appointment [facility] [address] [place] [address] [place] [address] [facility] [address] [place] [address] 11/06/2024 2:40 PM CDT Office Visit [facility] - Family Medicine [address] [place] [address] Chapis Isabel MD [address] [place] [address] [place] [address] 01/06/2025 12:[address] [facility] MRI [address] [place] [address] Colton Hollingsworth MD [address] [place] [address] 01/06/2025 1:[address] [facility] CAT SCAN [address] [place] [address] Colton Hollingsworth MD [address] [place] [address] 01/12/2025 9:00 AM CDT Appointment [facility] [address] [place] [address] Colton Hollingsworth MD [address] [place], [place] [phone] documented as of this encounter Visit Diagnoses Not on filedocumented in this encounter Care Teams Car Changer Relationship Specialty Start Date End Date Gayle Bellamy, AUTOMATION ARCHITECT-CINDER DUMP CRANE OPERATOR [address] [place] [address] PCP - General Nurse Practitioner 01/07/19 01/07/19 Hunter Treadwell MD [address] [place] [address] PCP - General 01/08/19 01/22/19 Khalif Ocasio MD [address] [place] [address] PCP - General Internal Medicine 10/12/20 10/12/20 Gayle Bellamy, AUTOMATION ARCHITECT-CINDER DUMP CRANE OPERATOR [address] [place] [address] PCP - General 10/13/20 05/29/21 Mannie Vazquez III, MD [address] [place] [address] PCP - General 05/30/21 06/08/21 Gayle Bellamy, AUTOMATION ARCHITECT-CINDER DUMP CRANE OPERATOR [address] [place] [address] PCP - General 06/09/21 09/01/21 Lisandra Jay MD [address] [place] [address] PCP - General 09/02/21 10/30/21 Mannie Vazquez III, MD [address] [place] [address] PCP - General 10/31/21 11/14/22 Chapis Isabel MD [address] [place] [address] PCP - General Family Medicine 12/26/23 02/17/24 Chapis Isabel MD [address] [place] [address] PCP - General 03/08/24 Marci Jay DO [address] [place] Resident - PCP Student Resident 10/12/20 06/11/22 Eva Wen MD [address] [place] [address] Resident - PCP Internal Medicine 06/12/22 02/17/24 Elizabeth Chao, RN Registered Nurse 05/07/23 02/17/24 Delonte Rosario MD [address] [place] [phone] Hematology and Oncology 05/07/23 Ana Car APRN-CINDER DUMP CRANE OPERATOR [address] [place] [address] Nurse Practitioner Nurse Practitioner Family 05/07/23 02/17/24 documented as of this encounter
--- OUTSIDE RECORDS SUMMARY | 2024-09-19 04:34 | XMS_ITS | Encounter Summary ---
Author Organization [facility] Address [address] [place] [address] Care Team Providers Care Full Time Paramedic Name Role Phone Khalif Ocasio MD Primary Care Provider [phone] Marci Jay DO Unavailable [phone] Gayle Bellamy SHIPWRIGHT HELPER-LAP WINDING MACHINE OPERATOR Primary Care Provider + George GARCIA MD, Francis G Primary Care Provider [phone] Gayle Bellamy SHIPWRIGHT HELPER-LAP WINDING MACHINE OPERATOR Primary Care Provider + Lisandra Jay MD Primary Care Provider [phone] George GARCIA MD, Francis G Primary Care Provider [phone] Eva Wen MD Unavailable Elizabeth Chao RN Unavailable UnavailDelonte Dash MD Unavailable [phone] Ana Car SHIPWRIGHT HELPER-LAP WINDING MACHINE OPERATOR Unavailable + [phone] Chapis Isabel MD Primary Care Provider [phone] Chapis Isabel MD Primary Care Provider [phone] Reason for Visit * Reason Onset Date Comments Eye Problem 11/25/2019 Encounter Details Date Type Department Care Team (Late Contact Info) Description 11/25/2019 Telephone [facility] [address] [place] [address] Lizette Singh MD No info available Eye [...] Description 09/25/2024 10:00 AM CDT Hospital Encounter [facility] [address] [place] [address] [place] [address] [facility] [address] [place] [address] 09/25/2024 10:40 AM CDT Office Visit [facility] - Hematology/Oncology [address] [place] [address] Delonte Rosario MD [address] [place] [address] 10/07/2024 3:00 PM CDT Office Visit [facility] - ENT [address] [place] [phone] Lalit Jackson MD [address] [place] [address] [place] [address] 10/07/2024 3:30 PM CDT Testing Visit [facility] - ENT [address] [place] [phone] Ronaldo Cavanaugh, PhD [address] [place] [address] 2[address] [place] [address] 11/06/2024 10:00 AM CDT Appointment [facility] [address] [place] [address] [place] [address] [facility] [address] [place] [address] 11/06/2024 2:40 PM CDT Office Visit [facility] - Family Medicine [address] [place] [phone] Chapis Isabel MD [address] [place] [address] 2L [place] [address] 01/06/2025 12:30 PM CDT Appointment [facility] [address] [place] [phone] Colton Hollingsworth MD [address] [place], [place] [phone] 01/06/2025 1:30 PM CDT Appointment [facility] CAT SCAN [address] [place] [phone] Colton Hollingsworth MD [address] [place], [place] [phone] 01/12/2025 9:00 AM CDT Appointment [facility] [address] [place] [address] Colton Hollingsworth MD [address] [place], [place] [phone] documented as of this encounter Goals Goal Patient Goal Type Associated Problems Recent Progress Patient-Stated? Author Depression Lifestyle No Gayle Bellamy, SHIPWRIGHT HELPER-LAP WINDING MACHINE OPERATOR documented as of this encounter Visit Diagnoses Not on filedocumented in this encounter Care Teams Full Time Paramedic Relationship Specialty Start Date End Date Khalif Ocasio MD [address] [place] [address] PCP - General Internal Medicine 10/12/20 10/12/20 Gayle Bellamy, SHIPWRIGHT HELPER-LAP WINDING MACHINE OPERATOR [address] [place] [address] PCP - General 10/13/20 05/29/21 Mannie Vazquez III, MD [address] [place] [address] PCP - General 05/30/21 06/08/21 Gayle Bellamy, SHIPWRIGHT HELPER-LAP WINDING MACHINE OPERATOR [address] [place] [address] PCP - General 06/09/21 09/01/21 Lisandra Jay MD [address] [place] [address] PCP - General 09/02/21 10/30/21 Mannie Vazquez III, MD [address] [place] [address] PCP - General 10/31/21 11/14/22 Chapis Isabel MD [address] [address] PCP - General Family Medicine 12/26/23 02/17/24 Chapis Isabel MD [address] [address] PCP - General 03/08/24 Marci Jay DO [address] [place] Resident - PCP Student Resident 10/12/20 06/11/22 Eva Wen MD [address] [place] [address] Resident - PCP Internal Medicine 06/12/22 02/17/24 Elizabeth Chao, ROBER Registered Nurse 05/07/23 02/17/24 Delonte Rosario MD [address] [place] [phone] Hematology and Oncology 05/07/23 Ana Car APRN-LAP WINDING MACHINE OPERATOR [address] [place] [address] Nurse Practitioner Nurse Practitioner Family 05/07/23 02/17/24 documented as of this encounter
--- OUTSIDE RECORDS SUMMARY | 2024-09-19 04:34 | XMS_ITS | Encounter Summary ---
Author Organization [facility] Health Address [address] [place] [address] Care Team Providers Care De Icer Installer Name Role Phone Chapis Isabel MD Primary Care Provider [phone] Reason for Visit * Reason Onset Date Comments MEDICATION REFILL 03/04/2024 Refill Request 03/04/2024 Encounter Details Date Type Department Care Team (Late st Contact Info) Description 03/04/2024 Telephone [facility]Oncology [address] [place] [address] Taylor Smith Update Information MEDICATION [...] landon Requestor's call back and/or fax number: [phone] Concerns/issues with the prescription?none Pharmacy prescription is to be sent to: [facility] oxycodone Route message to Nurse Pool documented in this encounter Plan of Treatment Upcoming Encounters Date Type Department Care Team (Late st Contact Info) Description 09/25/2024 10:00 AM CDT Hospital Encounter [facility] [address] [place] [address] [place] [address] [facility] [address] [place] [address] 09/25/2024 10:40 AM CDT Office Visit [facility] - Hematology/Oncology [address] [place] [phone] Delonte Rosario MD [address] [place] [address] 10/07/2024 3:00 PM CDT Office Visit [facility] - ENT [address] [place] [phone] Lalit Jackson MD [address] [place] [address] [place] [address] 10/07/2024 3:30 PM CDT Testing Visit [facility] - ENT [address] [place] [phone] Ronaldo Cavanaugh, PhD [address] [place] [address] [place] [address] 11/06/2024 10:00 AM CDT Appointment [facility] [address] [place] [address] [place] [address] [facility] [address] [place] [address] 11/06/2024 2:40 PM CDT Office Visit [facility] - Family Medicine [address] [place] [phone] Chapis Isabel MD [address] [place] [address] [place] [address] 01/06/2025 12:30 PM CDT Appointment [facility] [address] [place] [address] Colton Hollingsworth MD [address] [place] [address] 01/06/2025 1:30 PM CDT Appointment [facility] CAT SCAN [address] [place] [address] Colton Hollingsworth MD [address] [place] [address] 01/12/2025 9:00 AM CDT Appointment [facility] [address] [place] [address] Colton Hollingsworth MD [address] [place] [address] documented as of this encounter Goals Goal Patient Goal Type Associated Problems Recent Progress Patient-Stated? Author Depression Lifestyle No Gayle Bellamy, THIRD MATE-FISHING WORKER documented as of this encounter Visit Diagnoses Not on filedocumented in this encounter Care Teams De Icer Installer Relationship Specialty Start Date End Date Chapis Isabel MD [address] [place] [address] PCP - General 03/08/24 documented as of this encounter
--- OUTSIDE RECORDS SUMMARY | 2024-09-19 04:34 | XMS_ITS | Encounter Summary ---
Author Organization [facility] Health Address [address] [facility] [place] [address] Care Team Providers Care Haulpak Driver Name Role Phone Chapis Isabel MD Primary Care Provider [phone] Reason for Visit * Reason Comments Refill Request Encounter Details Date Type Department Care Team (Late st Contact Info) Description 09/17/2024 Refill [facility] - Hematology/Oncology [address] [place] [address] Delonte Rosario MD [address] [place] [address] Refill Request Social History Tobacco [...] Description 09/25/2024 10:00 AM CDT Hospital Encounter [facility] [address] [place] [address] [place] [address] [facility] [address] [place] [phone] 09/25/2024 10:40 AM CDT Office Visit [facility] - Hematology/Oncology [address] [place] [phone] Delonte Rosario MD [address] [place] [phone] 10/07/2024 3:00 PM CDT Office Visit [facility] - ENT [address] [place] [phone] Lalit Jackson MD [address] [place] [address] [place] [address] 10/07/2024 3:30 PM CDT Testing Visit [facility] - ENT [address] [place] [phone] Ronaldo Cavanaugh, PhD [address] [place] [address] 2L [place] [address] 11/06/2024 10:00 AM CDT Appointment [facility] [address] [place] [address] [place] [address] [place] [phone] 11/06/2024 2:40 PM CDT Office Visit [facility] - Family Medicine [address] [facility] [place] [phone] Chapis Isabel MD [address] [place] [address] [address] [phone] 01/06/2025 12:30 PM CDT Appointment [facility] MRI [address] [place] [phone] Colton Hollingsworth MD [address] [place] [address] 01/06/2025 1:30 PM CDT Appointment [facility] CAT SCAN [address] [place] [phone] Colton Hollingsworth MD [address] [place] [address] 01/12/2025 9:00 AM CDT Appointment [facility] RAD ONC [address] [place] [address] Colton Hollingsworth MD [address] [place] [phone] documented as of this encounter Goals Goal Patient Goal Type Associated Problems Recent Progress Patient-Stated? Author Depression Lifestyle No Gayle Bellamy, CLINICAL ASSOCIATE-BONDING AND COMPOSITE FABRICATOR documented as of this encounter Visit Diagnoses Diagnosis Metastatic cancer to brain (HCC) Secondary malignant neoplasm of brain and spinal cord documented in this encounter Care Teams Haulpak Driver Relationship Specialty Start Date End Date Chapis Isabel MD [address] [place] [phone] PCP - General 03/08/24 documented as of this encounter
--- OUTSIDE RECORDS SUMMARY | 2024-09-19 04:34 | XMS_ITS | Encounter Summary ---
Author Organization [facility] Address [address] [facility] [place] [address] Care Team Providers Care Valve Pipe Irrigator Name Role Phone Khalif Ocasio MD Primary Care Provider [phone] Marci Jay DO Unavailable [phone] Gayle Bellamy BULK STATION AGENT-RING FACER Primary Care Provider + George GARCIA MD, Francis G Primary Care Provider [phone] Gayle Bellamy BULK STATION AGENT-RING FACER Primary Care Provider + Lisandra Jay MD Primary Care Provider [phone] George GARCIA MD, Francis G Primary Care Provider [phone] Eva Wen MD Unavailable Elizabeth Chao RN Unavailable UnavailDelonte Dash MD Unavailable [phone] Ana Car BULK STATION AGENT-RING FACER Unavailable + [phone] Chapis Isabel MD Primary Care Provider [phone] Chapis Isabel MD Primary Care Provider [phone] Reason for Visit * Reason Onset Date Comments MEDICATION REFILL 03/31/2019 Encounter Details Date Type Department Care Team (Late st Contact Info) Description 03/31/2019 Refill [facility] [address] [facility] [address] [place] [address] Gayle Bellamy, BULK STATION AGENT-RING FACER [address] [facility] 2L DIV OF [facility] [place] [address] MEDICATION REFILL Social History Tobacco Use Types [...] Refill request sent per protocol to provider [facility] 02-26-19 NOV 04-07-19 documented in this encounter Plan of Treatment Upcoming Encounters Date Type Department Care Team (Late Contact Info) Description 09/25/2024 10:00 AM CDT Hospital Encounter [facility] [address] [facility] [place] [address] [place] [address] [facility] [address] [place] [address] 09/25/2024 10:40 AM CDT Office Visit [facility] - Hematology/Oncology [address] [place] [phone] Delonte Roasrio MD [address] [place] [phone] 10/07/2024 3:00 PM CDT Office Visit [facility] - ENT [address] [place] [phone] Lalit Jackson MD [address] [place] [address] [place] [address] 10/07/2024 3:30 PM CDT Testing Visit [facility] - ENT [address] [place] [phone] Ronaldo Cavanaugh, PhD [address] [place] [address] 2L [place] [address] 11/06/2024 10:00 AM CDT Appointment [facility] [address] [place] [address] [place] [address] [facility] [address] [place] [phone] 11/06/2024 2:40 PM CDT Office Visit [facility] - Family Medicine [address] [place] [phone] Chapis Isabel MD [address] [place] [address] 2L [place] [phone] 01/06/2025 12:30 PM CDT Appointment [facility] MRI [address] [place] [phone] Colton Hollingsworth MD [address] [place] [address] 01/06/2025 1:30 PM CDT Appointment [facility] CAT SCAN [address] [place] [phone] Colton Hollingsworth MD [address] [place] [address] 01/12/2025 9:00 AM CDT Appointment [facility] RAD ONC [address] [place] [address] Colton Hollingsworth MD [facility] [place], [place] [phone] documented as of this encounter Goals Goal Patient Goal Type Associated Problems Recent Progress Patient-Stated? Author Depression Lifestyle No Gayle Bellamy, BULK STATION AGENT-RING FACER documented as of this encounter Visit Diagnoses Diagnosis Essential hypertension documented in this encounter Care Teams Valve Pipe Irrigator Relationship Specialty Start Date End Date Khalif Ocasio MD [address] [facility] [address] DIV OF [facility] [place] [address] PCP - General Internal Medicine 10/12/20 10/12/20 Gayle Bellamy, BULK STATION AGENT-RING FACER [address] [facility] 2[place] [address] PCP - General 10/13/20 05/29/21 Mannie Vazquez III, MD [address] [facility] [address] [address] PCP - General 05/30/21 06/08/21 Gayle Bellamy, BULK STATION AGENT-RING FACER [address] [facility] [address] DIV OF [facility] [place] [address] PCP - General 06/09/21 09/01/21 Lisandra Jay MD [address] [place] [address] PCP - General 09/02/21 10/30/21 Mannie Vazquez III, MD [address] [place] [phone] PCP - General 10/31/21 11/14/22 Chapis Isabel MD [address] [place] [phone] PCP - General Family Medicine 12/26/23 02/17/24 Chapis Isabel MD [address] [place] [phone] PCP - General 03/08/24 Marci Jay DO [address] DIV OF [facility] INTERNAL [place], [place] Resident - PCP Student Resident 10/12/20 06/11/22 Eva Wen MD [address] [place] [address] Resident - PCP Internal Medicine 06/12/22 02/17/24 Elizabeth Chao, ROBER Registered Nurse 05/07/23 02/17/24 Delonte Rosario MD [address] [place] [address] Hematology and Oncology 05/07/23 Ana Car APRN-RING FACER [address] [place] [address] Nurse Practitioner Nurse Practitioner Family 05/07/23 02/17/24 documented as of this encounter
--- OUTSIDE RECORDS SUMMARY | 2024-09-19 04:34 | XMS_ITS | Clinical Summary ---
Author Organization [facility] Address [address] [place] [address] Care Team Providers Care Program Therapist Name Role Phone Chapis Isabel MD Primary Care Provider [phone] Source Comments [facility],non-owned Affiliates and Associated Physician Practices is amultiple site organization consisting of ambulatory clinics and hospital sitesin [place], [place], [place] and [place]. This disclosure is being madepursuant to the Care Everywhere program and may not contain all information available regarding this patient. Last updated 18.[facility] [employer] Allergies No known active allergies Medications * Be aware that medications may not be up to date on this document. Alwaysverify current medications with the patient. Medication Sig Dispensed Refills Start Date End Date Status naloxone HCl (NARCAN) 4 MG/0.1ML nasal sprayIndications :Cancer associated pain Hyder 1 spray into the nose as needed 1 device 1 06/02/2019 Active ARTIFICIAL TEAR OP 1 drop by Ophthalmic route as needed Active buPROPion XL 24hr (WELLBUTRIN-XL) 150 MG tabletIndication s:Recurrent major depressive disorder, in full remission Take 1 (one) tablet by mouth every morning 90 tablet 2 09/01/2021 Active acetaminophen (Tylenol) 500 MG tablet Take 2 (two) tablets by mouth every 6 hours Maximum allowable Acetaminophen amount = 4 Grams (4000 mg) / 24 hours. 03/16/2023 Active bisacodyl (Dulcolax) 10 MG suppository Insert 1 (one) suppository into the rectum once as needed for Constipation (no BM 4 hours MOM/Magnesium hydroxide) 03/16/2023 Active docusate sodium (Colace) 100 MG capsule Take 1 (one) capsule by mouth 2 times daily 03/16/2023 Active Additional Information Patient not taking.Reported on 09/18/2024 polyethylene glycol 3350 (Miralax) 17 g packet Take 17 (seventeen) g by mouth once daily 03/17/2023 Active Additional Information Patient taking differently:17 g OralDAILY PRN, Reported on 08/04/2024 melatonin 3 MG tablet Take 1 (one) tablet by mouth nightly as needed - may repeat one time for Insomnia 03/16/2023 Active nicotine (Nicoderm CQ) 14 MG/24HR patchIndications :Encounter for smoking cessation counseling Apply 1 (one) patch to skin once daily 30 patch 1 10/12/2023 Active metFORMIN ER 24hr (Glucophage XR) 500 MG tabletIndication s:Pre-diabetes Take 1 (one) tablet by mouth daily with dinner 90 tablet 3 01/15/2024 Active traZODone (Desyrel) 50 MG tablet Take 1 (one) tablet by mouth at bedtime 90 tablet 3 03/20/2024 Active diphenhydrAMINE- zinc acetate (Benadryl Extra Strength) 2-0.1 % creamIndications :amount per pharmacy for 1 month Apply to affected area as needed for Itching Reasons: amount per pharmacy for 1 month 6 g 2 04/11/2024 Active triamcinolone acetonide (Kenalog) 0.1 % cream APPLY CREAM EXTERNALLY TO AFFECTED AREA THREE TIMES DAILY 30 g 05/12/2024 Active triamcinolone acetonide (Kenalog) 0.1 % cream Apply to affected area 3 times daily 30 g 05/06/2024 Active guaiFENesin ER 12hr (Mucinex) 600 MG tabletIndication s:Acute cough,Congestion of nasal sinus Take 1 (one) tablet by mouth every 12 hours 60 tablet 07/04/2024 Active Additional Information Patient not taking.Reported on 09/18/2024 benzonatate (Tessalon) 200 MG capsuleIndicatio ns:Acute cough Take 1 (one) capsule by mouth 3 times daily as needed for Cough 30 capsule 07/04/2024 Active ALPRAZolam (Xanax) 0.5 MG tabletIndication s:Metastatic cancer to brain (HCC) TAKE 1/2 (ONE-HALF) TABLET BY MOUTH TWICE DAILY NEEDED 30 tablet 07/30/2024 Active Eliquis 5 MG tabletIndication s:Blood clot in vein Take 1 tablet by mouth twice daily 60 tablet 07/30/2024 Active famotidine (Pepcid) 20 MG tabletIndication s:Gastroesophage al reflux disease, unspecified whether esophagitis present Take 1 tablet by mouth twice daily 90 tablet 08/13/2024 Active omeprazole (PriLOSEC) 40 MG capsuleIndicatio ns:Gastroesophag eal reflux disease, unspecified whether esophagitis present TAKE 1 CAPSULE BY MOUTH ONCE DAILY BEFORE BREAKFAST 90 capsule 08/20/2024 Active morphine CR 12hr (MS Contin) 15 MG tabletIndication s:Cancer associated pain,Malignant neoplasm of lung, unspecified laterality, unspecified part of lung (HCC) Take 1 (one) tablet by mouth every 12 hours 60 tablet 08/26/2024 Active oxyCODONE, immediate release, (Roxicodone) 10 MG tabletIndication s:Chronic Pain Take 1 (one) tablet by mouth every 6 hours as needed for Pain Reasons: Chronic Pain 60 tablet 09/15/2024 Active oxyCODONE, immediate release, (Roxicodone) 10 MG tabletIndication s:Chronic Pain Take 1 (one) tablet by mouth every 6 hours as needed for Pain Reasons: Chronic Pain 120 tablet 08/20/2024 5 Discontinue d(Reorder) morphine CR 12hr (MS Contin) 15 MG tabletIndication s:Cancer associated pain,Malignant neoplasm of lung, unspecified laterality, unspecified part of lung (HCC) Take 1 (one) tablet by mouth every 12 hours 60 tablet 08/20/2024 5 Discontinue d(Reorder) Active Problems Problem Noted Date Diagnosed Date [...] fracture, left, closed, initial e ncounter 03/09/2023 senior living (current) use of anticoagulants 2022 Personal history [...] Rosario MD on 09/14/2023 Overview (06/12/2023): Follows [facility] Dr. Rosario - Diagnosed in 06/15 [...] between malignancy vs inflammation - Follows with [facility] for brain mets. Negative Brain MRI 05/31. Continue follow up. - Labs obtained today, CBC and CMP stable. - Treatment toxicity assessment completed, no new or worsening AE's noted. She continues to tolerate immunotherapy well. Follows [facility] Dr. Hollingsworth Right upper lung malignancy, stage [...] remains on chronic immunotherapy for Stage IV [id number] adenocarcinoma lung Recurrent major depressive disorder, in [...] Visit [facility] [address] [place] [address], [facility] [place] [address] Chapis Isabel MD Chronic tension-type headache, intractable (Primary Dx) 09/18/2024 Travel 09/17/2024 Refill [facility] - Hematology/Oncolog y [address] [place] [address] Delonte Rosario MD Refill Request 09/15/2024 Refill [facility] - Hematology/Oncolog y [address] [place] [address] Britton Lopez, PSYCHOLOGIST PRIVATE PRACTICE REFILL 09/09/2024 Travel 08/26/2024 Refill [facility] - Hematology/Oncolog y [address] [place] [address] Britton Lopez, PSYCHOLOGIST PRIVATE PRACTICE REFILL 08/26/2024 Refill [facility] - Hematology/Oncolog y [address] [place] [address] Delonte Rosario MD Refill Request 08/20/2024 Refill [facility] - Hematology/Oncolog y [address] [place] [address] Silvio Stuart MD MEDICATION REFILL 08/20/2024 Refill [facility] - Hematology/Oncolog y [address] [place] [address] Delonte Rosario MD Refill Request 08/15/2024 9:40 AM CONSTRUCTION AREA MANAGER Office Visit [facility] - Hematology/Oncolog y [address] [place] [address] Miladys Peralta, EQUITY ANALYST-COLLAR STARCHER Malignant neoplasm of left lung, unspecified part of lung (Primary Dx); Encounter for immunotherapy; Acute cough; Congestion of nasal sinus; Cancer associated pain 08/15/2024 9:30 AM CONSTRUCTION AREA MANAGER - 08/15/2024 11:59 PM CONSTRUCTION AREA MANAGER Hospital Encounter [facility] [address] [place] [address] Paulo Conte MD Discharge Disposition: Home or Self Care 08/15/2024 Travel 08/13/2024 Refill [facility] - Hematology/Oncolog y [address] [place] [address] Delonte Rosario MD Refill Request 08/04/2024 10:30 AM CONSTRUCTION AREA MANAGER - 08/04/2024 11:59 PM CONSTRUCTION AREA MANAGER Hospital Encounter [facility] [address] [place] [address] Colton Hollingsworth MD Discharge Disposition: Home or Self Care 07/29/2024 Refill [facility] - Hematology/Oncolog y [address] [place] [address] Delonte Rosario MD Refill Request 07/23/2024 Refill [facility] - Hematology/Oncolog y [address] [place] [address] Britton Lopez, PSYCHOLOGIST PRIVATE PRACTICE REFILL 07/16/2024 Refill [facility] - Hematology/Oncolog y [address] [place] [phone] Delonte Rosario MD Refill Request 07/09/2024 Telephone [facility] - Hematology/Oncolog y [address] [place] [address] Miladys Peralta, EQUITY ANALYST-COLLAR STARCHER Follow-up (Patient had requested phone call after imaging. ) 07/08/2024 1:30 PM CONSTRUCTION AREA MANAGER - 07/08/2024 11:59 PM [facility] Hospital Encounter [facility] CAT SC[facility] [address] [place] [address] Delonte Rosario MD Discharge Disposition: Home or Self Care 07/04/2024 10:20 AM CONSTRUCTION AREA MANAGER Office Visit [facility] - Hematology/Oncolog y [address] [place] [address] Paulo Conte MD Emrich, Lindsey J, EQUITY ANALYST-COLLAR STARCHER Acute cough (Primary Dx); Malignant neoplasm of lung, unspecified laterality, unspecified part of lung; Congestion of nasal sinus; Smoking; Encounter for immunotherapy 07/04/2024 9:30 AM CONSTRUCTION AREA MANAGER - 07/04/2024 11:59 PM CONSTRUCTION AREA MANAGER Hospital Encounter [facility] [address] [place] [phone] Paulo oCnte MD Discharge Disposition: Home or Self Care 07/04/2024 Orders Only [facility] - Hematology/Oncolog y [address] [place] [phone] Delonte Rosario MD 07/04/2024 Travel 06/28/2024 Refill [facility] - Hematology/Oncolog y [address] [place] [phone] Silvio Stuart MD Refill Request 06/24/2024 Refill [facility] - Hematology/Oncolog y [address] [place] [phone] Delonte Rosario MD Refill Request 06/23/2024 Refill [facility] - Hematology/Oncolog y [address] [place] [address] Britton Lopez RN MEDICATION REFILL from Last 3 Months Immunizations Name [...] 35.8 C (96.5 F) 08/15/2024 9:56 AM CONSTRUCTION AREA MANAGER Respiratory Rate 18 08/15/2024 9:56 AM CONSTRUCTION AREA MANAGER Oxygen Saturation 98% 09/18/2024 2:41 PM CDT Inhaled Oxygen Concentration - - Weight 72.1 kg (159 lb) 09/18/2024 2:41 PM CDT Height 154.9 cm (5' 1 ) 09/18/2024 2:41 PM CDT Body Mass Index 30.04 09/18/2024 2:41 PM CDT Plan of Treatment Upcoming Encounters Date Type Department Care Team (Late st Contact Info) Description 09/25/2024 10:00 AM CDT Hospital Encounter [facility] [address] [place] [phone] [place] [address] [facility] [address] [place] [address] 09/25/2024 10:40 AM CDT Office Visit [facility] - Hematology/Oncology [address] [place] [phone] [place] [address] [place] [phone] 10/07/2024 3:00 PM CDT Office Visit [facility] - ENT [address] [place] [phone] Lalit Jackson MD [address] [place] [address] [address] [place] [address] 10/07/2024 3:30 PM CDT Testing Visit [facility] - [facility]NT [address] [place] [phone] Ronaldo Cavanaugh, PhD [address] [place] [address] [address] [place] [address] 11/06/2024 10:00 AM CDT Appointment [facility] [address] [place] [address] [place] [address] [facility] [address] [place] [phone] 11/06/2024 2:40 PM CDT Office Visit [facility] - Family Medicine [address] [place] [phone] Chapis Isabel MD [address] [place] [address] [address] [place] [phone] 01/06/2025 12:30 PM CDT Appointment [facility] MRI [address] [place] [phone] Colton Hollingsworth MD [address] [place] [address] 01/06/2025 1:30 PM CDT Appointment [facility] CAT SCAN [address] [place] [address] Colton Hollingsworth MD [address] [place] [address] 01/12/2025 9:00 AM CDT Appointment [facility] [address] [place] [address] Colton Hollingsworth MD [facility] [place], [place] [phone] Health Maintenance Due Date Last Done Comments [...] Patient-Stated? Author Depression Lifestyle No Gayle Bellamy, EQUITY ANALYST-COLLAR STARCHER Medical Devices Implanted Type Area Rodding Machine Tender Device Identifier Shelf Expiration Date Model / Serial / Lot Point Coil Implanted:Qty: 3 on 02/28/2018 at [facility] Right: Lung [id number] / / Pointcoil Implanted:Qty: 3 on 11/21/2018 at [facility] [id number] / / Description:3 FIDUCIALS IMPL ANTED IN UPPER LOBE OF LEFT LUNG Screw 4.7mm 60mm Ft Evos Strl Osteopenia Implanted:Qty: 1 on 03/15/2023 by Colton Espinoza MD at [facility] Left: [employer] [id number] / / Plate Implanted:Qty: 1 on 03/15/2023 by Colton Espinoza MD at [facility] Left: [employer] Trauma [id number] / / Screw 3.5mm 28mm Slf-Tap Cortx Evos Strl Implanted:Qty: 2 on 03/15/2023 by Colton Espinoza MD at [facility] Left: [employer] [id number] / / Screw 3.5mm 65mm Slf-Tap Cortx Evos Strl Implanted:Qty: 1 on 03/15/2023 by Colton Espinoza MD at [facility] Left: [employer] [id number] / / Screw 3.5mm 30mm Cortx Slf-Tap Evos Strl Implanted:Qty: 1 on 03/15/2023 by Colton Espinoza MD at [facility] Left: [employer] [id number] / / Screw 3.5mm 65mm Slf-Tap Lck Evos Strl Implanted:Qty: 1 on 03/15/2023 by Colton Espinoza MD at [facility] Left: [employer] [id number] / / Screw 3.5mm 60mm Slf-Tap Lck Evos Strl Implanted:Qty: 1 on 03/15/2023 by Colton Espinoza MD at [facility] Left: [employer] [id number] / / Screw 4.7mm 36mm Ft Evos Strl Osteopenia Implanted:Qty: 1 on 03/15/2023 by Colton Espinoza MD at [facility] Left: [employer] [id number] / / Procedures Procedure Name Priority Date/Time Associated Diagnosis Comments COMPREHENSIVE METABOLIC PANEL STAT 08/15/2024 9:47 AM CONSTRUCTION AREA MANAGER Malignant neoplasm of lung, unspecified laterality, unspecified part of lung Metastatic cancer to brain CBC W AUTO DIFFERENTIAL STAT 08/15/2024 9:47 AM CONSTRUCTION AREA MANAGER Malignant neoplasm of lung, unspecified laterality, unspecified part of lung Metastatic cancer to brain TSH REFLEX FREE T4 STAT 08/15/2024 9: 47 AM CONSTRUCTION AREA MANAGER Malignant neoplasm of lung, unspecified laterality, unspecified part of lung Metastatic cancer to brain CT CHEST ABDOMEN PELVIS W CONT Routine 07/08/2024 2:18 PM CONSTRUCTION AREA MANAGER Malignant neoplasm of lung, unspecified laterality, unspecified part of lung COMPREHENSIVE METABOLIC PANEL STAT 07/04/2024 11:02 AM CONSTRUCTION AREA MANAGER Non-small cell cancer of left lung Metastatic cancer to brain CBC W AUTO DIFFERENTIAL STAT 07/04/2024 11:02 AM CONSTRUCTION AREA MANAGER Non-small cell cancer of left lung Metastatic cancer to brain TSH REFLEX FREE T4 STAT 07/04/2024 11 :02 AM CONSTRUCTION AREA MANAGER Non-small cell cancer of left lung Metastatic cancer to brain MAMMO BILAT SCREENING W BANDAR Routine 02/22/2024 12:10 PM CDT Screening mammogram for breast cancer HEPATITIS C ANTIBODY Routine 10/12/2020 3:27 PM CDT Need for hepatitis C screening test LIPID PROFILE Routine 07/08/2019 2:50 PM CONSTRUCTION AREA MANAGER Overweight (BMI 25.0-29.9) HIV-1 HIV-2 ANTIGEN/ANTIBODY Routine 01/07/2019 1:49 PM CDT Healthcare maintenance from Last 3 Months or Most Recently Relevant to Health Maintenance Results * TSH REFLEX FREE T4 (08/15/2024 9:47 AM CONSTRUCTION AREA MANAGER) Only the most recent of2 resultswithin the time period is included. TSH 1.462 0.350 - 4.940 uIU/mL 08/15/2024 10:47 AM CONSTRUCTION AREA MANAGER [facility] Blood BLOOD SPECIMEN / Unknown Venipuncture / Unknown 08/15/2024 9:47 AM CONSTRUCTION AREA MANAGER 08/15/2024 10:08 AM CONSTRUCTION AREA MANAGER Delonte Rosario MD LAB - CHEMISTRY ORDERABLES [address] [address], [facility] [phone] * CBC W AUTO DIFFERENTIAL (08/15/2024 9:47 AM CONSTRUCTION AREA MANAGER) Only the most recent of2 resultswithin the time period is included. WBC 6.9 4.0 - 10.7 x10E9/L 08/15/2024 10:06 AM [facility] RBC Count 4.70 3.90 - 5.20 x10E12/L 08/15/2024 10:06 AM [facility] Hemoglobin 13.1 11.9 - 15.8 g/dL 08/15/2024 10:06 AM [facility] Hematocrit 39.2 34.8 - 46.1 % 08/15/2024 10:06 AM [facility] MCV 83.4 80.0 - 98.0 fL 08/15/2024 10:06 AM [facility] MCH 27.9 26.7 - 33.6 pg 08/15/2024 10:06 AM [facility] MCHC 33.4 31.7 - 36.3 g/dL 08/15/2024 10:06 AM [facility] RDW-CV 13.9 11.3 - 14.8 % 08/15/2024 10:06 AM [facility] Platelet Count 249 150 - 420 x10E9/L 08/15/2024 10:06 AM [facility] MPV 9.7 7.8 - 11.4 fL 08/15/2024 10:06 AM [facility] Preliminary Absolute Neutrophil 4.64 1.60 - 7.50 x10E9/L 08/15/2024 10:06 AM [facility] Neutrophil % 67.4 41.0 - 74.0 % 08/15/2024 10:06 AM [facility] Lymphocyte % 24.5 17.0 - 47.0 % 08/15/2024 10:06 AM [facility] Monocyte % 5.2 3.0 - 11.0 % 08/15/2024 10:06 AM [facility] Eosinophil % 2.5 0.0 - 7.0 % 08/15/2024 10:06 AM [facility] Basophil % 0.1 0.0 - 1.6 % 08/15/2024 10:06 AM [facility] Immature Granulocytes % 0.3 0.0 - 1.0 % 08/15/2024 10:06 AM [facility] Neutrophil Absolute 4.64 1.60 - 7.50 x10E9/L 08/15/2024 10:06 AM [facility] Lymphocyte Absolute 1.69 1.00 - 4.40 x10E9/L 08/15/2024 10:06 AM [facility] Monocyte Absolute 0.36 0.15 - 1.00 x10E9/L 08/15/2024 10:06 AM [facility] Eosinophil Absolute 0.17 0.00 - 0.60 x10E9/L 08/15/2024 10:06 AM [facility] Basophil Absolute 0.01 0.00 - 0.13 x10E9/L 08/15/2024 10:06 AM [facility] Blood BLOOD SPECIMEN / Unknown Venipuncture / Unknown 08/15/2024 9:47 AM [facility] 08/15/2024 10:00 AM [facility] Delonte Rosario MD LAB - HEMATOLOGY ORDERABLES [facility] [address] [place] [phone] [phone] * (ABNORMAL) COMPREHENSIVE METABOLIC PANEL (08/15/2024 9:47 AM [facility]) Only the most recent of2 resultswithin the time period is included. BUN 12 7 - 26 mg/dL 08/15/2024 10:29 AM [facility] Creatinine 0.75 0.56 - 0.96 mg/dL 08/15/2024 10:29 AM [facility] Sodium 138 136 - 145 mmol/L 08/15/2024 10:29 AM [facility] Potassium 4.1 3.5 - 4.5 mmol/L 08/15/2024 10:29 AM [facility] Chloride 108(H) 98 - 107 mmol/L 08/15/2024 10:29 AM [facility] CO2 21(L) 22 - 29 mmol/L 08/15/2024 10:29 AM [facility] Glucose 127(H) 70 - 99 mg/dL 08/15/2024 10:29 AM [facility] Calcium 9.1 8.4 - 10.2 mg/dL 08/15/2024 10:29 AM [facility] Protein Total 8.1 6.0 - 8.3 g/dL 08/15/2024 10:29 AM [facility] Albumin 4.0 3.4 - 5.0 g/dL 08/15/2024 10:29 AM [facility] Bilirubin Total 0.3 0.2 - 1.2 mg/dL 08/15/2024 10:29 AM [facility] Alkaline Phosphatase 88 40 - 150 U/L 08/15/2024 10:29 AM [facility] ALT 9 5 - 55 U/L 08/15/2024 10:29 AM [facility] AST 12 5 - 34 U/L 08/15/2024 10:29 AM [facility] Anion Gap 9 6 - 16 08/15/2024 10:29 AM [facility] BUN/Creatinine Ratio 16 7 - 23 08/15/2024 10:29 AM [facility] Osmolality Calculated 287 275 - 295 mOsm/kg 08/15/2024 10:29 AM [facility] Albumin/Globulin Ratio 1.0(L) 1.1 - 2.3 08/15/2024 10:29 AM [facility] eGFR by CKD-EPI >90 >=90 mL/min/1.7 3 m2 08/15/2024 10:29 AM [facility] Blood BLOOD SPECIMEN / Unknown Venipuncture / Unknown 08/15/2024 9:47 AM CONSTRUCTION AREA MANAGER 08/15/2024 10:08 AM CONSTRUCTION AREA MANAGER Delonte Rosario MD LAB - CHEMISTRY ORDERABLES Performing Organization Address [facility] Co de Phone Number [address] [address], [facility] [phone] * CT THORAX ABDOMEN PELVIS W CONT (07/08/2024 2:18 PM CONSTRUCTION AREA MANAGER) Anatomical Region Laterality Modality Chest, Abdomen, Pelvis Computed Tomography 07/08/2024 3:10 PM CONSTRUCTION AREA MANAGER Impressions 07/08/2024 3:19 PM CONSTRUCTION AREA MANAGER IMPRESSION: 1. Emphysema in both lungs with bilateral areas of consolidation with architectural distortion, consistent with known lung malignancy and treatment change. No CT evidence of disease progression in the lungs. 2. No CT evidence of metastatic disease in the chest, abdomen or pelvis. > Interpreting Provider: Jesus Gonzáles MD on 07/08/2024 3:19 PM Narrative 07/08/2024 3:19 PM CONSTRUCTION AREA MANAGER PROCEDURE: CT CHEST ABDOMEN PELVIS W CONT [...] SCREENING MAMMOGRAM AND BILATERAL BREAST TOMOSYNTHESIS LOCATION: [facility] EXAM DATE: 02/22/2024 HISTORY: Screening. RISK ASSESSMENT [...] significant change from the prior. Misa Jay EQUITY ANALYST-COLLAR STARCHER MAMMO ORDERABLES * HEPATITIS C ANTIBODY (10/12/2020 3:27 PM CDT) Hepatitis C Antibody Non-react juan a Non-reac tive 10/12/2020 4:55 PM CDT [facility] Comment:Hepatitis C Antibody screen indicates no serologic [...] Ocasio MD LAB - CHEMISTRY O RDERABLES Performing Organization Address City/[facility]/ZIP Co de Phone Number [facility] [address] [place] [address], [place] [phone] * LIPID PROFILE (07/08/2019 2:50 PM CONSTRUCTION AREA MANAGER) Cholesterol Total 169 <200 mg/dL 07/08/2019 3:53 PM [facility] HDL 55 >40 mg/dL 07/08/2019 3:53 PM [facility] Comment: ATP III Classification of HDL Cholesterol: <40 mg/dL: Considered a major risk factor. >60 mg/dL: Considered a negative risk factor. LDL Calculated 99 <100 mg/dL 07/08/2019 3:53 PM [facility] Comment: ATP III Classification of LDL Cholesterol: <100 mg/dL: Optimal 100 - 129 mg/dL: Near Optimal/Above Optimal 130 - 159 mg/dL: Borderline High 160 - 189 mg/dL: High >190 mg/dL: Very High Triglycerides 73 <150 mg/dL 07/08/2019 3:53 PM [facility] Comment: ATP III Classification of Triglycerides: <150 mg/dL: Normal 150 - 199 mg/dL: Borderline High 200 - 400 mg/dL: High >500 mg/dL: Very High Blood BLOOD SPECIMEN / Unknown Lab Venipuncture / Unknown 07/08/2019 2:50 PM CONSTRUCTION AREA MANAGER 07/08/2019 3:11 PM CONSTRUCTION AREA MANAGER Gayle Bellamy EQUITY ANALYST-COLLAR STARCHER LAB - CHEMISTRY ORDERABLES Performing Organization Address City/[facility]/ZIP Co de Phone Number [facility] [address] [place] [address], [facility] [phone] * HIV-1 HIV-2 ANTIGEN/ANTIBODY (01/07/2019 1:49 PM CDT) HIV Antigen/Antibod y 1 & 2 Non-reacti ve Non-react juan a 01/07/2019 3:31 PM CDT [facility] Comment: Neither HIV-1 p24 Antigen nor HIV-1/HIV-2 Antibodies are detected. Blood BLOOD SPECIMEN / Unknown Lab Venipuncture / Unknown 01/07/2019 1:49 PM CDT 01/07/2019 2:38 PM CDT Gayle Bellamy EQUITY ANALYST-COLLAR STARCHER LAB - HEMATOLOGY ORDERABLES [facility] [address] [phone] from Last 3 Months or Most Recently Relevant to Health Maintenance Advance Directives Documents on File Type Date Recorded Patient Alumni Relations Coordinator Expl anation Adv Directive/Living Will/POA 12/26/2018 11:30 AM POWER OF DIRECTOR OF BUSINESS APPLICATIONS * Full Code (Latest Code Status on File) Date Activated Date Inactivated Comments 03/15/2023 11:33 AM 03/17/2023 12:54 PM * Full Code Date Activated Date Inactivated Comments 11/29/2018 6:49 PM 12/01/2018 3:17 PM Care Teams Program Therapist Relationship Specialty Start Date End Date Chapis Isabel MD [address] [place] [phone] PCP - General 03/08/24
--- OUTSIDE RECORDS SUMMARY | 2024-09-19 04:34 | XMS_ITS | Encounter Summary ---
Author Organization [facility] Address [address] [facility] [place] [address] Care Team Providers Care Director Motion Picture Name Role Phone Hunter Treadwell MD Primary Care Provider Khalif Ocasio MD Primary Care Provider [phone] Marci Jay DO Unavailable [phone] Gayle Bellamy MEDICAL SUPERVISOR-LOADING UNIT OPERATOR CRIMPING Primary Care Provider + George GARCIA MD, Francis G Primary Care Provider [phone] Gayle Bellamy MEDICAL SUPERVISOR-LOADING UNIT OPERATOR [place]IMPING Primary Care Provider + Lisandra Jay MD Primary Care Provider George GARCIA MD, Francis G Primary Care Provider [phone] Eva Wen MD Unavailable Elizabeth Chao RN Unavailable Unavailabl Delonte Locke MD Unavailable Ana Car MEDICAL SUPERVISOR-LOADING UNIT OPERATOR [place]IMP[place] Unavailable [phone] Chapis Isabel MD Primary Care Provider Chapis Isabel MD Primary Care Provider Reason for Visit * Reason Onset Date Comments Tube Feed Management 01/21/2019 Follow-up 01/23/2019 Encounter Details Date Type Department Care Team (Late st Contact Info) Description 01/21/2019 Telephone [facility] General Internal Medicine [address] [facility] [address] [place] [address] Hunter Treadwell MD [address] [place] [address] Tube Feed Management; Follow-up Social [...] Erich Jaramillo - 01/23/2019 9:01 AM CDT formerly [facility] called to follow-up on request for [...] Erich Jaramillo - 01/21/2019 11:14 AM CDT formerly [facility] called to request clinical notes for that support the need for the pt'stube feed formula. Caller stated that she faxed over a request form to [facility] office on 01/17, upon chart review, caller informed that the fax had not been uploaded into the pt's chart as this time if ithad been received. Caller stated she would re-fax the document, and [facility] fax number was verified. Caller provided a fax number for [place] of [phone] Message routed to [facility] nurse communication and the provider for further assistance documented in this encounter Plan of Treatment Upcoming Encounters Date Type Department Care Team (Late st Contact Info) Description 09/25/2024 10:00 AM CDT Hospital Encounter [facility] [address] [place] [address] [place] [address] [place] [phone] 09/25/2024 10:40 AM CDT Office Visit [facility] Group - Hematology/Oncology [address] [place] [phone] Delonte Rosario MD [address] [place] [phone] 10/07/2024 3:00 PM CDT Office Visit [facility] - ENT [address] [place] [phone] Lalit Jackson MD [address] [place] [address] [place] [address] 10/07/2024 3:30 PM CDT Testing Visit [facility] - ENT [address] [place] [phone] Ronaldo Cavanaugh, PhD [address] [place] [address] 2L [place] [address] 11/06/2024 10:00 AM CDT Appointment [facility] [address] [place] [address] [place] [address] [place] [phone] 11/06/2024 2:40 PM CDT Office Visit [facility] Group - Family Medicine [address] [facility], [place] [address] Chapis Isabel MD [address] [place] [address] 2[place] [address] 01/06/2025 12:30 PM CDT Appointment [facility] MRI [address] [place] [phone] Colton Hollingsworth MD [address] [place] [phone] 01/06/2025 1:30 PM CDT Appointment [facility] CAT SCAN [address] [place] [phone] Colton Hollingsworth MD [address] [place] [address] 01/12/2025 9:00 AM CDT Appointment [facility] RAD ONC [address] [place] [address] Colton Hollingsworth MD [address] [place] [address] [phone] documented as of this encounter Goals Goal Patient Goal Type Associated Problems Recent Progress Patient-Stated? Author Depression Lifestyle No Gayle Bellamy, MEDICAL SUPERVISOR-LOADING UNIT OPERATOR CRIMPING documented as of this encounter Visit Diagnoses Not on filedocumented in this encounter Care Teams Director Motion Picture Relationship Specialty Start Date End Date Hunter Treadwell MD PCP - General 01/08/19 01/22/19 Khalif Ocasio MD [address] [place] [address] 2[address] DIV [place] [address] PCP - General Internal Medicine 10/12/20 10/12/20 Gayle Bellamy, MEDICAL SUPERVISOR-LOADING UNIT OPERATOR [place]IMPING [address] 2[address] DIV OF [facility] [place] [address] PCP - General 10/13/20 05/29/21 Mannie Vazquez III, MD [address] 2[address] [place] [address] PCP - General 05/30/21 06/08/21 Gayle Bellamy, MEDICAL SUPERVISOR-LOADING UNIT OPERATOR CRIMPING [address] 2[address] [place] [address] PCP - General 06/09/21 09/01/21 Lisandra Jay MD [address] [place] [address] PCP - General 09/02/21 10/30/21 Mannie Vazquez III, MD [address] [place] [address] PCP - General 10/31/21 11/14/22 Chapis Isabel MD [address] [place] [address] PCP - General Family Medicine 12/26/23 02/17/24 Chapis Isabel MD [address] [place] [address] PCP - General 03/08/24 Marci Jay DO [address] 2[address] [place] Resident - PCP Student Resident 10/12/20 06/11/22 Eva Wen MD [address] [place], [place] [phone] Resident - PCP Internal Medicine 06/12/22 02/17/24 Elizabeth Chao, RN Registered Nurse 05/07/23 02/17/24 Delonte Rosario MD [address] [place] [address] Hematology and Oncology 05/07/23 Ana Car APRN-YOANA [address] [place] [address] Nurse Practitioner Nurse Practitioner Family 05/07/23 02/17/24 documented as of this encounter
--- OUTSIDE RECORDS SUMMARY | 2024-09-19 04:34 | XMS_ITS | Encounter Summary ---
Author Organization [facility] Health Address [address] [facility] [place] [address] [place] [address] Care Team Providers Care Mucking Machine Operator Name Role Phone Chapis Isabel MD Primary Care Provider [phone] Encounter Details Date Type Department Care Team [...] Description 09/25/2024 10:00 AM CDT Hospital Encounter [facility] [address] [place] [address] [place] [address] [place] [address] [phone] 09/25/2024 10:40 AM CDT Office Visit [facility]ician [facility] - Hematology/Oncology [address] [place] [phone] Delonte Rosario MD [address] [place] [phone] 10/07/2024 3:00 PM CDT Office Visit [facility] Physician [facility] - ENT [address] [place] [phone] Lalit Jackson MD [address] [place] [address] DE[place] [address] 10/07/2024 3:30 PM CDT Testing Visit [facility] - ENT [address] [place] [phone] Ronaldo Cavanaugh, PhD [address] [place] [address] [place] [address] 11/06/2024 10:00 AM CDT Appointment [facility] [address] [place] [address] [place] [address] [place] [phone] 11/06/2024 2:40 PM CDT Office Visit [facility] Physician Group - Family Medicine [facility], [place] [address] Chapis Isabel MD [address] [place] [address] 2L [place] [phone] 01/06/2025 12:30 PM CDT Appointment [facility] MRI [address] [place] [phone] oClton Hollingsworth MD [address] [place] [address] 01/06/2025 1:30 PM CDT Appointment [facility] CAT SCAN [address] [place] [phone] Colton Hollingsworth MD [address] [place] [address] 01/12/2025 9:00 AM CDT Appointment [facility] RAD ONC [address] [place] [address] Colton Hollingsworth MD [address] [place] [address] documented as of this encounter Goals Goal Patient Goal Type Associated Problems Recent Progress Patient-Stated? Author Depression Lifestyle No Gayle Bellamy, CLINICAL COORDINATOR-AUTO RESEARCH ENGINEER documented as of this encounter Visit Diagnoses Not on filedocumented in this encounter Care Teams Mucking Machine Operator Relationship Specialty Start Date End Date Chapis Isabel MD [address] [place] [address] [address] [place] [phone] PCP - General 03/08/24 documented as of this encounter
--- OUTSIDE RECORDS SUMMARY | 2024-09-19 04:34 | XMS_ITS | Encounter Summary ---
Author Organization [facility] Health Address [address] [facility] [place] [address] Care Team Providers Care Removable Prosthodontist Name Role Phone Chapis Isabel MD Primary Care Provider [phone] Reason for Referral * Evaluate & Treat (Routine) - Open Specialty Diagnoses / Procedures Referred By Ever t Referred To Contact Neurology Diagnoses Chronic tension-type headache, intractable Chapis Isabel MD [address] [place] [phone] [facility] [address] [address] Referral ID Status Reason Start Date Expiration Date V isits Requested Visits Authorized [id number] Open Specialty Services Required 09/18/2024 09/18/2025 1 1 Scheduling Instructions Chronic headaches, worsened after brain surgery. Consider trial of botox. Reason for Visit * Reason Comments Headache Encounter Details Date Type Department Care Team ([facility] Contact Info) Description 09/18/2024 2:20 PM CDT Office Visit [facility] - Family Medicine [address] [place] [address], [place] [phone] Chapis Isabel MD [address] [place] [address] [place] [address] Chronic tension-type headache, intractable (Primary [...] Description 09/25/2024 10:00 AM CDT Hospital Encounter [facility] [address] [place] [address] [place] [address] [facility] [address] [place] [phone] 09/25/2024 10:40 AM CDT Office Visit [facility] Physician Group - Hematology/Oncology [address] [place] [phone] Delonte Rosario MD [address] [place] [phone] 10/07/2024 3:00 PM CDT Office Visit [facility] Physician Group - ENT [address] [place] [phone] Lalit Jackson MD [address] [place] [address] [place] [address] 10/07/2024 3:30 PM CDT Testing Visit [facility] Physician Group - ENT [address] [place] [phone] Ronaldo Cavanaugh, PhD [address] [place] [address] 2L [place] [address] 11/06/2024 10:00 AM CDT Appointment [facility] [address] [place] [address] [place] [address] [facility] [address] [place] [phone] 11/06/2024 2:40 PM CDT Office Visit [facility] Physician Group - Family Medicine [address] [place] [phone] Chapis Isabel MD [address] [place] [address] [place] [address] 01/06/2025 12:30 PM CDT Appointment [facility] MRI [address] [place] [address] Colton Hollingsworth MD [address] [place] [address] 01/06/2025 1:30 PM CDT Appointment [facility] CAT SCAN [address] [place] [phone] Colton Hollingsworth MD [facility] [place] [address] 01/12/2025 9:00 AM CDT Appointment [facility] RAD ONC [facility] [place] [address] Colton Hollingsworth MD [address] [place] [address] Scheduled Referrals Name Type Priority Associated Diagnoses Orde r Schedule AMB REFERRAL TO NEUROLOGY Outpatient Referral Routine Chronic tension-type headache, intractable 1 Occurrences starting 09/18/2024 until 09/18/2025 documented as of this encounter Goals Goal Patient Goal Type Associated Problems Recent Progress Patient-Stated? Author Depression Lifestyle No Gayle Bellamy, POWER LINE INSTALLER AND REPAIRER-SORTER PACKER documented as of this encounter Visit Diagnoses Diagnosis Chronic tension-type headache, intractable- Primary Chronic tension type headache documented in this encounter Care Teams Removable Prosthodontist Relationship Specialty Start Date End Date Chapis Isabel MD [address] [place] [address] PCP - General 03/08/24 documented as of this encounter
--- OUTSIDE RECORDS SUMMARY | 2024-09-19 04:34 | XMS_ITS ---
Author Organization [facility] Health Address [address] [facility] [place] [address] Care Team Providers Care Digital Librarian Name Role Phone Chapis Isabel MD Primary Care Provider [phone] Active Problems Problem Noted Date Diagnosed Date [...] fracture, left, closed, initial e ncounter 03/09/2023 bed bug exterminator (current) use of anticoagulants 2022 Personal history [...] Rosario MD on 09/14/2023 Overview (06/12/2023): Follows [facility] Dr. Rosario - Diagnosed in 06/15 [...] between malignancy vs inflammation - Follows with [facility] for brain mets. Negative Brain MRI 05/31. Continue follow up. - Labs obtained today, CBC and CMP stable. - Treatment toxicity assessment completed, no new or worsening AE's noted. She continues to tolerate immunotherapy well. Follows [facility] Dr. Hollingsworth Right upper lung malignancy, [...] remains on chronic immunotherapy for Stage IV [id number] adenocarcinoma lung Recurrent major depressive disorder, in [...]
--- OUTSIDE RECORDS SUMMARY | 2024-09-19 04:34 | XMS_ITS | Encounter Summary ---
Author Organization [facility] Health Address [address] [facility] [place] [address] Care Team Providers Care Analysis Engineer Name Role Phone Chapis Isabel MD Primary Care Provider Reason for Visit * Reason Comments Refill Request Encounter Details Date Type Department Care Team (Late st Contact Info) Description 08/26/2024 Refill [facility] - Hematology/Oncology [address] [place] [address] Delonte Rosario MD [address] [place] [address] Refill Request Social History Tobacco [...] Description 09/25/2024 10:00 AM CDT Hospital Encounter [facility] C[facility] [address] [place] [address] [place] [address] [facility] [address] [place] [phone] 09/25/2024 10:40 AM CDT Office Visit [facility]ician [facility] - Hematology/Oncology [address] [place] [phone] Delonte Rosario MD [address] [place] [phone] 10/07/2024 3:00 PM CDT Office Visit [facility] Physician Group - ENT [address] [place] [phone] Lalit Jackson MD [address] [place] [address] DEPT [place] [address] 10/07/2024 3:30 PM CDT Testing Visit [facility] Physician [facility] - ENT [address] [place] [phone] Ronaldo Cavanaugh, PhD [address] [place] [address] 2L [place] [address] 11/06/2024 10:00 AM CDT Appointment [facility] [address] [place] [address] [place] [address] [facility] [address] [place] [phone] 11/06/2024 2:40 PM CDT Office Visit [facility] Physician Group - Family Medicine [address] [facility], [place] [phone] Chapis Isabel MD [address] [place] [address] [address] [facility] [place] [phone] 01/06/2025 12:30 PM CDT Appointment [facility] MRI [address] [place] [phone] Colton Hollingsworth MD [address] [place] [address] 01/06/2025 1:30 PM CDT Appointment [facility] CAT SCAN [address] [place] [phone] Colton Hollingsworth MD [address] [place] [address] 01/12/2025 9:00 AM CDT Appointment [facility] RAD ONC [address] [place] [address] Colton Hollingsworth MD [address] [place] [address] documented as of this encounter Goals Goal Patient Goal Type Associated Problems Recent Progress Patient-Stated? Author Depression Lifestyle No Gayle Bellamy, HUMAN RELATIONS MANAGER-SPLIT AND DRUM ROOM SUPERVISOR documented as of this encounter Visit Diagnoses Diagnosis Blood clot in vein Embolism and thrombosis of unspecified site documented in this encounter Care Teams Analysis Engineer Relationship Specialty Start Date End Date Chapis Isabel MD [address] [phone] PCP - General 03/08/24 documented as of this encounter
--- OUTSIDE RECORDS SUMMARY | 2024-09-19 04:34 | XMS_ITS | Encounter Summary ---
Author Organization [facility] Health Address [address] [facility] [place] [address] Care Team Providers Care Client Onboarding Analyst Name Role Phone Chapis Isabel MD Primary Care Provider [phone] Reason for Visit * Reason Onset Date Comments MEDICATION REFILL 04/03/2024 Encounter Details Date Type Department Care Team (Late st Contact Info) Description 04/03/2024 Refill [facility] - Hematology/Oncology [address] [place] [phone] Taylor Smith Update Information MEDICATION REFILL Social [...] landon Requestor's call back and/or fax number: [phone] Concerns/issues with the prescription?last month pharmacy didn;t have enough supply of oxycodone Pharmacy prescription is to be sent to: [facility]; morphine Route message to Nurse Pool documented in this encounter Plan of Treatment Upcoming Encounters Date Type Department Care Team (Late st Contact Info) Description 09/25/2024 10:00 AM CDT Hospital Encounter [facility] [address] [place] [address] [place] [address] [facility] [address] [place] [phone] 09/25/2024 10:40 AM CDT Office Visit [facility]ician Group - Hematology/Oncology [address] [place] [phone] Delonte Rosario MD [address] [place] [phone] 10/07/2024 3:00 PM CDT Office Visit [facility] Group - ENT [address] [place] [phone] Lalit Jackson MD [address] [place] [address] [place] [address] 10/07/2024 3:30 PM CDT Testing Visit [facility] - ENT [address] [place] [phone] Ronaldo Cavanaugh, PhD [address] [place] [address] [place] [address] 11/06/2024 10:00 AM CDT Appointment [facility] [address] [place] [address] [place] [address] [facility] [address] [place] [phone] 11/06/2024 2:40 PM CDT Office Visit [facility]ician Group - Family Medicine [address] [place] [phone] Chapis Isabel MD [address] [place] [address] [place] [address] 01/06/2025 12:30 PM CDT Appointment [facility] MRI [address] [place] [address] Colton Hollingsworth MD [address] [place] [address] 01/06/2025 1:30 PM CDT Appointment [facility] CAT SCAN [address] [place] [address] Colton Hollingsworth MD [address] [place] [address] 01/12/2025 9:00 AM CDT Appointment [facility]C [address] [place] [address] Colton Hollingsworth MD [address] [place] [address] documented as of this encounter Goals Goal Patient Goal Type Associated Problems Recent Progress Patient-Stated? Author Depression Lifestyle No Gayle Bellamy, AGRICULTURAL ENGINEERING TECHNICIANS-LEGAL SECRETARY documented as of this encounter Visit Diagnoses Not on filedocumented in this encounter Care Teams Client Onboarding Analyst Relationship Specialty Start Date End Date Chapis Isabel MD [address] [place] [phone] PCP - General 03/08/24 documented as of this encounter
[2024-09-19 05:19] VITALS: BP 125/67; PULSE 74; RESP 19; TEMP 36.6; O2SAT 100
--- NOTE | 2024-09-19 05:48 | ED_ITS ---
HPI - General Adult General Chief complaint: Syncope Stated complaint: Syncopal episode, hit face, +Eliquis Time Seen by Provider: 09/19/24 02:47 History of Present Illness HPI narrative: Patient 54-year-old female who presents emergency department with chief complaint of syncope. The patient states that she was in the kitchen reports that she felt lightheaded started to walk back to another room and then passed out on the floor patient reports she is currently undergoing chemo Related Data Home Medications ?Medication ?Instructions ?Recorded ?Confirmed ?Last Taken ?Type alprazolam 0.25 mg disintegrating 0.25 mg PO DAILY 01/09/20 01/16/20 01/16/20 06:00 History tablet buspirone 10 mg tablet 10 mg PO BID 01/09/20 01/16/20 01/15/20 History cetirizine 10 mg capsule (All Day 10 mg PO DAILY 01/09/20 01/16/20 01/15/20 History Allergy (cetirizine)) morphine 15 mg tablet, crush 15 mg PO Q12H 01/09/20 01/16/20 01/16/20 06:00 History resistant, extended release naloxone 4 mg/actuation nasal spray 4 mg intranasal Q2M PRN Sedation 01/09/20 01/12/20 Unknown History omeprazole 20 mg capsule,delayed 20 mg PO DAILY 01/09/20 01/16/20 01/15/20 History release ondansetron 8 mg oral soluble film 8 mg PO Q12H PRN Nausea 01/09/20 01/12/20 Unknown History prochlorperazine maleate 10 mg 10 mg PO Q8H PRN Nausea 01/09/20 01/12/20 Unknown History tablet sertraline 100 mg tablet 100 mg PO DAILY 01/09/20 01/16/20 01/15/20 History apixaban 5 mg tablet (Eliquis) mg 03/08/23 Unknown History Allergies Allergy/AdvReac Type Severity Reaction Status Date / Time No Known Allergies Allergy Verified 09/18/24 21:10 Review of Systems 2 Review of Systems: A 10 system review of systems was completed on the patient and is negative except for what is stated in the HPI. Nursing and ancillary documentation was reviewed. [facility] Past Medical History Medical History Brain mass Lung cancer Surgical History Surgical History History of brain surgery Family History Family History Unknown No problems noted. Social History Social History Smoking packs per day: 1 Smoking cigarettes per day: 20.0 Years smoked: 20 Smoking pack-years: 20.00 Smoking status: Former smoker Tobacco type: cigarettes Additional smoking assessment comments: QUIT 2012 Substance use: current Substance use type: marijuana Last use: 01/12/20 Gender identity (if verbalized by the patient): Female Spiritual care concerns: No Exam 2 Narrative: GENERAL: Well-appearing, well-nourished, and in no acute distress. HEAD: Normocephalic, atraumatic. EYES: PERRLA and EOMI. ENT: Nares clear, no rhinorrhea or epistaxis. Mucous membranes moist. NECK: Supple. CHEST: Clear to auscultation. No respiratory distress. HEART: Regular rate and rhythm. No murmur heard. Normal peripheral pulses. ABDOMEN: Soft, nontender, nondistended, normal active bowel sounds. EXTREMITIES: Normal range of motion. No edema. SKIN: Warm, dry, no rash. NEURO: No focal deficits. Alert and oriented x3. PSYCH: Normal mood and affect. Course Vital Signs Vital signs: Vital Signs Temperature 36.6 C 09/18/24 21:27 Pulse Rate 78 09/18/24 21:27 Respiratory Rate 17 09/18/24 21:27 Blood Pressure 111/84 09/18/24 21:27 Pulse Oximetry 100 09/18/24 21:27 Oxygen Delivery Room Air 09/18/24 21:27 Temperature 36.6 C 09/19/24 05:19 Pulse Rate 74 09/19/24 05:19 Respiratory Rate 19 09/19/24 05:19 Blood Pressure 125/67 09/19/24 05:19 Pulse Oximetry 100 09/19/24 05:19 Oxygen Delivery Room Air 09/19/24 03:03 Medical Decision Making MDM Narrative Medical decision making narrative: Differential diagnosis includes vasovagal syncope, electrolyte abnormality, pulmonary embolism Laboratory studies were obtained which were within normal limits electrolytes showed no acute abnormality CT head CTA chest and chest x-ray showed no acute abnormality troponin was negative Vital Signs Vital Signs: Vital Signs Temperature 36.6 C 09/18/24 21:27 Pulse Rate 78 09/18/24 21:27 Respiratory Rate 17 09/18/24 21:27 Blood Pressure 111/84 09/18/24 21:27 Pulse Oximetry 100 09/18/24 21:27 Oxygen Delivery Room Air 09/18/24 21:27 Temperature 36.6 C 09/19/24 05:19 Pulse Rate 74 09/19/24 05:19 Respiratory Rate 19 09/19/24 05:19 Blood Pressure 125/67 09/19/24 05:19 Pulse Oximetry 100 09/19/24 05:19 Oxygen Delivery Room Air 09/19/24 03:03 Lab Data 09/18/24 21:46 09/18/24 21:46 Labs: Lab Results 09/18/24 09/19/24 09/19/24 Range/Units 21:46 02:11 03:12 WBC 8.3 (4.5-10.0) K/mm3 RBC 4.58 (4.2-5.4) M/mm3 Hgb 13.1 (12.0-15.0) g/dL Hct 39.6 (37.0-47.0) % MCV 86.5 (80-100) fl MCH 28.6 (26-34) pg MCHC 33.1 (32-36) g/dl RDW 14.0 (11.5-14.5) % Plt Count 249 (150-375) k/mm3 MPV 10.2 (7.4-10.4) fl Immature Gran % (Auto) 0.4 (0-0.5) % Neut % (Auto) 65.2 (45.5-73.1) % Lymph % (Auto) 25.7 (18.3-44.2) % [place] % (Auto) 6.0 (2.6-8.5) % Eos % (Auto) 2.3 (0-4.4) % Baso % (Auto) 0.4 (0.2-1.2) % Lymph # (Auto) 2.13 (0.9-3.2) K/mm3 [place] # (Auto) 0.5 (0.1-0.6) K/mm3 Eos # (Auto) 0.2 (0-0.3) K/mm3 Baso # (Auto) 0.0 (0.0-0.1) K/mm3 Abs Immat Gran (auto) 0.03 (0.00-0.031) K/mm3 Absolute Neuts (auto) 5.4 (1.3-6.7) K/mm3 Absolute Nucleated RBC 0.000 (0.0-0.012) K/mm3 Nucleated RBC % 0.0 (0.0-0.2) % Sodium 140 (137-145) mmol/L Potassium 3.9 (3.4-5.0) mmol/L Chloride 105 (98-107) mmol/L Carbon Dioxide 24 (22-30) mmol/L Anion Gap 11 (4-12) mmol/L BUN 18 H (7-17) mg/dL Creatinine 0.69 L (0.7-1.0) mg/dL Estim Creat Clear Calc 71 ml/min Estimated GFR > 60 (59 - ) Glucose 125 H (65-110) mg/dL Calcium 9.3 (8.4-10.2) mg/dL Magnesium 1.7 (1.6-2.3) mg/dL Total Bilirubin 0.4 (0.2-1.3) mg/dL AST 22 (14-36) U/L ALT 16 (6-35) U/L Alkaline Phosphatase 95 (38-126) U/L Troponin I < 0.012 (0.000-0.034) ng/mL Total Protein 8.0 (6.3-8.2) g/dL Albumin 4.5 (3.5-5.1) g/dL POC Urine HCG, Qual Negative (Negative) Discharge Plan Discharge Clinical Impression: Vasovagal syncope Patient Disposition: Home, Self-Care Condition: Stable Instructions: Antibiotic Form, Syncope (ED) Patient Language: Micronesian Prescriptions: No Action alprazolam 0.25 mg tablet,disintegrating 0.25 mg PO DAILY buspirone 10 mg tablet 10 mg PO BID All Day Allergy (cetirizine) 10 mg capsule 10 mg PO DAILY morphine 15 mg tablet,oral only,extnd release 15 mg PO Q12H naloxone 4 mg/actuation spray,non-aerosol 4 mg NASAL Q2M PRN (Reason: Sedation) Rx Instructions: spray 1 dose into ONE nostril; alternate nostrils w each dose until help arrives omeprazole 20 mg capsule,delayed release(DR/EC) 20 mg PO DAILY ondansetron 8 mg film 8 mg PO Q12H PRN (Reason: Nausea) prochlorperazine maleate 10 mg tablet 10 mg PO Q8H PRN (Reason: Nausea) sertraline 100 mg tablet 100 mg PO DAILY Eliquis 5 mg tablet oxycodone 10 mg tablet 10 mg PO Q4H PRN (Reason: pain (scale score 7-10)) Qty: 30 0RF Follow-up/Referrals: PHYSICIAN NOT ON STAFF,NONSTAFF [Primary Care Provider] - Time of Disposition: 06:46
== END 2024-09-19 06:58 | disposition home or self-care (01) ==
PROVIDERS: Emergency Provider Emergency Medicine
DX: R55 Syncope and collapse (principal); C34.90 Malignant neoplasm of unspecified part of unspecified bronchus or lung; Z87.891 Personal history of nicotine dependence; Z79.01 Long term (current) use of anticoagulants; Z79.60 Long term (current) use of unspecified immunomodulators and immunosuppressants; I44.0 Atrioventricular block, first degree; R94.31 Abnormal electrocardiogram [ECG] [EKG]
CPT/HCPCS: 36415; 70450; 71046; 71275; 80053; 81025; 83735; 84484; 85025; 93005; 99284; Q9967

== ENCOUNTER 2025-03-29 17:08 | Emergency (ER) | payer MEDICARE, MEDICAID, SELFPAY ==
--- NOTE | ~2025-03-29 | XR_ITS ---
EXAMINATION: XR tibia fibula RT 2V, 03/29/2025 17:30 CDT HISTORY: FB eval COMPARISON: No comparisons available. Findings: No acute fracture or malalignment. No significant degenerative changes. Soft tissues unremarkable. Impression: No metallic radiopaque foreign body identified Reviewed, dictated and finalized at location P. Impression: No metallic radiopaque foreign body identified
[2025-03-29 17:10] VITALS: BP 136/84; PULSE 107; RESP 18; TEMP 36.3; O2SAT 100
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
== END 2025-03-29 17:57 | disposition home or self-care (01) ==
LOC: ANHED 17:52
PROVIDERS: Emergency Provider Emergency Medicine
DX: L03.115 Cellulitis of right lower limb (principal); Z79.01 Long term (current) use of anticoagulants; R22.0 Localized swelling, mass and lump, head; Z85.118 Personal history of other malignant neoplasm of bronchus and lung
CPT/HCPCS: 73590; 99283